=== PATIENT | male | born 1940 | race Caucasian/White ===

== ENCOUNTER 2016-09-16 13:56 | Outpatient (CLI) | payer MEDICARE | END 2016-09-16 13:57 | disposition home or self-care (01) | DX: E87.5 Hyperkalemia (principal) ==

== ENCOUNTER 2017-10-25 08:00 | Outpatient (CLI) | payer MEDICARE ==
[2017-10-25 13:33] LABS: ALBUMIN 3.9 g/dL (3.2-5.5); ALBUMIN/GLOBULIN RATIO 1.3 (1.0-2.2); ALKALINE PHOSPHATASE 73 IU/L (42-121); ALT ALANINE AMINOTRANSFERASE 41 IU/L (10-60); AST ASPARTATE AMINOTRANSFERASE 40 IU/L (10-42); BILIRUBIN,TOTAL 0.6 mg/dL (0.2-1.0); BUN - BLOOD UREA NITROGEN 12 mg/dL (6-20); CALCIUM 9.2 mg/dL (8.5-10.3); CARBON DIOXIDE - CO2 27 mmol/L (21-32); CHLORIDE 98 mmol/L (101-111); CHOLESTEROL 139 mg/dL; CREATININE 1.1 mg/dL (0.6-1.2); GFR - MDRD 65 (>89); GLUCOSE 132 mg/dL (70-100); HDL CHOLESTEROL 35 mg/dL; HEMOGLOBIN A1C 0.81 g/dL; HEMOGLOBIN A1C % 6.5 % (4.6-6.2); LDL CHOLESTEROL,CALCULATED 31 mg/dL; LDL/HDL RATIO 0.9 (<3.6); SODIUM 136 mmol/L (135-145); TOTAL PROTEIN 6.9 g/dL (6.7-8.2); VLDL CHOLESTEROL 73 mg/dL
== END 2017-10-25 08:01 | disposition home or self-care (01) ==
LOC: LAB.WCP 08:00
PROVIDERS: ATTEND Family Medicine
DX: E11.9 Type 2 diabetes mellitus without complications (principal); E78.9 Disorder of lipoprotein metabolism, unspecified; Z12.5 Encounter for screening for malignant neoplasm of prostate
CPT/HCPCS: 36415; 80053; 80061; 83036; G0103; 83721; 84153

== ENCOUNTER 2018-05-07 08:00 | Outpatient (CLI) | payer MEDICARE ==
[2018-05-08 14:12] LABS: HEPATITIS A IGM NON-REACTIVE (NON-REACTIVE); HEPATITIS B CORE ANTIBODY IGM NON-REACTIVE (NON-REACTIVE); HEPATITIS B SURFACE ANTIGEN NON-REACTIVE (NON-REACTIVE); HEPATITIS C ANTIBODY NON-REACTIVE (NON-REACTIVE)
== END 2018-05-07 08:01 | disposition home or self-care (01) ==
LOC: LAB.WCP 08:00
PROVIDERS: ATTEND Family Medicine
DX: R94.5 Abnormal results of liver function studies (principal)
CPT/HCPCS: 36415; 80074

== ENCOUNTER 2018-12-24 08:00 | Outpatient (CLI) | payer MEDICARE ==
[2018-12-24 19:33] LABS: CALCIUM 9.6 mg/dL (8.5-10.3); CREATININE 0.9 mg/dL (0.6-1.2); MAGNESIUM 2.5 mg/dL (1.7-2.8)
== END 2018-12-24 23:59 | disposition home or self-care (01) ==
LOC: LAB.WCP 08:00
PROVIDERS: ATTEND Physician Assistant Medical
DX: R25.2 Cramp and spasm (principal)
CPT/HCPCS: 36415; 80048; 83735

== ENCOUNTER 2018-12-27 07:10 | Outpatient (CLI) | payer MEDICARE ==
[2018-12-27 12:49] LABS: BASOPHILS # (AUTO) 0.1 10^3/uL (0.0-0.1); BASOPHILS % (AUTO) 1.1 %; EOSINOPHILS % (AUTO) 0.2 %; HGB - HEMOGLOBIN 15.3 g/dL (14.0-18.0); LYMPHOCYTES # (AUTO) 1.3 10^3/uL (1.5-3.5); LYMPHOCYTES % (AUTO) 24.9 %; MEAN CORPUSCULAR HEMOGLOBIN 30.9 pg (27.0-31.0); MEAN CORPUSCULAR HGB CONC 33.7 g/dL (32.0-36.0); MEAN CORPUSCULAR VOLUME 91.6 fL (80.0-94.0); MEAN PLATELET VOLUME 9.3 fL (7.4-11.4); MONOCYTES # (AUTO) 0.5 10^3/uL (0.0-1.0); MONOCYTES % (AUTO) 8.7 %; NEUTROPHILS # (AUTO) 3.5 10^3/uL (1.5-6.6); NEUTROPHILS % (AUTO) 65.1 %; PLT - PLATELET COUNT 145 10^3/uL (130-450); RED BLOOD COUNT 4.93 10^6/uL (4.70-6.10); RED CELL DISTRIBUTION WIDTH 13.4 % (12.0-15.0); WHITE BLOOD COUNT 5.3 x10^3/uL (4.8-10.8)
[2018-12-27 13:33] LABS: ALBUMIN/GLOBULIN RATIO 1.4 (1.0-2.2); ALKALINE PHOSPHATASE 85 IU/L (42-121); ALT ALANINE AMINOTRANSFERASE 108 IU/L (10-60); AST ASPARTATE AMINOTRANSFERASE 123 IU/L (10-42); BILIRUBIN,TOTAL 0.8 mg/dL (0.2-1.0); BUN - BLOOD UREA NITROGEN 15 mg/dL (6-20); CALCIUM 9.4 mg/dL (8.5-10.3); CARBON DIOXIDE - CO2 27 mmol/L (21-32); CHLORIDE 100 mmol/L (101-111); CHOL/HDL RATIO 4.2 (<5.0); CHOLESTEROL 166 mg/dL; CREATININE 1.1 mg/dL (0.6-1.2); GFR - MDRD 65 (>89); GLUCOSE 199 mg/dL (70-100); HDL CHOLESTEROL 40 mg/dL; SODIUM 136 mmol/L (135-145); TOTAL PROTEIN 6.8 g/dL (6.7-8.2)
[2018-12-27 13:55] LABS: LDL CHOLESTEROL,DIRECT 75 mg/dL; LDLD/HDL RATIO 1.9 (<3.6)
[2018-12-27 14:04] LABS: FREE T4 (FREE THYROXINE) 0.72 ng/dL (0.58-1.64)
[2018-12-27 14:29] LABS: HB2 TOTAL 16.6 g/dL; HEMOGLOBIN A1C 1.09 g/dL; HEMOGLOBIN A1C % 8.2 % (4.6-6.2)
== END 2018-12-27 23:59 ==
LOC: LAB.WCP 07:10
PROVIDERS: ATTEND Family Medicine
DX: E11.9 Type 2 diabetes mellitus without complications (principal); R00.1 Bradycardia, unspecified; I25.10 Atherosclerotic heart disease of native coronary artery without angina pectoris
CPT/HCPCS: 36415; 80053; 80061; 83036; 83721; 84439; 84443; 85025

== ENCOUNTER 2020-03-19 16:20 | Outpatient (CLI) | payer MEDICARE | END 2020-03-19 16:21 | disposition short-term general hospital (02) | LOC: EMS 16:20 | PROVIDERS: ATTEND Surgery | DX: R07.9 Chest pain, unspecified (principal) | CPT/HCPCS: A0425; A0433 ==

== ENCOUNTER 2020-10-05 07:13 | Outpatient (CLI) | payer MEDICARE ==
[2020-10-05 12:43] LABS: BASOPHILS # (AUTO) 0.1 10^3/uL (0.0-0.1); BASOPHILS % (AUTO) 1.3 %; EOSINOPHILS # (AUTO) 0.2 10^3/uL (0.0-0.7); EOSINOPHILS % (AUTO) 5.1 %; HGB - HEMOGLOBIN 15.5 g/dL (14.0-18.0); LYMPHOCYTES # (AUTO) 1.1 10^3/uL (1.5-3.5); MEAN CORPUSCULAR HEMOGLOBIN 31.8 pg (27.0-31.0); MEAN CORPUSCULAR HGB CONC 34.5 g/dL (32.0-36.0); MEAN PLATELET VOLUME 11.3 fL (7.4-11.4); MONOCYTES # (AUTO) 0.3 10^3/uL (0.0-1.0); MONOCYTES % (AUTO) 7.6 %; NEUTROPHILS # (AUTO) 2.7 10^3/uL (1.5-6.6); NEUTROPHILS % (AUTO) 60.8 %; PLT - PLATELET COUNT 150 10^3/uL (130-450); RED BLOOD COUNT 4.88 10^6/uL (4.70-6.10); RED CELL DISTRIBUTION WIDTH 12.4 % (12.0-15.0); WHITE BLOOD COUNT 4.5 x10^3/uL (4.8-10.8)
[2020-10-05 13:20] LABS: ALBUMIN 3.6 g/dL (3.2-5.5); ALBUMIN/GLOBULIN RATIO 1.2 (1.0-2.2); ALKALINE PHOSPHATASE 81 IU/L (42-121); ALT ALANINE AMINOTRANSFERASE 36 IU/L (10-60); AST ASPARTATE AMINOTRANSFERASE 27 IU/L (10-42); BILIRUBIN,TOTAL 0.7 mg/dL (0.2-1.0); BUN - BLOOD UREA NITROGEN 19 mg/dL (6-20); CALCIUM 9.3 mg/dL (8.5-10.3); CARBON DIOXIDE - CO2 28 mmol/L (21-32); CHLORIDE 95 mmol/L (101-111); CHOL/HDL RATIO 6.3 (<5.0); CHOLESTEROL 232 mg/dL; GLUCOSE 365 mg/dL (70-100); HDL CHOLESTEROL 37 mg/dL; TOTAL PROTEIN 6.5 g/dL (6.7-8.2); URIC ACID 3.5 mg/dL (2.6-7.2)
[2020-10-05 13:37] LABS: CREATININE,URINE 52.4 mg/dL; MICROALBUM/CREATININE RATIO,UR 240.5 ug/mg (<30.0); MICROALBUMIN,URINE 12.6 mg/dL (0-300.0)
[2020-10-05 13:53] LABS: HEMOGLOBIN A1c% 12.4 % (4.27-6.07)
[2020-10-05 14:05] LABS: LDL CHOLESTEROL,DIRECT 101 mg/dL; LDLD/HDL RATIO 2.7 (<3.6)
[2020-10-05 14:10] LABS: FREE T4 (FREE THYROXINE) 0.72 ng/dL (0.58-1.64)
== END 2020-10-05 23:59 | disposition home or self-care (01) ==
LOC: LAB.WCP 07:13
PROVIDERS: ATTEND Family Medicine
DX: E11.9 Type 2 diabetes mellitus without complications (principal); M10.9 Gout, unspecified
CPT/HCPCS: 36415; 80053; 80061; 82043; 82570; 83036; 83721; 84439; 84443; 84550; 85025

== ENCOUNTER 2021-02-04 08:00 | Outpatient (CLI) | payer MEDICARE ==
[2021-02-04 12:22] LABS: BASOPHILS % (AUTO) 0.8 %; EOSINOPHILS % (AUTO) 0.2 %; HCT - HEMATOCRIT 44.8 % (42.0-52.0); HGB - HEMOGLOBIN 15.9 g/dL (14.0-18.0); LYMPHOCYTES # (AUTO) 1.4 10^3/uL (1.5-3.5); LYMPHOCYTES % (AUTO) 25.4 %; MEAN CORPUSCULAR HEMOGLOBIN 32.4 pg (27.0-31.0); MEAN CORPUSCULAR HGB CONC 35.5 g/dL (32.0-36.0); MEAN CORPUSCULAR VOLUME 91.2 fL (80.0-94.0); MEAN PLATELET VOLUME 11.3 fL (7.4-11.4); MONOCYTES # (AUTO) 0.4 10^3/uL (0.0-1.0); MONOCYTES % (AUTO) 8.3 %; NEUTROPHILS # (AUTO) 3.5 10^3/uL (1.5-6.6); NEUTROPHILS % (AUTO) 65.1 %; PLT - PLATELET COUNT 156 10^3/uL (130-450); RED BLOOD COUNT 4.91 10^6/uL (4.70-6.10); RED CELL DISTRIBUTION WIDTH 12.5 % (12.0-15.0); WHITE BLOOD COUNT 5.3 x10^3/uL (4.8-10.8)
[2021-02-04 12:33] LABS: ESTIMATED AVERAGE GLUCOSE 344 mg/dL (70-100); HEMOGLOBIN A1c% 13.6 % (4.27-6.07)
[2021-02-04 12:39] LABS: ALBUMIN 3.9 g/dL (3.2-5.5); ALBUMIN/GLOBULIN RATIO 1.2 (1.0-2.2); ALKALINE PHOSPHATASE 104 IU/L (42-121); ALT ALANINE AMINOTRANSFERASE 61 IU/L (10-60); AST ASPARTATE AMINOTRANSFERASE 45 IU/L (10-42); BILIRUBIN,TOTAL 1.1 mg/dL (0.2-1.0); BUN - BLOOD UREA NITROGEN 25 mg/dL (6-20); CALCIUM 9.5 mg/dL (8.5-10.3); CARBON DIOXIDE - CO2 25 mmol/L (21-32); CHLORIDE 97 mmol/L (101-111); CHOL/HDL RATIO 6.5 (<5.0); CHOLESTEROL 279 mg/dL; CREATININE 0.9 mg/dL (0.6-1.2); GFR - MDRD 81 (>89); GLUCOSE 368 mg/dL (70-100); HDL CHOLESTEROL 43 mg/dL; POTASSIUM 4.5 mmol/L (3.5-5.0); SODIUM 131 mmol/L (135-145); THYROID STIMULATING HORMONE 4.05 uIU/mL (0.34-5.60); TOTAL PROTEIN 7.2 g/dL (6.7-8.2); TRIGLYCERIDES 613 mg/dL
[2021-02-04 13:09] LABS: LDL CHOLESTEROL,DIRECT 124 mg/dL; LDLD/HDL RATIO 2.9 (<3.6)
== END 2021-02-04 23:59 | disposition home or self-care (01) ==
LOC: LAB.WCP 08:00
PROVIDERS: ATTEND Family Medicine
DX: E11.8 Type 2 diabetes mellitus with unspecified complications (principal); F03.90 Unspecified dementia, unspecified severity, without behavioral disturbance, psychotic disturbance, mood disturbance, and anxiety
CPT/HCPCS: 36415; 80053; 80061; 82607; 83036; 83721; 84443; 85025; 86592

== ENCOUNTER 2021-05-18 08:00 | Outpatient (CLI) | payer MEDICARE ==
--- NOTE | 2021-05-18 11:02 | XRAY Report ---
PROCEDURE: Knee 4 View LT INDICATIONS: L KNEE PX TECHNIQUE: 4 views of the left knee(s) were acquired. COMPARISON: None. FINDINGS: Bones: No fractures or dislocations. No suspicious bony lesions. There is tricompartmental knee albertina int degeneration, most pronounced in the medial femorotibial compartment and patellofemoral compartme nt. Soft tissues: Small joint effusion. No suspicious soft tissue calcifications. Vascular calcificatio ns consistent with atherosclerosis. IMPRESSION: 1. Moderate tricompartmental osteoarthritis. 2. Small knee joint effusion. Reviewed by: Natalie Courtney MD on 05/18/2021 11:00 AM PDT Approved by: Natalie Courtney MD on 05/18/2021 11:00 AM PDT Station ID: [id number]
== END 2021-05-18 23:59 | disposition home or self-care (01) ==
LOC: DI.N 08:00
PROVIDERS: ATTEND Nurse Practitioner
DX: M17.12 Unilateral primary osteoarthritis, left knee (principal); M25.462 Effusion, left knee

== ENCOUNTER 2021-05-28 17:36 | Outpatient (CLI) | payer MEDICARE | END 2021-05-28 17:37 | disposition critical access hospital (66) | LOC: EMS 17:36 | DX: Z04.3 Encounter for examination and observation following other accident (principal); E11.65 Type 2 diabetes mellitus with hyperglycemia; Z79.84 Long term (current) use of oral hypoglycemic drugs | CPT/HCPCS: A0425; A0429 ==

== ENCOUNTER 2021-05-28 17:57 | Emergency (ER) | payer MEDICARE ==
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
[2021-05-28] MEDS ORDERED: SODIUM CHLORIDE 0.9% 1,000 ML IV STA (18:48)
[2021-05-28] MEDS ORDERED: INSULIN REGULAR HUMAN 100 UNIT/1 ML 10 ML MDV IVP STA (18:49)
[2021-05-28 20:22] LABS: CALCIUM 8.9 mg/dL (8.5-10.3); CREATININE 0.8 mg/dL (0.6-1.2); MAGNESIUM 1.8 mg/dL (1.7-2.8); PHOSPHORUS 2.8 mg/dL (2.5-4.6); POTASSIUM 4.3 mmol/L (3.5-5.0)
[2021-05-28 20:26] LABS: BILIRUBIN,URINE NEGATIVE (NEGATIVE); GLUCOSE, URINE (UA) >=1000 mg/dL (NEGATIVE); KETONES,URINE (UA) NEGATIVE (NEGATIVE); LEUKOCYTE ESTERASE, URINE NEGATIVE (NEGATIVE); NITRITE,URINE NEGATIVE (NEGATIVE); OCCULT BLOOD,URINE TRACE-LYSE (NEGATIVE); PROTEIN,URINE TRACE mg/dL (NEGATIVE); UROBILINOGEN,URINE 0.2 (NORMAL) E.U./dL (NORMAL)
[2021-05-28 20:28] LABS: CLARITY,URINE CLEAR (CLEAR)
[2021-05-28 20:28] LABS: BASOPHILS # (AUTO) 0.1 10^3/uL (0.0-0.1); BASOPHILS % (AUTO) 1.1 %; EOSINOPHILS % (AUTO) 0.2 %; HCT - HEMATOCRIT 39.8 % (42.0-52.0); HGB - HEMOGLOBIN 14.6 g/dL (14.0-18.0); LYMPHOCYTES # (AUTO) 1.1 10^3/uL (1.5-3.5); LYMPHOCYTES % (AUTO) 21.2 %; MEAN CORPUSCULAR HGB CONC 36.7 g/dL (32.0-36.0); MEAN PLATELET VOLUME 10.6 fL (7.4-11.4); MONOCYTES # (AUTO) 0.5 10^3/uL (0.0-1.0); MONOCYTES % (AUTO) 9.6 %; NEUTROPHILS # (AUTO) 3.6 10^3/uL (1.5-6.6); NEUTROPHILS % (AUTO) 67.5 %; PLT - PLATELET COUNT 198 10^3/uL (130-450); RED BLOOD COUNT 4.42 10^6/uL (4.70-6.10); RED CELL DISTRIBUTION WIDTH 12.5 % (12.0-15.0); WHITE BLOOD COUNT 5.3 x10^3/uL (4.8-10.8)
[2021-05-28 20:55] VITALS: BP 177/82
--- NOTE | 2021-05-29 13:40 | CT Report ---
PROCEDURE: CERVICAL SPINE WO INDICATIONS: head injury TECHNIQUE: Noncontrast 3 mm thick sections acquired from the skull base to the T4 level. Sagittal and coronal r eformats were then constructed. For radiation dose reduction, the following was used: automated exp osure control, adjustment of mA and/or kV according to patient size. COMPARISON: Cervical spine MRI 05/03/2011. FINDINGS: Image quality: Excellent. Bones: No acute fractures or dislocations. Visualized superior ribs are intact. Straightening of t he normal cervical lordosis is most likely secondary to positioning. Mild degenerative changes are se en in the cervical spine that are worst at the C5-6 and C6-7 levels. No high-grade spinal canal narro wing. Soft tissues: Prevertebral soft tissues are normal in thickness. No paravertebral hematomas. No ap ical pneumothoraces. Atherosclerotic calcifications are seen in the carotid bifurcations and the aort ic arch. IMPRESSION: No acute cervical spine fracture or subluxation. Preliminary findings were discussed with the emergency department physician, Dr. Garcia, on the night the study was performed, and this report is being submitted later secondary to system downtime. Reviewed by: Mahendra Pantoja MD on 05/29/2021 1:39 PM PDT Approved by: Mahendra Pantoja MD on 05/29/2021 1:39 PM PDT Station ID: [id number]
--- NOTE | 2021-05-29 13:42 | CT Report ---
PROCEDURE: HEAD WO INDICATIONS: head injury TECHNIQUE: Noncontrast 4.5 mm thick angled axial sections acquired from the foramen magnum to the vertex. For r adiation dose reduction, the following was used: automated exposure control, adjustment of mA and/or kV according to patient size. COMPARISON: None. FINDINGS: Image quality: Excellent. CSF spaces: Basal cisterns are patent. No extra-axial fluid collections. Ventricles are symmetric in size and shape. Brain: No midline shift. No acute intraparenchymal hemorrhage or mass effect. There is mild diffuse cerebral and cerebellar volume loss for age. Mild scattered hypodensities in the subcortical and rene ventricular white matter nonspecific, but most commonly encountered in the setting of chronic microva scular ischemic changes. Skull and face: Calvarium and visualized facial bones are intact, without suspicious lesions. Sinuses: Visualized sinuses and mastoids are clear. IMPRESSION: No acute intracranial abnormality. Preliminary findings were discussed with the emergency department physician, Dr. Garcia, on the night the study was performed, and this report is being submitted later secondary to system downtime. Reviewed by: Mahendra Pantoja MD on 05/29/2021 1:41 PM PDT Approved by: Mahendra Pantoja MD on 05/29/2021 1:41 PM PDT Station ID: [id number]
--- NOTE | 2021-05-29 13:44 | XRAY Report ---
PROCEDURE: Chest 1 View X-Ray INDICATIONS: altered TECHNIQUE: One view of the chest was acquired. COMPARISON: Chest radiographs dated 02/28/2017 FINDINGS: Surgical changes and devices: None. Lungs and pleura: No pleural effusions or pneumothorax. Lungs are clear. Mediastinum: Mediastinal contours appear normal. Heart size is normal. Mild aortic atherosclerotic calcifications. Bones and chest wall: No suspicious bony lesions. Overlying soft tissues appear unremarkable. IMPRESSION: No acute cardiopulmonary abnormality. Preliminary findings were discussed with the emergency department physician, Dr. Garcia, on the night the study was performed, and this report is being submitted later secondary to system downtime. Reviewed by: Mahendra Pantoja MD on 05/29/2021 1:42 PM PDT Approved by: Mahendra Pantoja MD on 05/29/2021 1:42 PM PDT Station ID: [id number]
--- NOTE | 2021-05-29 13:46 | XRAY Report ---
PROCEDURE: Hip w/Pelvis 2-3V RT INDICATIONS: hip inj TECHNIQUE: AP pelvis with lateral view of the right hip. COMPARISON: CT abdomen/pelvis 05/14/2013. FINDINGS: Bones: No acute fractures or dislocations. Pelvic ring appears intact. No suspicious bony lesions. Degenerative changes are seen in the included lumbar spine in the sacroiliac joints. There are mild symmetric degenerative changes in the hips. Soft tissues: The visualized bowel gas pattern is normal. No suspicious soft tissue calcifications. IMPRESSION: No acute osseous abnormality. If there is clinical concern or persistent symptoms, addit ional imaging such as repeat radiographs or advanced imaging (e.g. CT, MRI) may be helpful for furthe r evaluation. Preliminary findings were discussed with the emergency department physician, Dr. Garcia, on the night the study was performed, and this report is being submitted later secondary to system downtime. Reviewed by: Mahendra Pantoja MD on 05/29/2021 1:45 PM PDT Approved by: Mahendra Pantoja MD on 05/29/2021 1:45 PM PDT Station ID: [id number]
== END 2021-05-28 20:52 | disposition home or self-care (01) ==
LOC: EDUNIT# → ED 17:57 → SUPCPDRO 17:57 → ED 20:52
DX: E11.65 Type 2 diabetes mellitus with hyperglycemia (principal); S09.90XA Unspecified injury of head, initial encounter; S70.01XA Contusion of right hip, initial encounter; Z79.84 Long term (current) use of oral hypoglycemic drugs; W18.39XA Other fall on same level, initial encounter; Y93.01 Activity, walking, marching and hiking
CPT/HCPCS: 36415; 70450; 71045; 72125; 73502; 80048; 81003; 83605; 83735; 84100; 85025; 99281; 99284; J1815; 81001; 87086

== ENCOUNTER 2021-06-23 21:26 | Outpatient (CLI) | payer MEDICARE | END 2021-06-23 21:27 | disposition critical access hospital (66) | LOC: EMS 21:26 | DX: R41.0 Disorientation, unspecified (principal) | CPT/HCPCS: A0425; A0429 ==

== ENCOUNTER 2021-06-23 21:44 | Emergency (ER) | payer MEDICARE ==
[2021-06-23 22:17] LABS: MUDS CUTOFF CONCENTRATIONS CUTOFF CONC BELOW:
[2021-06-23 22:20] LABS: BILIRUBIN,URINE NEGATIVE (NEGATIVE); GLUCOSE, URINE (UA) >=1000 mg/dL (NEGATIVE); KETONES,URINE (UA) NEGATIVE (NEGATIVE); LEUKOCYTE ESTERASE, URINE NEGATIVE (NEGATIVE); NITRITE,URINE NEGATIVE (NEGATIVE); OCCULT BLOOD,URINE NEGATIVE (NEGATIVE); PROTEIN,URINE NEGATIVE (NEGATIVE); UROBILINOGEN,URINE 0.2 (NORMAL) E.U./dL (NORMAL)
[2021-06-23 22:29] LABS: BASOPHILS # (AUTO) 0.1 10^3/uL (0.0-0.1); BASOPHILS % (AUTO) 0.9 %; EOSINOPHILS % (AUTO) 0.5 %; HCT - HEMATOCRIT 38.7 % (42.0-52.0); HGB - HEMOGLOBIN 14.1 g/dL (14.0-18.0); LYMPHOCYTES # (AUTO) 1.5 10^3/uL (1.5-3.5); LYMPHOCYTES % (AUTO) 25.5 %; MEAN CORPUSCULAR HEMOGLOBIN 32.9 pg (27.0-31.0); MEAN CORPUSCULAR HGB CONC 36.4 g/dL (32.0-36.0); MEAN CORPUSCULAR VOLUME 90.2 fL (80.0-94.0); MEAN PLATELET VOLUME 10.5 fL (7.4-11.4); MONOCYTES # (AUTO) 0.6 10^3/uL (0.0-1.0); MONOCYTES % (AUTO) 10.4 %; NEUTROPHILS # (AUTO) 3.7 10^3/uL (1.5-6.6); NEUTROPHILS % (AUTO) 62.4 %; PLT - PLATELET COUNT 203 10^3/uL (130-450); RED BLOOD COUNT 4.29 10^6/uL (4.70-6.10); RED CELL DISTRIBUTION WIDTH 12.5 % (12.0-15.0); WHITE BLOOD COUNT 5.9 x10^3/uL (4.8-10.8)
[2021-06-23 22:32] LABS: AMPHETAMINE SCREEN,URINE NEGATIVE (NEGATIVE); BARBITURATE SCREEN,UR NEGATIVE (NEGATIVE); BENZODIAZEPINES SCREEN, URINE NEGATIVE (NEGATIVE); CLARITY,URINE CLEAR (CLEAR); COCAINE SCREEN URINE NEGATIVE (NEGATIVE); METHADONE SCREEN, URINE NEGATIVE (NEGATIVE); METHAMPHETAMINES SCREEN, URINE NEGATIVE (NEGATIVE); OPIATE SCREEN, URINE NEGATIVE (NEGATIVE); OXYCODONE SCREEN, URINE NEGATIVE (NEGATIVE); PROPOXYPHENE SCREEN, URINE NEGATIVE (NEGATIVE); THC CANNABINOID SCREEN, URINE NEGATIVE (NEGATIVE); TRICYCLIC ANTIDEPRESSANT,URINE NEGATIVE (NEGATIVE)
[2021-06-23 22:46] LABS: CALCIUM 9.6 mg/dL (8.5-10.3); CARBON DIOXIDE - CO2 22 mmol/L (21-32); CHLORIDE 94 mmol/L (101-111); GLUCOSE 486 mg/dL (70-100); POTASSIUM 4.4 mmol/L (3.5-5.0); SODIUM 127 mmol/L (135-145)
--- NOTE | 2021-06-23 22:56 | CT Report ---
PROCEDURE: HEAD WO INDICATIONS: dementia, worsening confusion today TECHNIQUE: Noncontrast 4.5 mm thick angled axial sections acquired from the foramen magnum to the vertex. For r adiation dose reduction, the following was used: automated exposure control, adjustment of mA and/or kV according to patient size. COMPARISON: CT head 05/28/2021. FINDINGS: Image quality: Excellent. CSF spaces: Basal cisterns are patent. No extra-axial fluid collections. Ventricles are symmetric in size and shape. Brain: No midline shift. No acute intracranial hemorrhage or mass effect. Mild diffuse cerebral and cerebellar volume loss is seen for age with resulting prominence of the ventricles and sulci. Mild sc attered hypodensities in the subcortical and periventricular white matter are nonspecific, but most c ommonly encountered in the setting of chronic microvascular ischemic changes. Skull and face: Calvarium and visualized facial bones are intact, without suspicious lesions. Sinuses: Visualized sinuses and mastoids are clear. IMPRESSION: No acute intracranial abnormality. Reviewed by: Mahendra Pantoja MD on 06/23/2021 10:55 PM PDT Approved by: Mahendra Pantoja MD on 06/23/2021 10:55 PM PDT Station ID: [id number]
[2021-06-23 23:23] LABS: ACETAMINOPHEN < 10 ug/mL (10-30); ALBUMIN 3.5 g/dL (3.2-5.5); ALBUMIN/GLOBULIN RATIO 1.2 (1.0-2.2); ALKALINE PHOSPHATASE 93 IU/L (42-121); ALT ALANINE AMINOTRANSFERASE 70 IU/L (10-60); AST ASPARTATE AMINOTRANSFERASE 39 IU/L (10-42); BILIRUBIN,TOTAL 0.5 mg/dL (0.2-1.0); BUN - BLOOD UREA NITROGEN 54 mg/dL (6-20); CREATININE 0.9 mg/dL (0.6-1.2); ETOH - ETHANOL < 5.0 mg/dL; GFR - MDRD 81 (>89); LIPASE 37 U/L (22-51); SALICYLATE < 6.0 mg/dL; TOTAL PROTEIN 6.5 g/dL (6.7-8.2)
[2021-06-23] MEDS ORDERED: INSULIN REGULAR HUMAN 100 UNIT/1 ML 10 ML MDV IVP STA (23:47)
[2021-06-23] MEDS ORDERED: ACETAMINOPHEN 325 MG TABLET PO STA (23:48)
--- NOTE | 2021-06-24 00:10 | ED Physician Documentation ---
History of Present Illness - Stated complaint Stated Complaint: INCREASED CONFUSION - Chief complaint Chief Complaint: Neuro - History obtained from History obtained from: Patient - Additonal information Additional information: 81yM with pmh dementia presents with confusion this evening. Patient is AOX2 (person and place, not time). further history limited by patient dementia. Review of Systems Unable to obtain: Dementia PD PAST MEDICAL HISTORY - Past Medical History Cardiovascular: Hypertension, High cholesterol, Coronary artery disease Respiratory: Pneumonia Neuro: Dementia Endocrine/Autoimmune: Type 2 diabetes GI: Diverticulitis HEENT: Macular degeneration Musculoskeletal: Gout - Past Surgical History Past Surgical History: Yes General: Cholecystectomy, Bowel surgery (colon resection) Cardiovascular: Angioplasty - Present Medications Home Medications: Ambulatory Orders Medication Instructions Recorded Confirmed Aspirin Chewable [[place] 81 DAILY 01/11/13 01/11/13 Aspirin] Epinephrine [Epipen] 0.3 mg IM ONCE PRN #1 01/11/13 Imipramine HCl 100 mg PO HS 01/11/13 01/11/13 Lisinopril 10 01/11/13 01/11/13 Lubiprostone [Amitiza] 24 mcg PO DAILY 01/11/13 01/11/13 Metformin HCl 1,000 mg PO BID 01/11/13 01/11/13 Nitroglycerin [Nitrostat] 0.4 mg SL Q5MIN PRN 01/11/13 01/11/13 [place]-3 Fatty Acids/Fish Oil [Fish 1 each PO BID 01/11/13 01/11/13 Oil 1,000 mg Capsule] Senna [Senokot] 17.2 mg PO DAILY 01/11/13 01/11/13 carisoprodoL [Soma] 350 mg PO Q6H PRN 01/11/13 01/11/13 glipiZIDE [Glucotrol Xl] 5 01/11/13 01/11/13 Pravastatin Sodium 10 mg PO DAILY 05/14/13 05/14/13 Cetirizine HCl [Zyrtec] 10 mg PO DAILY #5 capsule 01/27/14 predniSONE [Deltasone] 40 mg PO DAILY 5 Days tablet 01/27/14 - Allergies Allergies/Adverse Reactions: Allergies Allergy/AdvReac Type Severity Reaction Status Date / Time peanut Allergy Severe Respiratory Verified 05/28/21 18:44 - Social History Does the pt smoke?: No Smoking Status: Never smoker Does the pt drink ETOH?: No Does the pt have substance abuse?: No - Immunizations Immunizations are current?: Yes - POLST Patient has POLST: No PD ED PE NORMAL - Vitals Vital signs reviewed: Yes - General General: No acute distress, Well developed/nourished - HEENT HEENT: Atraumatic, PERRL, EOMI, Moist mucous membranes - Neck Neck: Supple, no meningeal sign - Cardiac Cardiac: RRR - Respiratory Respiratory: No respiratory distress, Clear bilaterally - Abdomen Abdomen: Non tender, Non distended - Back Back: No spinal TTP - Derm Derm: Normal color, Warm and dry - Extremities Extremities: No deformity - Neuro Neuro: No motor deficit, No sensory deficit, Normal speech - Psych Psych: Normal mood, Normal affect Results - Vitals Vitals: Vital Signs - 24 hr 06/23/21 06/23/21 06/24/21 21:50 23:55 01:27 Temperature 36.6 C 36.5 C 36.9 C Heart Rate 89 90 70 Respiratory 18 20 18 Rate Blood Pressure 143/85 H 153/85 H 131/56 H O2 Saturation 95 96 96 Oxygen O2 Source Room air - Labs Labs: Laboratory Tests 06/23/21 06/23/21 06/23/21 21:53 22:19 22:19 WBC 5.9 RBC 4.29 L Hgb 14.1 Hct 38.7 L MCV 90.2 MCH 32.9 H MCHC 36.4 H RDW 12.5 Plt Count 203 MPV 10.5 Neut # (Auto) 3.7 Lymph # (Auto) 1.5 [place] # (Auto) 0.6 Eos # (Auto) 0.0 Baso # (Auto) 0.1 Absolute Nucleated RBC 0.00 Nucleated RBC % 0.0 Sodium 127 L Potassium 4.4 Chloride 94 L Carbon Dioxide 22 Anion Gap 11.0 BUN 54 H Creatinine 0.9 Estimated GFR (MDRD) 81 L Glucose 486 H Calcium 9.6 Total Bilirubin 0.5 AST 39 ALT 70 H Alkaline Phosphatase 93 Total Protein 6.5 L Albumin 3.5 Globulin 3.0 Albumin/Globulin Ratio 1.2 Lipase 37 TSH Urine Color YELLOW Urine Clarity CLEAR Urine pH 6.0 Ur Specific [place] 1.010 Urine Protein NEGATIVE Urine Glucose (UA) >=1000 H Urine Ketones NEGATIVE Urine Occult Blood NEGATIVE Urine Nitrite NEGATIVE Urine Bilirubin NEGATIVE Urine Urobilinogen 0.2 (NORMAL) Ur Leukocyte Esterase NEGATIVE Ur Microscopic Review NOT INDICATED Urine Culture Comments NOT INDICATED Salicylates < 6.0 Urine Opiates Screen NEGATIVE Ur Oxycodone Screen NEGATIVE Urine Methadone Screen NEGATIVE Ur Propoxyphene Screen NEGATIVE Acetaminophen < 10 L Ur Barbiturates Screen NEGATIVE Ur Tricyclics Screen NEGATIVE Ur Phencyclidine Scrn NEGATIVE Ur Amphetamine Screen NEGATIVE U Methamphetamines Scrn NEGATIVE U Benzodiazepines Scrn NEGATIVE Urine Cocaine Screen NEGATIVE U Cannabinoids Screen NEGATIVE Ethyl Alcohol < 5.0 06/23/21 22:19 WBC RBC Hgb Hct MCV MCH MCHC RDW Plt Count MPV Neut # (Auto) Lymph # (Auto) [place] # (Auto) Eos # (Auto) Baso # (Auto) Absolute Nucleated RBC Nucleated RBC % Sodium Potassium Chloride Carbon Dioxide Anion Gap BUN Creatinine Estimated GFR (MDRD) Glucose Calcium Total Bilirubin AST ALT Alkaline Phosphatase Total Protein Albumin Globulin Albumin/Globulin Ratio Lipase TSH 6.89 H Urine Color Urine Clarity Urine pH Ur Specific [place] Urine Protein Urine Glucose (UA) Urine Ketones Urine Occult Blood Urine Nitrite Urine Bilirubin Urine Urobilinogen Ur Leukocyte Esterase Ur Microscopic Review Urine Culture Comments Salicylates Urine Opiates Screen Ur Oxycodone Screen Urine Methadone Screen Ur Propoxyphene Screen Acetaminophen Ur Barbiturates Screen Ur Tricyclics Screen Ur Phencyclidine Scrn Ur Amphetamine Screen U Methamphetamines Scrn U Benzodiazepines Scrn Urine Cocaine Screen U Cannabinoids Screen Ethyl Alcohol PD MEDICAL DECISION MAKING - ED course ED course: collateral info obtained from daughter Kim - Kim got message from mom to call her. she sounded stressed and put dad on phone. He started talking about how he needed to go home (even though he already was home). She told him to stay there then went over to the house and tried to convince him he was home, but he became tearful and threw his hat. He has been dealing with dementia, but it's never gotten this bad. His PCP is Dr. Orr. He has an appointment tomorrow about his legs. A month or two ago at 9pm at night he got confused in a similar way. d/w daughter that medical workup is unremarkable. patient will need to f/u with Dr. Orr for possible assisted living placement. return precautions given. Departure - Departure Disposition: 01 Home, Self Care Clinical Impression: Dementia, Hyperglycemia Condition: Stable Instructions: ED Dementia Caregiver Support Comments: Your parent was seen in the emergency department for dementia. His medical work-up including head CT, lab work, urine testing was unremarkable. He did have high blood sugar that was treated with insulin. Please follow-up with Dr. Orr for your 12 PM appointment. Return to the emergency department if you have any new or worsening symptoms or other concerns. Discharge Date/Time: 06/24/21 01:23
[2021-06-24] MEDS ORDERED: INSULIN REGULAR HUMAN 100 UNIT/1 ML 10 ML MDV IVP STA (00:26)
[2021-06-24 01:31] VITALS: BP 131/56
== END 2021-06-24 01:23 | disposition home or self-care (01) ==
LOC: EDUNIT# → SUPCPDRO 21:44 → ED 21:44
DX: F03.90 Unspecified dementia, unspecified severity, without behavioral disturbance, psychotic disturbance, mood disturbance, and anxiety (principal); E11.65 Type 2 diabetes mellitus with hyperglycemia; Z79.84 Long term (current) use of oral hypoglycemic drugs; I10 Essential (primary) hypertension; Z79.82 Long term (current) use of aspirin
CPT/HCPCS: 36415; 70450; 80053; 80306; 80307; 81003; 83690; 84443; 85025; 99281; 99284; A9270; G0480; J1815; 80320; 80329; 81001; 87086

== ENCOUNTER 2022-09-06 19:40 | Outpatient (CLI) | payer MEDICARE | END 2022-09-06 19:41 | disposition critical access hospital (66) | LOC: EMS 19:40 | DX: M79.89 Other specified soft tissue disorders (principal); R50.9 Fever, unspecified; R41.82 Altered mental status, unspecified | CPT/HCPCS: A0425; A0429 ==

== ENCOUNTER 2022-09-06 19:57 | Emergency (ER) | payer MEDICARE ==
[2022-09-06 20:10] VITALS: BP 109/53
--- NOTE | 2022-09-06 20:29 | ED Physician Documentation ---
History of Present Illness - Stated complaint Stated Complaint: SWOLLEN LEGS - Chief complaint Chief Complaint: General - History obtained from History obtained from: EMS - Additonal information Additional information: 82yM with pmh dementia and DM2 at baseline [facility] from [facility] with staff reporting to ems that his legs look more erythematous and swollen than usual. also with cough/uri symptoms. history limited by patient dementia at baseline Review of Systems Unable to obtain: Dementia PD PAST MEDICAL HISTORY - Past Medical History Cardiovascular: Hypertension, High cholesterol, Coronary artery disease Respiratory: Pneumonia Neuro: Dementia Endocrine/Autoimmune: Type 2 diabetes GI: Diverticulitis HEENT: Macular degeneration Musculoskeletal: Gout - Past Surgical History Past Surgical History: Yes General: Cholecystectomy, Bowel surgery (colon resection) Cardiovascular: Angioplasty - Present Medications Home Medications: Ambulatory Orders Medication Instructions Recorded Confirmed Epinephrine [Epipen] 0.3 mg IM ONCE PRN #1 01/11/13 09/06/22 Imipramine HCl 100 mg PO HS 01/11/13 09/06/22 Metformin HCl 1,000 mg PO BID 01/11/13 09/06/22 Atorvastatin Calcium 40 mg PO HS 09/06/22 09/06/22 Clopidogrel [Plavix] 75 mg PO DAILY 09/06/22 09/06/[address] [Voltaren] 75 mg PO BIDWM 09/06/22 09/06/22 Insulin Glargine [Lantus Solostar] 3 unit SQ DAILY 09/06/22 09/06/22 Losartan Potassium 25 mg PO DAILY 09/06/22 09/06/22 - Allergies Allergies/Adverse Reactions: Allergies Allergy/AdvReac Type Severity Reaction Status Date / Time peanut Allergy Severe Respiratory Verified 09/06/22 20:10 - Social History Does the pt smoke?: No Smoking Status: Never smoker Does the pt drink ETOH?: No Does the pt have substance abuse?: No - Immunizations Immunizations are current?: Yes - POLST Patient has POLST: No PD ED PE NORMAL - Vitals Vital signs reviewed: Yes - General General: No acute distress, Well developed/nourished, Other (mentating at baseline per ems) - HEENT HEENT: Atraumatic, PERRL, EOMI, Moist mucous membranes - Derm Derm: Normal color, Warm and dry, Other (no cellulitis. mild skin irritation at sockline without significant erythema) - Extremities Extremities: No calf tenderness / cord, Other (2+ BL LE DP pulses. normal sensation and movement. 1+ BL LE edema) - Neuro Neuro: No motor deficit, No sensory deficit - Psych Psych: Other (dementia at baseline) Results - Vitals Vitals: Vital Signs - 24 hr 09/06/22 20:05 Temperature 37.3 C Heart Rate 88 Respiratory 16 Rate Blood Pressure 109/53 L O2 Saturation 96 Oxygen O2 Source Room air PD Medical Decision Making - ED course ED course: 82yM presents for medical evaluation after presenting with URI symptoms and BL LE swelling and erythema per [facility] staff. patient well appearing on exam with minimal edema and erythema. low clinical concern for cellulitis at this time. no cracks between toes. plan to continue to monitor as outpatient and f/u with pcp. RVP sent. return precautions given. Departure - Departure Disposition: Home, Self Care Clinical Impression: Viral URI with cough, Encounter for medical screening examination Condition: Good Instructions: ED Viral Syndrome Comments: You were seen in the emergency department for evaluation of leg redness and swelling as well as cold symptoms. There does not appear to be a cellulitis/skin infection at this time but it should be monitored and he should see his primary care provider for follow up. A respiratory viral panel swab was sent to the laboratory to test for viruses. The results can be viewed on the patient health portal or by calling [facility]. Return to the emergency department for any new or worsening symptoms including fever or other concerns.
[2022-09-06 21:23] LABS: B. PARAPERTUSSIS- RESP PCR PAN NOT DETECTED; B. PERTUSSIS- RESP PCR PANEL NOT DETECTED; C. PNEUMONIAE- RESP PCR PANEL NOT DETECTED; CORONAVIRUS 229E-RESP PCR NOT DETECTED; CORONAVIRUS HKU1-RESP PCR NOT DETECTED; CORONAVIRUS NL63-RESP PCR NOT DETECTED; CORONAVIRUS OC43-RESP PCR NOT DETECTED; HUMAN METAPNEUMOVIRUS NOT DETECTED; INFLUENZA A- RESP PCR PANEL NOT DETECTED; INFLUENZA B - RESP PCR PANEL NOT DETECTED; M. PNEUMONIAE- RESP PCR PANEL NOT DETECTED; PARAINFLUENZA VIRUS 1 NOT DETECTED; PARAINFLUENZA VIRUS 2 NOT DETECTED; PARAINFLUENZA VIRUS 3 NOT DETECTED; PARAINFLUENZA VIRUS 4 NOT DETECTED; RHINOVIRUS/ENTEROVIRUS NOT DETECTED; RSV- RESP PCR PANEL DETECTED; SARS-CoV-2 -RESP PCR PANEL NOT DETECTED
== END 2022-09-06 22:19 | disposition home or self-care (01) ==
LOC: EDUNIT# → ED 19:57
DX: J06.9 Acute upper respiratory infection, unspecified (principal); R22.43 Localized swelling, mass and lump, lower limb, bilateral; I10 Essential (primary) hypertension; I25.10 Atherosclerotic heart disease of native coronary artery without angina pectoris; E11.9 Type 2 diabetes mellitus without complications; Z20.822 Contact with and (suspected) exposure to COVID-19
CPT/HCPCS: 87633; 99282; 99283

== ENCOUNTER 2022-09-06 22:29 | Outpatient (CLI) | payer MEDICARE | END 2022-09-06 22:30 | disposition home or self-care (01) | LOC: EMS 22:29 | PROVIDERS: ATTEND Emergency Medicine | DX: F03.90 Unspecified dementia, unspecified severity, without behavioral disturbance, psychotic disturbance, mood disturbance, and anxiety (principal); R41.0 Disorientation, unspecified; J06.9 Acute upper respiratory infection, unspecified | CPT/HCPCS: A0425; A0428 ==

== ENCOUNTER 2022-10-01 11:40 | Outpatient (CLI) | payer MEDICARE | END 2022-10-01 11:41 | disposition short-term general hospital (02) | LOC: EMS 11:40 | DX: M25.551 Pain in right hip (principal) | CPT/HCPCS: A0425; A0429 ==

== ENCOUNTER 2022-11-16 14:24 | Outpatient (CLI) | payer MEDICARE ==
--- NOTE | 2022-11-16 16:31 | Ultrasound Report ---
PROCEDURE: Pelvic Limited or F/U INDICATIONS: RIGHT GROIN PAIN TECHNIQUE: Real-time transabdominal scanning was performed of the right groin, with image documentation. COMPARISON: CT abdomen and pelvis 05/14/2013. FINDINGS: Right inguinal hernia containing bowel. The hernia is reducible. The hernia neck measures between 3.2 cm and 2.7 cm. The hernia is tender with palpation. IMPRESSION: Right inguinal hernia containing bowel. Reviewed by: David Leroy MD on 11/16/2022 4:30 PM [facility] Approved by: David Leroy MD on 11/16/2022 4:30 PM [facility] Station ID: [id number]
== END 2022-11-16 14:25 | disposition home or self-care (01) ==
LOC: DI 14:24
PROVIDERS: ATTEND Nurse Practitioner Family
DX: K40.90 Unilateral inguinal hernia, without obstruction or gangrene, not specified as recurrent (principal)

== ENCOUNTER 2022-11-26 14:56 | Outpatient (CLI) | payer MEDICARE | END 2022-11-26 14:57 | disposition critical access hospital (66) | LOC: EMS 14:56 | DX: R10.31 Right lower quadrant pain (principal); R19.03 Right lower quadrant abdominal swelling, mass and lump; R26.2 Difficulty in walking, not elsewhere classified | CPT/HCPCS: A0425; A0429 ==

== ENCOUNTER 2022-11-26 15:15 | Emergency (ER) | payer MEDICARE ==
--- OUTSIDE RECORDS SUMMARY | 2022-11-26 15:30 | EXTERNAL MEDICAL SUMMARY RPT | Continuity of Care Document ---
:1940 Author Organization [facility] Address [address] [place] [address] Phone Care Team Providers Name Role Phone Ana Lilia Christensen Unavailable Unavailable Maria, Provider Unavailable Unavailable Allergies No information. Encounters No information. Functional Status No information. Immunizations No information. Medications No information. Problems date description facility 2022-09-06 00:00 Impingement syndrome of shoulder region All 2022-09-06 00:00 Other affections of shoulder region, no t All elsewhere classified 2022-09-06 00:00 Actinic keratosis All 2022-09-06 00:00 Impingement syndrome of left shoulder All 2022-09-07 00:00 Impingement syndrome of shoulder region All 2022-09-07 00:00 Other affections of shoulder region, no t All elsewhere classified 2022-09-07 00:00 Actinic keratosis All 2022-09-07 00:00 Impingement syndrome of left shoulder All 2022-10-01 00:00 Anemia [facility] 2022-10-27 15:45 Pain in right hip [facility] Procedures date description facility 2022-10-01 00:00 Unilateral x-ray of hip, two views, wit h x-ray [facility] of pelvis Results/Labs test date author facility value unit interpret ation Result panel 1 (unknown) (no date[facility] ([facility]) Result panel 2 (unknown) (no date) (unknown[facility] Result panel 3 (unknown) (no date) (unknown[facility] Result panel 4 (unknown) (no date) (unknown[facility]) Result panel 5 (unknown) (no date) (unknown[facility]) Result panel 6 (unknown) (no date) (unknown[facility]) Result panel 7 (unknown) (no date) (unknown[facility]) Result panel 8 (unknown) (no date) (unknown[facility]) Result panel 9 (unknown) (no date) (unknown[facility]) Result panel 10 (unknown) (no date) (unknown[facility]) Result panel 11 (unknown) (no date) (unknown[facility]) Result panel 12 (unknown) (no date) (unknown[facility]) Result panel 13 (unknown) (no date) (unknown[facility]) Result panel 14 (unknown) (no date) (unknown[facility]) Result panel 15 (unknown) (no date) (unknown[facility]) Result panel 16 (unknown) (no date) (unknown[facility]) Result panel 17 (unknown) (no date) (unknown[facility]) Result panel 18 (unknown) (no date) (unknown[facility]) Result panel 19 (unknown) (no date) (unknown[facility]) Result panel 20 (unknown) (no date) (unknown[facility] Result panel 21 (unknown) (no date) (unknown[facility]) Result panel 22 (unknown) (no date) (unknown[facility]) Result panel 23 (unknown) (no date) (unknown[facility]) Result panel 24 (unknown) (no date) (unknown[facility]) Result panel 25 (unknown) (no date) (unknown[facility]) Result panel 26 (unknown) (no date) (unknown[facility]) Result panel 27 (unknown) (no date) (unknown[facility]) Result panel 28 (unknown) (no date) (unknown[facility]) Result panel 29 (unknown) (no date) (unknown[facility]) Result panel 30 (unknown) (no date) (unknown[facility]) Result panel 31 (unknown) (no date) (unknown[facility]) Result panel 32 (unknown) (no date) (unknown[facility]) Result panel 33 (unknown) (no date) (unknown[facility]) Result panel 34 (unknown) (no date) (unknown[facility]) Result panel 35 (unknown) (no date) (unknown[facility]) Result panel 36 (unknown) (no date) (unknown[facility]) Result panel 37 (unknown) (no date) (unknown[facility]) Result panel 38 (unknown) (no date) (unknown[facility]) Result panel 39 (unknown) (no date) (unknown[facility]) Result panel 40 (unknown) (no date) (unknown[facility]) Result panel 41 (unknown) (no date) (unknown[facility]) Result panel 42 (unknown) (no date) (unknown[facility]) Result panel 43 (unknown) (no date) (unknown[facility]) Result panel 44 (unknown) (no date) (unknown[facility]) Result panel 45 (unknown) (no date) (unknown[facility]) Result panel 46 (unknown) (no date) (unknown[facility]) Result panel 47 (unknown) (no date) (unknown[facility]) Result panel 48 (unknown) (no date) (unknown[facility]) Result panel 49 (unknown) (no date) (unknown[facility]) Result panel 50 (unknown) (no date) (unknown[facility]) Result panel 51 (unknown) (no date) (unknown[facility]) Result panel 52 (unknown) (no date) (unknown[facility]) Result panel 53 (unknown) (no date) (unknown[facility]) Result panel 54 (unknown) (no date) (unknown[facility]) Result panel 55 (unknown) (no date) (unknown[facility]) Result panel 56 (unknown) (no date) (unknown[facility]) Result panel 57 (unknown) (no date) (unknown[facility]) Result panel 58 (unknown) (no date) (unknown[facility]) Result panel 59 (unknown) (no date) (unknown[facility]) Result panel 60 (unknown) (no date) (unknown[facility]) Result panel 61 (unknown) (no date) (unknown[facility]) Result panel 62 (unknown) (no date) (unknown) [facility]) Result panel 63 (unknown) (no date) (unknown[facility]) Result panel 64 (unknown) (no date) (unknown[facility]) Result panel 65 (unknown) (no date) (unknown[facility]) Result panel 66 (unknown) (no date) (unknown) [facility]) Result panel 67 (unknown) (no date) (unknown[facility]) Result panel 68 (unknown) (no date) (unknown[facility]) Result panel 69 (unknown) (no date) (unknown[facility]) Result panel 70 (unknown) (no date) (unknown[facility]) Result panel 71 (unknown) (no date) (unknown[facility]) Result panel 72 (unknown) (no date) (unknown[facility]) Result panel 73 (unknown) (no date) (unknown[facility]) Result panel 74 (unknown) (no date) (unknown[facility]) Result panel 75 (unknown) (no date) (unknown[facility]) Result panel 76 (unknown) (no date) (unknown[facility]) Result panel 77 (unknown) (no date) (unknown[facility]) Result panel 78 (unknown) (no date) (unknown[facility]) Result panel 79 (unknown) (no (unknown) (unknown) (no value) (units (unk nown) date) unknown) (unknown) (no (unknown) (unknown) [id number] (units (unkno wn) date) unknown) (unknown) (no (unknown) (unknown) 10/01/22 (units (unkno wn) date) unknown) (unknown) (no (unknown) (unknown) 1. Mild symmetric (units (unknown) date) hip joint unknown) degeneration. (unknown) (no (unknown) (unknown) [address] [place] [address] (units (unknown) date) unknown) (unknown) (no (unknown) (unknown) 2. No acute (units (un known) date) fractures. unknown) (unknown) (no (unknown) (unknown) Accession Number: (units (unknown) date) [id number] unknown) (unknown) (no (unknown) (unknown) Age/Sex: 82 / M (units (unknown) date) Date of Service: unknown) (unknown) (no (unknown) (unknown) SUKHJINDER [facility] (units ( unknown) date) [id number] unknown) (unknown) (no (unknown) (unknown) Approved by: (units (u nknown) date) kalli Martinez M.D. on 10/01/2022 at 12:16 (unknown) (no (unknown) (unknown) Bones: No (units (unkn own) date) fractures or unknown) dislocations. Pelvic ring appears intact. No (unknown) (no (unknown) (unknown) COMPARISON: None. (units (unknown) date) unknown) (unknown) (no (unknown) (unknown) : 1940 (units (unknown) date) Acct:[id number] unknown) (unknown) (no (unknown) (unknown) Dictated by: (units (u nknown) date) kalli Martinez M.D. on 10/01/2022 at 12:14 (unknown) (no (unknown) (unknown) FINDINGS: (units (unkn own) date) unknown) (unknown) (no (unknown) (unknown) IMPRESSION: (units (un known) date) unknown) (unknown) (no (unknown) (unknown) INDICATIONS: (units (u nknown) date) reported right hip unknown) pain (unknown) (no (unknown) (unknown) [facility] (units (unknown) date) unknown) (unknown) (no (unknown) (unknown) Loc: ED (units (unkno wn) date) unknown) (unknown) (no (unknown) (unknown) Ordering (units (unkno wn) date) Provider: unknown) Ana Lilia Christensen D.O. (unknown) (no (unknown) (unknown) PROCEDURE: XR HIP (units (unknown) date) W PEL IF DONE RT unknown) 2V (unknown) (no (unknown) (unknown) Patient: (units (unkno wn) date) Jazmin Calderon unknown) MR#: [id number] (unknown) (no (unknown) (unknown) Procedure: XR hip (units (unknown) date) w pel if done RT unknown) 2V (unknown) (no (unknown) (unknown) Signed (units (unkno wn) date) unknown) (unknown) (no (unknown) (unknown) Soft tissues: The (units (unknown) date) visualized bowel unknown) gas pattern is normal. Scattered surgical (unknown) (no (unknown) (unknown) TECHNIQUE: AP (units ( unknown) date) pelvis with unknown) lateral view(s) of the right hip(s). (unknown) (no (unknown) (unknown) XRay Report (units (un known) date) unknown) (unknown) (no (unknown) (unknown) bilaterally. (units (u nknown) date) unknown) (unknown) (no (unknown) (unknown) calcification. (units (unknown) date) unknown) (unknown) (no (unknown) (unknown) changes (units (unkno wn) date) unknown) (unknown) (no (unknown) (unknown) clips. No (units (unkn own) date) unknown) (unknown) (no (unknown) (unknown) lesions. Mild (units ( unknown) date) degenerative unknown) acetabular spurring and subcortical cystic cystic (unknown) (no (unknown) (unknown) suspicious bony (units (unknown) date) unknown) (unknown) (no (unknown) (unknown) suspicious soft (units (unknown) date) tissue unknown) calcifications. Mild atherosclerotic arterial Result panel 80 (unknown) (no (unknown) (unknown) (no value) (units (unk nown) date) unknown) (unknown) (no (unknown) (unknown) 10/01/22 12:39 (units (unknown) date) unknown) (unknown) (no (unknown) (unknown) [id number] (units (unkno wn) date) unknown) (unknown) (no (unknown) (unknown) ABD:bowel sounds (units (unknown) date) normal, soft, unknown) non-tender, no guarding, rebound, rigidity, no (unknown) (no (unknown) (unknown) Age/Sex: 82 / M (units (unknown) date) unknown) (unknown) (no (unknown) (unknown) Allergies (units (unkn own) date) unknown) (unknown) (no (unknown) (unknown) Allergy/AdvReac (units (unknown) date) Type Severity unknown) Reaction Status Date / Time (unknown) (no (unknown) (unknown) Attestation: I (units (unknown) date) personally reviewed unknown) and interpreted this ECG as follows: (unknown) (no (unknown) (unknown) BACK: No cervical, (units (unknown) date) thoracic or lumbar unknown) vertebral point tenderness. Patient has (unknown) (no (unknown) (unknown) CBC Auto Diff (units ( unknown) date) [Complete Blood unknown) Count AUTO DIFF] Stat (unknown) (no (unknown) (unknown) CMP [Comprehensive (units (unknown) date) Metabolic Panel] unknown) Stat (unknown) (no (unknown) (unknown) Course (units (unkno wn) date) unknown) (unknown) (no (unknown) (unknown) Covid-19 + FLU A/B (units (unknown) date) + RSV - PCR Stat unknown) (unknown) (no (unknown) (unknown) : 1940 (units (unknown) date) Acct:[id number] unknown) (unknown) (no (unknown) (unknown) Date of Service: (units (unknown) date) 10/01/22 unknown) (unknown) (no (unknown) (unknown) ECG Data (units (unkno wn) date) unknown) (unknown) (no (unknown) (unknown) ED Orders (units (unkn own) date) unknown) (unknown) (no (unknown) (unknown) ER Physician: (units ( unknown) date) Ana Lilia Christensen D.O. unknown) (unknown) (no (unknown) (unknown) Emergency Report (units (unknown) date) unknown) (unknown) (no (unknown) (unknown) Exam Narrative: (units (unknown) date) unknown) (unknown) (no (unknown) (unknown) Exam (units (unkno wn) date) unknown) (unknown) (no (unknown) (unknown) GEN: Elderly (units (u nknown) date) appearing male, unknown) alert and oriented to self, patient appears to be (unknown) (no (unknown) (unknown) :No CVA (units (unkn own) date) tenderness unknown) (unknown) (no (unknown) (unknown) General (units (unkno wn) date) unknown) (unknown) (no (unknown) (unknown) HEART: Regular rate (unit s (unknown) date) and rhythm without unknown) murmur, clicks, rubs. No carotid bruits, (unknown) (no (unknown) (unknown) HEENT: Atraumatic, (units (unknown) date) pupils are equal unknown) round reactive to light, extraocular (unknown) (no (unknown) (unknown) HPI - General Adult (unit s (unknown) date) unknown) (unknown) (no (unknown) (unknown) HPI narrative: (units (unknown) date) unknown) (unknown) (no (unknown) (unknown) History of Present (units (unknown) date) Illness unknown) (unknown) (no (unknown) (unknown) INGREDIENT: NO (units (unknown) date) KNOWN - NO Allergy unknown) Unknown Uncoded 12/20/17 13:10 (unknown) (no (unknown) (unknown) [facility] (units (unknown) date) [address] [place] [address] unknown) [place] [address] (unknown) (no (unknown) (unknown) KNOWN DRUG ALLERGY (units (unknown) date) unknown) (unknown) (no (unknown) (unknown) LUNGS:Lungs clear (units (unknown) date) to auscultation, no unknown) wheezes, rales, crackles, chest moves (unknown) (no (unknown) (unknown) Limitations: other (units (unknown) date) (dementia) unknown) (unknown) (no (unknown) (unknown) Lipase Stat (units (un known) date) unknown) (unknown) (no (unknown) (unknown) MSCL: Non-tender (units (unknown) date) all 4 extremities, unknown) full range of motion, normal gait (unknown) (no (unknown) (unknown) Medical Decision (units (unknown) date) Making unknown) (unknown) (no (unknown) (unknown) Mode of arrival: (units (unknown) date) EMS unknown) (unknown) (no (unknown) (unknown) NEURO:CN 2-12 (units ( unknown) date) intact, sensation unknown) normal, clear speech. (unknown) (no (unknown) (unknown) Narrative (units (unkn own) date) unknown) (unknown) (no (unknown) (unknown) No edema bilateral (units (unknown) date) lower extremities. unknown) Patient weight bears without issue. (unknown) (no (unknown) (unknown) Ordered: (units (unkno wn) date) unknown) (unknown) (no (unknown) (unknown) Orders (units (unkno wn) date) unknown) (unknown) (no (unknown) (unknown) Patient: (units (unkno wn) date) Jazmin Calderon MR#: unknown) [id number] (unknown) (no (unknown) (unknown) ROS Unobtainable: (units (unknown) date) All systems reviewed unknown) + are unremarkable except as noted in HPI (unknown) (no (unknown) (unknown) Related Data (units (u nknown) date) unknown) (unknown) (no (unknown) (unknown) Review of Systems (units (unknown) date) unknown) (unknown) (no (unknown) (unknown) SKIN: No rash, (units (unknown) date) erythema, ecchymosis unknown) or other skin changes appreciated. (unknown) (no (unknown) (unknown) Sensation intact in (unit s (unknown) date) all 4 extremities. unknown) Patient has 2+ pulses upper and lower. (unknown) (no (unknown) (unknown) Signed By: (units (unk nown) date) unknown) (unknown) (no (unknown) (unknown) Source: patient, (units (unknown) date) EMS and old records unknown) reviewed (unknown) (no (unknown) (unknown) Stated complaint: (units (unknown) date) rt hip pain unknown) (unknown) (no (unknown) (unknown) This is an (units (unkn own) date) 82-year-old male unknown) with known dementia on Plavix daily who presents for (unknown) (no (unknown) (unknown) Time Seen by (units (u nknown) date) Provider: 10/01/22 unknown) 12:34 (unknown) (no (unknown) (unknown) XR hip w pel if (units (unknown) date) done RT 2V Stat unknown) (unknown) (no (unknown) (unknown) although he was (units (unknown) date) standing in the room unknown) and weight-bearing without issue when I (unknown) (no (unknown) (unknown) and below (units (unkn own) date) unknown) (unknown) (no (unknown) (unknown) arrived. Patient (units (unknown) date) denies any chest unknown) pain, shortness of breath, no nausea or (unknown) (no (unknown) (unknown) conjunctival (units (u nknown) date) pallor. Throat is unknown) clear without any exudates, erythema, tonsillar (unknown) (no (unknown) (unknown) enlargement or (units (unknown) date) uvular deviation unknown) (unknown) (no (unknown) (unknown) falls or trauma per (unit s (unknown) date) EMS. unknown) (unknown) (no (unknown) (unknown) has clear speech (units (unknown) date) she does try to unknown) answer questions. Unable to give me a medical (unknown) (no (unknown) (unknown) history or prior (units (unknown) date) surgical history. unknown) Patient reportedly had right hip pain by EMS (unknown) (no (unknown) (unknown) in mild distress. (units (unknown) date) Patient generally unknown) cooperative and redirectable. (unknown) (no (unknown) (unknown) masses noted, no (units (unknown) date) hepatosplenomegaly unknown) (unknown) (no (unknown) (unknown) movements are (units ( unknown) date) intact, nares are unknown) clear, TMs are clear with no fluid, there is no (unknown) (no (unknown) (unknown) normal range of (units (unknown) date) motion. Muscle unknown) strength is 5/5 in upper and lower extremities. (unknown) (no (unknown) (unknown) pulses are equal in (unit s (unknown) date) upper and lower unknown) extremities (unknown) (no (unknown) (unknown) reported right hip (units (unknown) date) pain. Patient states unknown) no issues to myself currently he can (unknown) (no (unknown) (unknown) symmetrically (units ( unknown) date) unknown) (unknown) (no (unknown) (unknown) tell me his name, (units (unknown) date) he does not know unknown) exactly where he is or why he is here. He (unknown) (no (unknown) (unknown) vomiting no (units (un known) date) diarrhea unknown) constipation or other GI or urinary symptoms. No reported Result panel 81 (unknown) (no (unknown) (unknown) (no value) (units (unk nown) date) unknown) (unknown) (no (unknown) (unknown) 10/01/22 12:39 (units (unknown) date) unknown) (unknown) (no (unknown) (unknown) 10/01/22 12:45 (units (unknown) date) unknown) (unknown) (no (unknown) (unknown) 10/01/22 (units (unkno wn) date) unknown) (unknown) (no (unknown) (unknown) [id number] (units (unkno wn) date) unknown) (unknown) (no (unknown) (unknown) 1. Mild symmetric (units (unknown) date) hip joint unknown) degeneration. (unknown) (no (unknown) (unknown) [address] (units (unknown) date) unknown) (unknown) (no (unknown) (unknown) 12:47 10/01/22 (units (unknown) date) unknown) (unknown) (no (unknown) (unknown) 13:02 (units (unkno wn) date) unknown) (unknown) (no (unknown) (unknown) 2. No acute (units (un known) date) fractures.? unknown) (unknown) (no (unknown) (unknown) ? (units (unkno wn) date) unknown) (unknown) (no (unknown) (unknown) ABD:bowel sounds (units (unknown) date) normal, soft, unknown) non-tender, no guarding, rebound, rigidity, no (unknown) (no (unknown) (unknown) Accession Number: (units (unknown) date) [id number] ?? unknown) (unknown) (no (unknown) (unknown) Acct:[id number] (units (unknown) date) unknown) (unknown) (no (unknown) (unknown) Age/Sex: 82 / M (units (unknown) date) unknown) (unknown) (no (unknown) (unknown) Allergies (units (unkn own) date) unknown) (unknown) (no (unknown) (unknown) Allergy/AdvReac (units (unknown) date) Type Severity unknown) Reaction Status Date / Time (unknown) (no (unknown) (unknown) [place] [address] (unit s (unknown) date) unknown) (unknown) (no (unknown) (unknown) Approved by: (units (u nknown) date) Sophie Rodriguez M.D. unknown) on 10/01/2022 at 12:16?? (unknown) (no (unknown) (unknown) Attestation: I (units (unknown) date) personally reviewed unknown) and interpreted this ECG as follows: (unknown) (no (unknown) (unknown) BACK: No cervical, (units (unknown) date) thoracic or lumbar unknown) vertebral point tenderness. Patient has (unknown) (no (unknown) (unknown) Bedside Urine (units ( unknown) date) Bilirubin - Negative unknown) (unknown) (no (unknown) (unknown) Bedside Urine (units ( unknown) date) Glucose Negative unknown) (unknown) (no (unknown) (unknown) Bedside Urine (units ( unknown) date) Ketone - Negative unknown) (unknown) (no (unknown) (unknown) Bedside Urine (units ( unknown) date) Leukocytes - unknown) Negative (unknown) (no (unknown) (unknown) Bedside Urine (units ( unknown) date) Nitrite - Negative unknown) (unknown) (no (unknown) (unknown) Bedside Urine (units ( unknown) date) Occult Blood - unknown) Negative (unknown) (no (unknown) (unknown) Bedside Urine (units ( unknown) date) Protein - Negative unknown) (unknown) (no (unknown) (unknown) Bedside Urine (units ( unknown) date) Urobilinogen - unknown) Negative (unknown) (no (unknown) (unknown) Bedside Urine pH (units (unknown) date) 6.0 unknown) (unknown) (no (unknown) (unknown) Blood Pressure (units (unknown) date) 146/68 H 10/01/22 unknown) 12:47 (unknown) (no (unknown) (unknown) Blood Pressure (units (unknown) date) 146/68 H unknown) (unknown) (no (unknown) (unknown) Bones:? No (units (unk nown) date) fractures or unknown) dislocations.? Pelvic ring appears intact.? No (unknown) (no (unknown) (unknown) CBC Auto Diff (units ( unknown) date) [Complete Blood unknown) Count AUTO DIFF] Stat (unknown) (no (unknown) (unknown) CMP [Comprehensive (units (unknown) date) Metabolic Panel] unknown) Stat (unknown) (no (unknown) (unknown) COMPARISON:? None. (units (unknown) date) unknown) (unknown) (no (unknown) (unknown) Chief complaint: (units (unknown) date) Extremity unknown) Problem,Nontraumatic (unknown) (no (unknown) (unknown) Course (units (unkno wn) date) unknown) (unknown) (no (unknown) (unknown) Covid-19 + FLU A/B (units (unknown) date) + RSV - PCR Stat unknown) (unknown) (no (unknown) (unknown) : 1940 (units (unknown) date) Acct:[id number] unknown) (unknown) (no (unknown) (unknown) : 1940 (units (unknown) date) unknown) (unknown) (no (unknown) (unknown) Date of Service: (units (unknown) date) 10/01/22 unknown) (unknown) (no (unknown) (unknown) Departure (units (unkn own) date) unknown) (unknown) (no (unknown) (unknown) Dictated by: (units (u nknown) date) Sophie Rodriguez M.D. unknown) on 10/01/2022 at 12:14 ? ? (unknown) (no (unknown) (unknown) Discharge Plan (units (unknown) date) unknown) (unknown) (no (unknown) (unknown) ECG Data (units (unkno wn) date) unknown) (unknown) (no (unknown) (unknown) ED Orders (units (unkn own) date) unknown) (unknown) (no (unknown) (unknown) ER Physician: (units ( unknown) date) Ana Lilia Christensen D.O. unknown) (unknown) (no (unknown) (unknown) Emergency Report (units (unknown) date) unknown) (unknown) (no (unknown) (unknown) Esterase (units (unkno wn) date) unknown) (unknown) (no (unknown) (unknown) Exam Narrative: (units (unknown) date) unknown) (unknown) (no (unknown) (unknown) Exam (units (unkno wn) date) unknown) (unknown) (no (unknown) (unknown) Extremity x-ray #1: (unit s (unknown) date) unknown) (unknown) (no (unknown) (unknown) FINDINGS:? (units (unk nown) date) unknown) (unknown) (no (unknown) (unknown) GEN: Elderly (units (u nknown) date) appearing male, unknown) alert and oriented to self, patient appears to be (unknown) (no (unknown) (unknown) :No CVA (units (unkn own) date) tenderness unknown) (unknown) (no (unknown) (unknown) General (units (unkno wn) date) unknown) (unknown) (no (unknown) (unknown) HEART: Regular rate (unit s (unknown) date) and rhythm without unknown) murmur, clicks, rubs. No carotid bruits, (unknown) (no (unknown) (unknown) HEENT: Atraumatic, (units (unknown) date) pupils are equal unknown) round reactive to light, extraocular (unknown) (no (unknown) (unknown) HPI - General Adult (unit s (unknown) date) unknown) (unknown) (no (unknown) (unknown) HPI narrative: (units (unknown) date) unknown) (unknown) (no (unknown) (unknown) History of Present (units (unknown) date) Illness unknown) (unknown) (no (unknown) (unknown) IMPRESSION:? (units (u nknown) date) unknown) (unknown) (no (unknown) (unknown) INDICATIONS:? (units ( unknown) date) reported right hip unknown) pain (unknown) (no (unknown) (unknown) INGREDIENT: NO (units (unknown) date) KNOWN - NO Allergy unknown) Unknown Uncoded 12/20/17 13:10 (unknown) (no (unknown) (unknown) Imaging Data (units (u nknown) date) unknown) (unknown) (no (unknown) (unknown) Initial Vital Signs (unit s (unknown) date) unknown) (unknown) (no (unknown) (unknown) Initial Vital (units ( unknown) date) Signs: unknown) (unknown) (no (unknown) (unknown) [facility] (units (unknown) date) [address] [place] [address] unknown) [place] [address] (unknown) (no (unknown) (unknown) [facility] (units (unknown) date) unknown) (unknown) (no (unknown) (unknown) KNOWN DRUG ALLERGY (units (unknown) date) unknown) (unknown) (no (unknown) (unknown) LUNGS:Lungs clear (units (unknown) date) to auscultation, no unknown) wheezes, rales, crackles, chest moves (unknown) (no (unknown) (unknown) Lab Data (units (unkno wn) date) unknown) (unknown) (no (unknown) (unknown) Labs: (units (unkno wn) date) unknown) (unknown) (no (unknown) (unknown) Limitations: other (units (unknown) date) (dementia) unknown) (unknown) (no (unknown) (unknown) Lipase Stat (units (un known) date) unknown) (unknown) (no (unknown) (unknown) Loc: ED (units (unkno wn) date) unknown) (unknown) (no (unknown) (unknown) MR#: [id number] (units (unknown) date) unknown) (unknown) (no (unknown) (unknown) MSCL: Non-tender (units (unknown) date) all 4 extremities, unknown) full range of motion, normal gait (unknown) (no (unknown) (unknown) Medical Decision (units (unknown) date) Making unknown) (unknown) (no (unknown) (unknown) Miscellaneous,[place] (unit s (unknown) date) MD brooklynn [Primary Care unknown) Provider] (unknown) (no (unknown) (unknown) Mode of arrival: (units (unknown) date) EMS unknown) (unknown) (no (unknown) (unknown) NEURO:CN 2-12 (units ( unknown) date) intact, sensation unknown) normal, clear speech. (unknown) (no (unknown) (unknown) Narrative (units (unkn own) date) unknown) (unknown) (no (unknown) (unknown) No edema bilateral (units (unknown) date) lower extremities. unknown) Patient weight bears without issue. (unknown) (no (unknown) (unknown) Ordered: (units (unkno wn) date) unknown) (unknown) (no (unknown) (unknown) Ordering Provider: (units (unknown) date) Ana Lilia Christensen D.O. unknown) (unknown) (no (unknown) (unknown) Orders (units (unkno wn) date) unknown) (unknown) (no (unknown) (unknown) Oxygen Delivery (units (unknown) date) Method 10/01/22 unknown) 12:47 (unknown) (no (unknown) (unknown) Oxygen Delivery (units (unknown) date) Method Room Air unknown) (unknown) (no (unknown) (unknown) PROCEDURE:? XR HIP (units (unknown) date) W PEL IF DONE RT 2V unknown) (unknown) (no (unknown) (unknown) Patient: (units (unkno wn) date) Jazmin Calderon MR#: unknown) M00 (unknown) (no (unknown) (unknown) Patient: (units (unkno wn) date) Jazmin Calderon unknown) (unknown) (no (unknown) (unknown) Point of care (units ( unknown) date) testing: unknown) (unknown) (no (unknown) (unknown) Procedure: XR hip w (unit s (unknown) date) pel if done RT 2V unknown) (unknown) (no (unknown) (unknown) Pulse Oximetry 96 (units (unknown) date) 10/01/22 12:47 unknown) (unknown) (no (unknown) (unknown) Pulse Oximetry 96 (units (unknown) date) 100 unknown) (unknown) (no (unknown) (unknown) Pulse Rate 92 H (units (unknown) date) 10/01/22 12:47 unknown) (unknown) (no (unknown) (unknown) Pulse Rate 92 H 80 (units (unknown) date) unknown) (unknown) (no (unknown) (unknown) ROS Unobtainable: (units (unknown) date) All systems reviewed unknown) + are unremarkable except as noted in HPI (unknown) (no (unknown) (unknown) Radiologist's (units ( unknown) date) Impression: unknown) (unknown) (no (unknown) (unknown) Referrals: (units (unk nown) date) unknown) (unknown) (no (unknown) (unknown) Related Data (units (u nknown) date) unknown) (unknown) (no (unknown) (unknown) Respiratory Rate 18 (unit s (unknown) date) 10/01/22 12:47 unknown) (unknown) (no (unknown) (unknown) Respiratory Rate 18 (unit s (unknown) date) unknown) (unknown) (no (unknown) (unknown) Review of Systems (units (unknown) date) unknown) (unknown) (no (unknown) (unknown) SKIN: No rash, (units (unknown) date) erythema, ecchymosis unknown) or other skin changes appreciated. (unknown) (no (unknown) (unknown) Sensation intact in (unit s (unknown) date) all 4 extremities. unknown) Patient has 2+ pulses upper and lower. (unknown) (no (unknown) (unknown) Signed By: (units (unk nown) date) unknown) (unknown) (no (unknown) (unknown) Signed (units (unkno wn) date) unknown) (unknown) (no (unknown) (unknown) Soft tissues:? The (units (unknown) date) visualized bowel gas unknown) pattern is normal.? Scattered surgical (unknown) (no (unknown) (unknown) Source: patient, (units (unknown) date) EMS and old records unknown) reviewed (unknown) (no (unknown) (unknown) Stated complaint: (units (unknown) date) rt hip pain unknown) (unknown) (no (unknown) (unknown) TECHNIQUE:? AP (units (unknown) date) pelvis with lateral unknown) view(s) of the right hip(s).? (unknown) (no (unknown) (unknown) Temperature 97.8 F (units (unknown) date) 10/01/22 12:47 unknown) (unknown) (no (unknown) (unknown) Temperature 97.8 F (units (unknown) date) unknown) (unknown) (no (unknown) (unknown) This is an (units (unkn own) date) 82-year-old male unknown) with known dementia on Plavix daily who presents for (unknown) (no (unknown) (unknown) Time Seen by (units (u nknown) date) Provider: 10/01/22 unknown) 12:34 (unknown) (no (unknown) (unknown) Urine Dip (units (unkn own) date) unknown) (unknown) (no (unknown) (unknown) Urine Specific (units (unknown) date) [place] 1.015 unknown) (unknown) (no (unknown) (unknown) Vital Signs - 8 hr (units (unknown) date) unknown) (unknown) (no (unknown) (unknown) Vital Signs (units (un known) date) unknown) (unknown) (no (unknown) (unknown) Vital signs: (units (u nknown) date) unknown) (unknown) (no (unknown) (unknown) XR hip w pel if (units (unknown) date) done RT 2V Stat unknown) (unknown) (no (unknown) (unknown) XRay Report (units (un known) date) unknown) (unknown) (no (unknown) (unknown) although he was (units (unknown) date) standing in the room unknown) and weight-bearing without issue when I (unknown) (no (unknown) (unknown) and below (units (unkn own) date) unknown) (unknown) (no (unknown) (unknown) arrived. Patient (units (unknown) date) denies any chest unknown) pain, shortness of breath, no nausea or (unknown) (no (unknown) (unknown) bilaterally. (units (u nknown) date) unknown) (unknown) (no (unknown) (unknown) calcification. (units (unknown) date) unknown) (unknown) (no (unknown) (unknown) changes (units (unkno wn) date) unknown) (unknown) (no (unknown) (unknown) clips.? No (units (unk nown) date) unknown) (unknown) (no (unknown) (unknown) conjunctival (units (u nknown) date) pallor. Throat is unknown) clear without any exudates, erythema, tonsillar (unknown) (no (unknown) (unknown) enlargement or (units (unknown) date) uvular deviation unknown) (unknown) (no (unknown) (unknown) falls or trauma per (unit s (unknown) date) EMS. unknown) (unknown) (no (unknown) (unknown) has clear speech (units (unknown) date) she does try to unknown) answer questions. Unable to give me a medical (unknown) (no (unknown) (unknown) history or prior (units (unknown) date) surgical history. unknown) Patient reportedly had right hip pain by EMS (unknown) (no (unknown) (unknown) in mild distress. (units (unknown) date) Patient generally unknown) cooperative and redirectable. (unknown) (no (unknown) (unknown) lesions.? Mild (units (unknown) date) degenerative unknown) acetabular spurring and subcortical cystic cystic (unknown) (no (unknown) (unknown) masses noted, no (units (unknown) date) hepatosplenomegaly unknown) (unknown) (no (unknown) (unknown) movements are (units ( unknown) date) intact, nares are unknown) clear, TMs are clear with no fluid, there is no (unknown) (no (unknown) (unknown) normal range of (units (unknown) date) motion. Muscle unknown) strength is 5/5 in upper and lower extremities. (unknown) (no (unknown) (unknown) pulses are equal in (unit s (unknown) date) upper and lower unknown) extremities (unknown) (no (unknown) (unknown) reported right hip (units (unknown) date) pain. Patient states unknown) no issues to myself currently he can (unknown) (no (unknown) (unknown) suspicious bony (units (unknown) date) unknown) (unknown) (no (unknown) (unknown) suspicious soft (units (unknown) date) tissue unknown) calcifications.? Mild atherosclerotic arterial (unknown) (no (unknown) (unknown) symmetrically (units ( unknown) date) unknown) (unknown) (no (unknown) (unknown) tell me his name, (units (unknown) date) he does not know unknown) exactly where he is or why he is here. He (unknown) (no (unknown) (unknown) vomiting no (units (un known) date) diarrhea unknown) constipation or other GI or urinary symptoms. No reported Result panel 82 (unknown) (no date) (unknown) (unknown) 0.8 % (unkn own) (unknown) (no date) (unknown) (unknown) 1.1 % (unkn own) (unknown) (no date) (unknown) (unknown) 100 /ul (unkn own) (unknown) (no date) (unknown) (unknown) 100 /ul (unkn own) (unknown) (no date) (unknown) (unknown) 13.2 g/dl (unkn own) (unknown) (no date) (unknown) (unknown) 13.5 % (unkn own) (unknown) (no date) (unknown) (unknown) 14.0 % (unkn own) (unknown) (no date) (unknown) (unknown) 174 x10 3/ul (unkn own) (unknown) (no date) (unknown) (unknown) 31.4 pg (unkn own) (unknown) (no date) (unknown) (unknown) 34.3 % (unkn own) (unknown) (no date) (unknown) (unknown) 38.5 % (unkn own) (unknown) (no date) (unknown) (unknown) 4.21 x10 6/ul (unkn own) (unknown) (no date) (unknown) (unknown) 500 /ul (unkn own) (unknown) (no date) (unknown) (unknown) 5100 /ul (unkn own) (unknown) (no date) (unknown) (unknown) 6.7 x10 3/ul (unkn own) (unknown) (no date) (unknown) (unknown) 7.9 % (unkn own) (unknown) (no date) (unknown) (unknown) 76.7 % (unkn own) (unknown) (no date) (unknown) (unknown) 900 /ul (unkn own) (unknown) (no date) (unknown) (unknown) 91.4 fl (unkn own) Result panel 83 (unknown) (no date) (unknown) (unknown) Flu A (units (unkn own) NEGATIVE unknown) (unknown) (no date) (unknown) (unknown) Flu B (units (unkn own) NEGATIVE unknown) (unknown) (no date) (unknown) (unknown) Negative (units (unkn own) unknown) (unknown) (no date) (unknown) (unknown) Negative (units (unkn own) unknown) Result panel 84 (unknown) (no (unknown) (unknown) (no value) (units (unk nown) date) unknown) (unknown) (no (unknown) (unknown) > 60 ml/min (unkno wn) date) (unknown) (no (unknown) (unknown) > 60 ml/min (unkno wn) date) (unknown) (no (unknown) (unknown) 0.3 mg/dl (unkno wn) date) (unknown) (no (unknown) (unknown) 0.75 mg/dl (unkno wn) date) (unknown) (no (unknown) (unknown) 10/01/22 10/01/22 (units (unknown) date) Range/Units unknown) (unknown) (no (unknown) (unknown) 10/01/22 12:39 (units (unknown) date) unknown) (unknown) (no (unknown) (unknown) 10/01/22 12:43 (units (unknown) date) unknown) (unknown) (no (unknown) (unknown) 10/01/22 12:45 (units (unknown) date) unknown) (unknown) (no (unknown) (unknown) 10/01/22 13:20 (units (unknown) date) unknown) (unknown) (no (unknown) (unknown) 10/01/22 (units (unkno wn) date) unknown) (unknown) (no (unknown) (unknown) [id number] (units (unkno wn) date) unknown) (unknown) (no (unknown) (unknown) 1. Mild symmetric (units (unknown) date) hip joint unknown) degeneration. (unknown) (no (unknown) (unknown) 1.2 (units (unkno wn) date) unknown) (unknown) (no (unknown) (unknown) 100 mg/dl (unkno wn) date) (unknown) (no (unknown) (unknown) 100 mg/dl (unkno wn) date) (unknown) (no (unknown) (unknown) 106 u/l (unkno wn) date) (unknown) (no (unknown) (unknown) [address] [place] (units (unknown) date) unknown) (unknown) (no (unknown) (unknown) 12:45 13:20 (units (un known) date) unknown) (unknown) (no (unknown) (unknown) 12:47 10/01/22 (units (unknown) date) unknown) (unknown) (no (unknown) (unknown) 137 mmol/l (unkno wn) date) (unknown) (no (unknown) (unknown) 13:02 (units (unkno wn) date) unknown) (unknown) (no (unknown) (unknown) 13:26 10/01/22 (units (unknown) date) unknown) (unknown) (no (unknown) (unknown) 17 mg/dl (unkno wn) date) (unknown) (no (unknown) (unknown) 19 iu/l (unkno wn) date) (unknown) (no (unknown) (unknown) 2. No acute (units (un known) date) fractures.? unknown) (unknown) (no (unknown) (unknown) 20 iu/l (unkno wn) date) (unknown) (no (unknown) (unknown) 22.7 (units (unkno wn) date) unknown) (unknown) (no (unknown) (unknown) 24 mmol/l (unkno wn) date) (unknown) (no (unknown) (unknown) 3.4 g/dl (unkno wn) date) (unknown) (no (unknown) (unknown) 3.8 mmol/l (unkno wn) date) (unknown) (no (unknown) (unknown) 4.0 g/dl (unkno wn) date) (unknown) (no (unknown) (unknown) 7.4 g/dl (unkno wn) date) (unknown) (no (unknown) (unknown) 8.8 mg/dl (unkno wn) date) (unknown) (no (unknown) (unknown) 86 u/l (unkno wn) date) (unknown) (no (unknown) (unknown) 99 mmol/l (unkno wn) date) (unknown) (no (unknown) (unknown) ? (units (unkno wn) date) unknown) (unknown) (no (unknown) (unknown) ABD:bowel sounds (units (unknown) date) normal, soft, unknown) non-tender, no guarding, rebound, rigidity, no (unknown) (no (unknown) (unknown) Accession Number: (units (unknown) date) [id number] ?? unknown) (unknown) (no (unknown) (unknown) Acct:[id number] (units (unknown) date) unknown) (unknown) (no (unknown) (unknown) Activity (units (unkno wn) date) Restrictions/Additio unknown) nal Instructions: (unknown) (no (unknown) (unknown) Age/Sex: 82 / M (units (unknown) date) unknown) (unknown) (no (unknown) (unknown) Allergies (units (unkn own) date) unknown) (unknown) (no (unknown) (unknown) Allergy/AdvReac (units (unknown) date) Type Severity unknown) Reaction Status Date / Time (unknown) (no (unknown) (unknown) [place] [address] (unit s (unknown) date) unknown) (unknown) (no (unknown) (unknown) Anemia (units (unkno wn) date) unknown) (unknown) (no (unknown) (unknown) Approved by: (units (u nknown) date) Sophie Rodriguez M.D. unknown) on 10/01/2022 at 12:16?? (unknown) (no (unknown) (unknown) Attestation: I (units (unknown) date) personally reviewed unknown) and interpreted this ECG as follows: (unknown) (no (unknown) (unknown) BACK: No cervical, (units (unknown) date) thoracic or lumbar unknown) vertebral point tenderness. Patient has (unknown) (no (unknown) (unknown) Baso # (Auto) 100 (units (unknown) date) (0-100) /uL unknown) (unknown) (no (unknown) (unknown) Baso % (Auto) 0.8 (units (unknown) date) (0-2) % unknown) (unknown) (no (unknown) (unknown) Bedside Urine (units ( unknown) date) Bilirubin - Negative unknown) (unknown) (no (unknown) (unknown) Bedside Urine (units ( unknown) date) Glucose Negative unknown) (unknown) (no (unknown) (unknown) Bedside Urine (units ( unknown) date) Ketone - Negative unknown) (unknown) (no (unknown) (unknown) Bedside Urine (units ( unknown) date) Leukocytes - unknown) Negative (unknown) (no (unknown) (unknown) Bedside Urine (units ( unknown) date) Nitrite - Negative unknown) (unknown) (no (unknown) (unknown) Bedside Urine (units ( unknown) date) Occult Blood - unknown) Negative (unknown) (no (unknown) (unknown) Bedside Urine (units ( unknown) date) Protein - Negative unknown) (unknown) (no (unknown) (unknown) Bedside Urine (units ( unknown) date) Urobilinogen - unknown) Negative (unknown) (no (unknown) (unknown) Bedside Urine pH (units (unknown) date) 6.0 unknown) (unknown) (no (unknown) (unknown) Blood Pressure (units (unknown) date) 146/68 H 10/01/22 unknown) 12:47 (unknown) (no (unknown) (unknown) Blood Pressure (units (unknown) date) 146/68 H unknown) (unknown) (no (unknown) (unknown) Bones:? No (units (unk nown) date) fractures or unknown) dislocations.? Pelvic ring appears intact.? No (unknown) (no (unknown) (unknown) CBC Auto Diff (units ( unknown) date) [Complete Blood unknown) Count AUTO DIFF] Stat (unknown) (no (unknown) (unknown) CMP [Comprehensive (units (unknown) date) Metabolic Panel] unknown) Stat (unknown) (no (unknown) (unknown) COMPARISON:? None. (units (unknown) date) unknown) (unknown) (no (unknown) (unknown) COVID/influenza RSV (unit s (unknown) date) negative. He has unknown) some mild anemia, LFTs, renal function, (unknown) (no (unknown) (unknown) Chief complaint: (units (unknown) date) Extremity unknown) Problem,Nontraumatic (unknown) (no (unknown) (unknown) Clinical (units (unkno wn) date) Impression: unknown) (unknown) (no (unknown) (unknown) Course (units (unkno wn) date) unknown) (unknown) (no (unknown) (unknown) Covid-19 + FLU A/B (units (unknown) date) + RSV - PCR Stat unknown) (unknown) (no (unknown) (unknown) : 1940 (units (unknown) date) Acct:[id number] unknown) (unknown) (no (unknown) (unknown) : 1940 (units (unknown) date) unknown) (unknown) (no (unknown) (unknown) Date of Service: (units (unknown) date) 10/01/22 unknown) (unknown) (no (unknown) (unknown) Departure (units (unkn own) date) unknown) (unknown) (no (unknown) (unknown) Dictated by: (units (u nknown) date) Sophie Rodriguez M.D. unknown) on 10/01/2022 at 12:14 ? ? 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 unknown) (unknown) (no (unknown) (unknown) Emergency Report (units (unknown) date) unknown) (unknown) (no (unknown) (unknown) Eos # (Auto) 100 (units (unknown) date) (0-450) /uL unknown) (unknown) (no (unknown) (unknown) Eos % (Auto) 1.1 L (units (unknown) date) (2-4) % unknown) (unknown) (no (unknown) (unknown) Esterase (units (unkno wn) date) unknown) (unknown) (no (unknown) (unknown) Exam Narrative: (units (unknown) date) unknown) (unknown) (no (unknown) (unknown) Exam (units (unkno wn) date) unknown) (unknown) (no (unknown) (unknown) Extremity x-ray #1: (unit s (unknown) date) unknown) (unknown) (no (unknown) (unknown) FINDINGS:? (units (unk nown) date) unknown) (unknown) (no (unknown) (unknown) GEN: Elderly (units (u nknown) date) appearing male, unknown) alert and oriented to self, patient appears to be (unknown) (no (unknown) (unknown) :No CVA (units (unkn own) date) tenderness unknown) (unknown) (no (unknown) (unknown) General (units (unkno wn) date) unknown) (unknown) (no (unknown) (unknown) HEART: Regular rate (unit s (unknown) date) and rhythm without unknown) murmur, clicks, rubs. No carotid bruits, (unknown) (no (unknown) (unknown) HEENT: Atraumatic, (units (unknown) date) pupils are equal unknown) round reactive to light, extraocular (unknown) (no (unknown) (unknown) HPI - General Adult (unit s (unknown) date) unknown) (unknown) (no (unknown) (unknown) HPI narrative: (units (unknown) date) unknown) (unknown) (no (unknown) (unknown) Hct 38.5 L (41-53) (units (unknown) date) % unknown) (unknown) (no (unknown) (unknown) Hgb 13.2 L (units (unk nown) date) (13.5-17.5) g/dL unknown) (unknown) (no (unknown) (unknown) History of Present (units (unknown) date) Illness unknown) (unknown) (no (unknown) (unknown) IMPRESSION:? (units (u nknown) date) unknown) (unknown) (no (unknown) (unknown) INDICATIONS:? (units ( unknown) date) reported right hip unknown) pain (unknown) (no (unknown) (unknown) INGREDIENT: NO (units (unknown) date) KNOWN - NO Allergy unknown) Unknown Uncoded 12/20/17 13:10 (unknown) (no (unknown) (unknown) Imaging Data (units (u nknown) date) unknown) (unknown) (no (unknown) (unknown) Imaging of your (units (unknown) date) right hip is unknown) negative and normal has been ambulating and weight (unknown) (no (unknown) (unknown) Influenza A (units (un known) date) (RT-PCR) Flu a unknown) negative (NEGATIVE) (unknown) (no (unknown) (unknown) Influenza B (units (un known) date) (RT-PCR) Flu b unknown) negative (NEGATIVE) (unknown) (no (unknown) (unknown) Initial Vital Signs (unit s (unknown) date) unknown) (unknown) (no (unknown) (unknown) Initial Vital (units ( unknown) date) Signs: unknown) (unknown) (no (unknown) (unknown) Interpretation: (units (unknown) date) unknown) (unknown) (no (unknown) (unknown) [facility] (units (unknown) date) [address] [place] [address] unknown) [place] [address] (unknown) (no (unknown) (unknown) [facility] (units (unknown) date) unknown) (unknown) (no (unknown) (unknown) KNOWN DRUG ALLERGY (units (unknown) date) unknown) (unknown) (no (unknown) (unknown) LUNGS:Lungs clear (units (unknown) date) to auscultation, no unknown) wheezes, rales, crackles, chest moves (unknown) (no (unknown) (unknown) Lab Data (units (unkno wn) date) unknown) (unknown) (no (unknown) (unknown) Lab Results (units (un known) date) unknown) (unknown) (no (unknown) (unknown) Labs: (units (unkno wn) date) unknown) (unknown) (no (unknown) (unknown) Limitations: other (units (unknown) date) (dementia) unknown) (unknown) (no (unknown) (unknown) Lipase Stat (units (un known) date) unknown) (unknown) (no (unknown) (unknown) Loc: ED (units (unkno wn) date) unknown) (unknown) (no (unknown) (unknown) Lymph # (Auto) 900 (units (unknown) date) L (8430-4903) /uL unknown) (unknown) (no (unknown) (unknown) Lymph % (Auto) 13.5 (unit s (unknown) date) L (25-40) % unknown) (unknown) (no (unknown) (unknown) [facility] 31.4 (26-34) PG (unit s (unknown) date) unknown) (unknown) (no (unknown) (unknown) MCHC 34.3 (30-36) % (unit s (unknown) date) unknown) (unknown) (no (unknown) (unknown) MCV 91.4 (80-100) (units (unknown) date) fL unknown) (unknown) (no (unknown) (unknown) MDM Narrative (units ( unknown) date) unknown) (unknown) (no (unknown) (unknown) MR#: [id number] (units (unknown) date) unknown) (unknown) (no (unknown) (unknown) MSCL: Non-tender (units (unknown) date) all 4 extremities, unknown) full range of motion, normal gait (unknown) (no (unknown) (unknown) Medical Decision (units (unknown) date) Making unknown) (unknown) (no (unknown) (unknown) Medical decision (units (unknown) date) making narrative: unknown) (unknown) (no (unknown) (unknown) Miscellaneous,[place] (unit s (unknown) date) rMD [Primary Care unknown) Provider] (unknown) (no (unknown) (unknown) Mode of arrival: (units (unknown) date) EMS unknown) (unknown) (no (unknown) (unknown) [place] # (Auto) 500 (units (unknown) date) (0-900) /uL unknown) (unknown) (no (unknown) (unknown) [place] % (Auto) 7.9 (units (unknown) date) (3-14) % unknown) (unknown) (no (unknown) (unknown) NEURO:CN 2-12 (units ( unknown) date) intact, sensation unknown) normal, clear speech. (unknown) (no (unknown) (unknown) Narrative (units (unkn own) date) unknown) (unknown) (no (unknown) (unknown) Neut # (Auto) 5100 (units (unknown) date) (1242-1270) /uL unknown) (unknown) (no (unknown) (unknown) Neut % (Auto) 76.7 (units (unknown) date) H (50-75) % unknown) (unknown) (no (unknown) (unknown) No edema bilateral (units (unknown) date) lower extremities. unknown) Patient weight bears without issue. (unknown) (no (unknown) (unknown) Ordered: (units (unkno wn) date) unknown) (unknown) (no (unknown) (unknown) Ordering Provider: (units (unknown) date) Ana Lilia Christensen D.O. unknown) (unknown) (no (unknown) (unknown) Orders (units (unkno wn) date) unknown) (unknown) (no (unknown) (unknown) Oxygen Delivery (units (unknown) date) Method 10/01/22 unknown) 12:47 (unknown) (no (unknown) (unknown) Oxygen Delivery (units (unknown) date) Method Room Air unknown) (unknown) (no (unknown) (unknown) PROCEDURE:? XR HIP (units (unknown) date) W PEL IF DONE RT 2V unknown) (unknown) (no (unknown) (unknown) Patient: (units (unkno wn) date) Jazmin Calderon MR#: unknown) M00 (unknown) (no (unknown) (unknown) Patient: (units (unkno wn) date) Jazmin Calderon unknown) (unknown) (no (unknown) (unknown) Please return for (units (unknown) date) new or concerning unknown) changes. (unknown) (no (unknown) (unknown) Plt Count 174 (units ( unknown) date) (150-400) X103/uL unknown) (unknown) (no (unknown) (unknown) Point of care (units ( unknown) date) testing: unknown) (unknown) (no (unknown) (unknown) Prior ECG tracings: (unit s (unknown) date) not available for unknown) review (unknown) (no (unknown) (unknown) Procedure: XR hip w (unit s (unknown) date) pel if done RT 2V unknown) (unknown) (no (unknown) (unknown) Pulse Oximetry 96 (units (unknown) date) 10/01/22 12:47 unknown) (unknown) (no (unknown) (unknown) Pulse Oximetry 96 (units (unknown) date) 100 unknown) (unknown) (no (unknown) (unknown) Pulse Rate 92 H (units (unknown) date) 10/01/22 12:47 unknown) (unknown) (no (unknown) (unknown) Pulse Rate 92 H 80 (units (unknown) date) unknown) (unknown) (no (unknown) (unknown) Pulse Rate [Right (units (unknown) date) Dorsalis Pedis] 60 unknown) (unknown) (no (unknown) (unknown) RBC 4.21 L (units (unk nown) date) (4.5-5.9) X106/uL unknown) (unknown) (no (unknown) (unknown) RDW 14.0 (units (unkno wn) date) (11.6-14.8) % unknown) (unknown) (no (unknown) (unknown) ROS Unobtainable: (units (unknown) date) All systems reviewed unknown) + are unremarkable except as noted in HPI (unknown) (no (unknown) (unknown) RSV (PCR) Negative (units (unknown) date) (Negative) unknown) (unknown) (no (unknown) (unknown) Radiologist's (units ( unknown) date) Impression: unknown) (unknown) (no (unknown) (unknown) Referrals: (units (unk nown) date) unknown) (unknown) (no (unknown) (unknown) Related Data (units (u nknown) date) unknown) (unknown) (no (unknown) (unknown) Respiratory Rate 18 (unit s (unknown) date) 10/01/22 12:47 unknown) (unknown) (no (unknown) (unknown) Respiratory Rate 18 (unit s (unknown) date) unknown) (unknown) (no (unknown) (unknown) Result diagrams: (units (unknown) date) unknown) (unknown) (no (unknown) (unknown) Review of Systems (units (unknown) date) unknown) (unknown) (no (unknown) (unknown) SARS-CoV-2 (PCR) (units (unknown) date) Negative (Negative) unknown) (unknown) (no (unknown) (unknown) SKIN: No rash, (units (unknown) date) erythema, ecchymosis unknown) or other skin changes appreciated. (unknown) (no (unknown) (unknown) Sensation intact in (unit s (unknown) date) all 4 extremities. unknown) Patient has 2+ pulses upper and lower. (unknown) (no (unknown) (unknown) Signed By: (units (unk nown) date) unknown) (unknown) (no (unknown) (unknown) Signed (units (unkno wn) date) unknown) (unknown) (no (unknown) (unknown) Sinus rhythm (units (u nknown) date) occasional PVC, unknown) right bundle branch and left anterior fascicular (unknown) (no (unknown) (unknown) Soft tissues:? The (units (unknown) date) visualized bowel gas unknown) pattern is normal.? Scattered surgical (unknown) (no (unknown) (unknown) Source: patient, (units (unknown) date) EMS and old records unknown) reviewed (unknown) (no (unknown) (unknown) Stated complaint: (units (unknown) date) rt hip pain unknown) (unknown) (no (unknown) (unknown) TECHNIQUE:? AP (units (unknown) date) pelvis with lateral unknown) view(s) of the right hip(s).? (unknown) (no (unknown) (unknown) Temperature 97.8 F (units (unknown) date) 10/01/22 12:47 unknown) (unknown) (no (unknown) (unknown) Temperature 97.8 F (units (unknown) date) unknown) (unknown) (no (unknown) (unknown) This is a (units (unkn own) date) 82-year-old male unknown) sent for possible right hip pain although patient (unknown) (no (unknown) (unknown) This is an (units (unkn own) date) 82-year-old male unknown) with known dementia on Plavix daily who presents for (unknown) (no (unknown) (unknown) Time Seen by (units (u nknown) date) Provider: 10/01/22 unknown) 12:34 (unknown) (no (unknown) (unknown) Urine Dip (units (unkn own) date) unknown) (unknown) (no (unknown) (unknown) Urine Specific (units (unknown) date) [place] 1.015 unknown) (unknown) (no (unknown) (unknown) Urine is negative (units (unknown) date) for any acute unknown) changes. (unknown) (no (unknown) (unknown) Vital Signs - 8 hr (units (unknown) date) unknown) (unknown) (no (unknown) (unknown) Vital Signs (units (un known) date) unknown) (unknown) (no (unknown) (unknown) Vital signs: (units (u nknown) date) unknown) (unknown) (no (unknown) (unknown) WBC 6.7 (4.5-11.0) (units (unknown) date) X103/uL unknown) (unknown) (no (unknown) (unknown) XR hip w pel if (units (unknown) date) done RT 2V Stat unknown) (unknown) (no (unknown) (unknown) XRay Report (units (un known) date) unknown) (unknown) (no (unknown) (unknown) You have a mild (units (unknown) date) anemia today on her unknown) labs this may be your baseline do not have (unknown) (no (unknown) (unknown) [Embedded Image Not (unit s (unknown) date) Available] unknown) (unknown) (no (unknown) (unknown) although he was (units (unknown) date) standing in the room unknown) and weight-bearing without issue when I (unknown) (no (unknown) (unknown) and below (units (unkn own) date) unknown) (unknown) (no (unknown) (unknown) any priors for (units (unknown) date) comparison. unknown) (unknown) (no (unknown) (unknown) arrived. Patient (units (unknown) date) denies any chest unknown) pain, shortness of breath, no nausea or (unknown) (no (unknown) (unknown) bearing without any (unit s (unknown) date) issue and is unknown) nontender on examination. (unknown) (no (unknown) (unknown) bilaterally. (units (u nknown) date) unknown) (unknown) (no (unknown) (unknown) block. Rate 80 MD (units (unknown) date) 182 QRS of 138 QTC unknown) of 468. No priors for comparison. (unknown) (no (unknown) (unknown) calcification. (units (unknown) date) unknown) (unknown) (no (unknown) (unknown) changes (units (unkno wn) date) unknown) (unknown) (no (unknown) (unknown) clips.? No (units (unk nown) date) unknown) (unknown) (no (unknown) (unknown) complaints (units (unk nown) date) currently although unknown) he does have dementia vitals appear appropriate, (unknown) (no (unknown) (unknown) conjunctival (units (u nknown) date) pallor. Throat is unknown) clear without any exudates, erythema, tonsillar (unknown) (no (unknown) (unknown) electrolytes (units (u nknown) date) unknown) (unknown) (no (unknown) (unknown) enlargement or (units (unknown) date) uvular deviation unknown) (unknown) (no (unknown) (unknown) falls or trauma per (unit s (unknown) date) EMS. unknown) (unknown) (no (unknown) (unknown) has clear speech (units (unknown) date) she does try to unknown) answer questions. Unable to give me a medical (unknown) (no (unknown) (unknown) history or prior (units (unknown) date) surgical history. unknown) Patient reportedly had right hip pain by EMS (unknown) (no (unknown) (unknown) in mild distress. (units (unknown) date) Patient generally unknown) cooperative and redirectable. (unknown) (no (unknown) (unknown) lesions.? Mild (units (unknown) date) degenerative unknown) acetabular spurring and subcortical cystic cystic (unknown) (no (unknown) (unknown) masses noted, no (units (unknown) date) hepatosplenomegaly unknown) (unknown) (no (unknown) (unknown) mild arthritis but (units (unknown) date) no other changes. unknown) Patient himself does not have any other (unknown) (no (unknown) (unknown) movements are (units ( unknown) date) intact, nares are unknown) clear, TMs are clear with no fluid, there is no (unknown) (no (unknown) (unknown) normal range of (units (unknown) date) motion. Muscle unknown) strength is 5/5 in upper and lower extremities. (unknown) (no (unknown) (unknown) pulses are equal in (unit s (unknown) date) upper and lower unknown) extremities (unknown) (no (unknown) (unknown) reported right hip (units (unknown) date) pain. Patient states unknown) no issues to myself currently he can (unknown) (no (unknown) (unknown) standing moving (units (unknown) date) without any pain on unknown) palpation. X-ray was obtained shows some (unknown) (no (unknown) (unknown) suspicious bony (units (unknown) date) unknown) (unknown) (no (unknown) (unknown) suspicious soft (units (unknown) date) tissue unknown) calcifications.? Mild atherosclerotic arterial (unknown) (no (unknown) (unknown) symmetrically (units ( unknown) date) unknown) (unknown) (no (unknown) (unknown) tell me his name, (units (unknown) date) he does not know unknown) exactly where he is or why he is here. He (unknown) (no (unknown) (unknown) vomiting no (units (un known) date) diarrhea unknown) constipation or other GI or urinary symptoms. No reported Result panel 85 (unknown) (no (unknown) (unknown) (no value) (units (unk nown) date) unknown) (unknown) (no (unknown) (unknown) <Electronically (units (unknown) date) signed by Ana Lilia Stephens unknown) Cesar Christensen> (unknown) (no (unknown) (unknown) 10/01/22 10/01/22 (units (unknown) date) 10/01/22 Range/Units unknown) (unknown) (no (unknown) (unknown) 10/01/22 12:39 (units (unknown) date) unknown) (unknown) (no (unknown) (unknown) 10/01/22 12:43 (units (unknown) date) unknown) (unknown) (no (unknown) (unknown) 10/01/22 12:45 (units (unknown) date) unknown) (unknown) (no (unknown) (unknown) 10/01/22 13:20 (units (unknown) date) unknown) (unknown) (no (unknown) (unknown) 10/01/22 (units (unkno wn) date) unknown) (unknown) (no (unknown) (unknown) 10/02/22 0828 (units ( unknown) date) unknown) (unknown) (no (unknown) (unknown) [id number] (units (unkno wn) date) unknown) (unknown) (no (unknown) (unknown) 1. Mild symmetric (units (unknown) date) hip joint unknown) degeneration. (unknown) (no (unknown) (unknown) [address] [place] [address] (units (unknown) date) unknown) (unknown) (no (unknown) (unknown) 12:45 13:20 13:20 (units (unknown) date) unknown) (unknown) (no (unknown) (unknown) 12:47 10/01/22 (units (unknown) date) unknown) (unknown) (no (unknown) (unknown) 13:02 (units (unkno wn) date) unknown) (unknown) (no (unknown) (unknown) 13:26 10/01/22 (units (unknown) date) unknown) (unknown) (no (unknown) (unknown) 2. No acute (units (un known) date) fractures.? unknown) (unknown) (no (unknown) (unknown) ? (units (unkno wn) date) unknown) (unknown) (no (unknown) (unknown) ABD:bowel sounds (units (unknown) date) normal, soft, unknown) non-tender, no guarding, rebound, rigidity, no (unknown) (no (unknown) (unknown) ALT 19 (<50) IU/L (units (unknown) date) unknown) (unknown) (no (unknown) (unknown) AST 20 (17-59) IU/L (unit s (unknown) date) unknown) (unknown) (no (unknown) (unknown) Accession Number: (units (unknown) date) [id number] ?? unknown) (unknown) (no (unknown) (unknown) Acct:[id number] (units (unknown) date) unknown) (unknown) (no (unknown) (unknown) Activity (units (unkno wn) date) Restrictions/Additio unknown) nal Instructions: (unknown) (no (unknown) (unknown) Age/Sex: 82 / M (units (unknown) date) unknown) (unknown) (no (unknown) (unknown) Albumin 4.0 (units (un known) date) (3.5-5.0) g/dL unknown) (unknown) (no (unknown) (unknown) Albumin/Globulin (units (unknown) date) Ratio 1.2 (1.0-2.8) unknown) (unknown) (no (unknown) (unknown) Alkaline (units (unkno wn) date) Phosphatase 106 unknown) (38-126) U/L (unknown) (no (unknown) (unknown) Allergies (units (unkn own) date) unknown) (unknown) (no (unknown) (unknown) Allergy/AdvReac (units (unknown) date) Type Severity unknown) Reaction Status Date / Time (unknown) (no (unknown) (unknown) [place] [id number] (unit s (unknown) date) unknown) (unknown) (no (unknown) (unknown) Anemia (units (unkno wn) date) unknown) (unknown) (no (unknown) (unknown) Approved by: (units (u nknown) date) Sophie Rodriguez M.D. unknown) on 10/01/2022 at 12:16?? (unknown) (no (unknown) (unknown) Attestation: I (units (unknown) date) personally reviewed unknown) and interpreted this ECG as follows: (unknown) (no (unknown) (unknown) BACK: No cervical, (units (unknown) date) thoracic or lumbar unknown) vertebral point tenderness. Patient has (unknown) (no (unknown) (unknown) BUN 17 (9-20) mg/dL (unit s (unknown) date) unknown) (unknown) (no (unknown) (unknown) BUN/Creatinine (units (unknown) date) Ratio 22.7 H (6-22) unknown) (unknown) (no (unknown) (unknown) Baso # (Auto) 100 (units (unknown) date) (0-100) /uL unknown) (unknown) (no (unknown) (unknown) Baso % (Auto) 0.8 (units (unknown) date) (0-2) % unknown) (unknown) (no (unknown) (unknown) Bedside Urine (units ( unknown) date) Bilirubin - Negative unknown) (unknown) (no (unknown) (unknown) Bedside Urine (units ( unknown) date) Glucose Negative unknown) (unknown) (no (unknown) (unknown) Bedside Urine (units ( unknown) date) Ketone - Negative unknown) (unknown) (no (unknown) (unknown) Bedside Urine (units ( unknown) date) Leukocytes - unknown) Negative (unknown) (no (unknown) (unknown) Bedside Urine (units ( unknown) date) Nitrite - Negative unknown) (unknown) (no (unknown) (unknown) Bedside Urine (units ( unknown) date) Occult Blood - unknown) Negative (unknown) (no (unknown) (unknown) Bedside Urine (units ( unknown) date) Protein - Negative unknown) (unknown) (no (unknown) (unknown) Bedside Urine (units ( unknown) date) Urobilinogen - unknown) Negative (unknown) (no (unknown) (unknown) Bedside Urine pH (units (unknown) date) 6.0 unknown) (unknown) (no (unknown) (unknown) Blood Pressure (units (unknown) date) 146/68 H 10/01/22 unknown) 12:47 (unknown) (no (unknown) (unknown) Blood Pressure (units (unknown) date) 146/68 H unknown) (unknown) (no (unknown) (unknown) Bones:? No (units (unk nown) date) fractures or unknown) dislocations.? Pelvic ring appears intact.? No (unknown) (no (unknown) (unknown) CBC Auto Diff (units ( unknown) date) [Complete Blood unknown) Count AUTO DIFF] Stat (unknown) (no (unknown) (unknown) CMP [Comprehensive (units (unknown) date) Metabolic Panel] unknown) Stat (unknown) (no (unknown) (unknown) COMPARISON:? None. (units (unknown) date) unknown) (unknown) (no (unknown) (unknown) COVID/influenza RSV (unit s (unknown) date) negative. He has unknown) some mild anemia, LFTs, renal function, (unknown) (no (unknown) (unknown) Calcium 8.8 (units (un known) date) (8.4-10.2) mg/dL unknown) (unknown) (no (unknown) (unknown) Carbon Dioxide 24 (units (unknown) date) (22-32) mmol/L unknown) (unknown) (no (unknown) (unknown) Chief complaint: (units (unknown) date) Extremity unknown) Problem,Nontraumatic (unknown) (no (unknown) (unknown) Chloride 99 (units (un known) date) (98-107) mmol/L unknown) (unknown) (no (unknown) (unknown) Clinical (units (unkno wn) date) Impression: unknown) (unknown) (no (unknown) (unknown) Course (units (unkno wn) date) unknown) (unknown) (no (unknown) (unknown) Covid-19 + FLU A/B (units (unknown) date) + RSV - PCR Stat unknown) (unknown) (no (unknown) (unknown) Creatinine 0.75 (units (unknown) date) (0.66-1.25) mg/dL unknown) (unknown) (no (unknown) (unknown) : 1940 (units (unknown) date) Acct:[id number] unknown) (unknown) (no (unknown) (unknown) : 1940 (units (unknown) date) unknown) (unknown) (no (unknown) (unknown) Date of Service: (units (unknown) date) 10/01/22 unknown) (unknown) (no (unknown) (unknown) Departure (units (unkn own) date) unknown) (unknown) (no (unknown) (unknown) Dictated by: (units (u nknown) date) Sophie Rodriguez M.D. unknown) on 10/01/2022 at 12:14 ? ? 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 unknown) (unknown) (no (unknown) (unknown) Emergency Report (units (unknown) date) unknown) (unknown) (no (unknown) (unknown) Eos # (Auto) 100 (units (unknown) date) (0-450) /uL unknown) (unknown) (no (unknown) (unknown) Eos % (Auto) 1.1 L (units (unknown) date) (2-4) % unknown) (unknown) (no (unknown) (unknown) Esterase (units (unkno wn) date) unknown) (unknown) (no (unknown) (unknown) Estimated GFR > 60 (units (unknown) date) (>60) mL/min unknown) (unknown) (no (unknown) (unknown) Exam Narrative: (units (unknown) date) unknown) (unknown) (no (unknown) (unknown) Exam (units (unkno wn) date) unknown) (unknown) (no (unknown) (unknown) Extremity x-ray #1: (unit s (unknown) date) unknown) (unknown) (no (unknown) (unknown) FINDINGS:? (units (unk nown) date) unknown) (unknown) (no (unknown) (unknown) GEN: Elderly (units (u nknown) date) appearing male, unknown) alert and oriented to self, patient appears to be (unknown) (no (unknown) (unknown) :No CVA (units (unkn own) date) tenderness unknown) (unknown) (no (unknown) (unknown) General (units (unkno wn) date) unknown) (unknown) (no (unknown) (unknown) Globulin 3.4 (units (u nknown) date) (1.7-4.1) g/dL unknown) (unknown) (no (unknown) (unknown) Glucose 100 (units (un known) date) (80-110) mg/dL unknown) (unknown) (no (unknown) (unknown) HEART: Regular rate (unit s (unknown) date) and rhythm without unknown) murmur, clicks, rubs. No carotid bruits, (unknown) (no (unknown) (unknown) HEENT: Atraumatic, (units (unknown) date) pupils are equal unknown) round reactive to light, extraocular (unknown) (no (unknown) (unknown) HPI - General Adult (unit s (unknown) date) unknown) (unknown) (no (unknown) (unknown) HPI narrative: (units (unknown) date) unknown) (unknown) (no (unknown) (unknown) Hct 38.5 L (41-53) (units (unknown) date) % unknown) (unknown) (no (unknown) (unknown) Hgb 13.2 L (units (unk nown) date) (13.5-17.5) g/dL unknown) (unknown) (no (unknown) (unknown) History of Present (units (unknown) date) Illness unknown) (unknown) (no (unknown) (unknown) IMPRESSION:? (units (u nknown) date) unknown) (unknown) (no (unknown) (unknown) INDICATIONS:? (units ( unknown) date) reported right hip unknown) pain (unknown) (no (unknown) (unknown) INGREDIENT: NO (units (unknown) date) KNOWN - NO Allergy unknown) Unknown Uncoded 12/20/17 13:10 (unknown) (no (unknown) (unknown) Imaging Data (units (u nknown) date) unknown) (unknown) (no (unknown) (unknown) Imaging of your (units (unknown) date) right hip is unknown) negative and normal has been ambulating and weight (unknown) (no (unknown) (unknown) Influenza A (units (un known) date) (RT-PCR) Flu a unknown) negative (NEGATIVE) (unknown) (no (unknown) (unknown) Influenza B (units (un known) date) (RT-PCR) Flu b unknown) negative (NEGATIVE) (unknown) (no (unknown) (unknown) Initial Vital Signs (unit s (unknown) date) unknown) (unknown) (no (unknown) (unknown) Initial Vital (units ( unknown) date) Signs: unknown) (unknown) (no (unknown) (unknown) Interpretation: (units (unknown) date) unknown) (unknown) (no (unknown) (unknown) [facility] (units (unknown) date) [address] unknown) [place] [address] (unknown) (no (unknown) (unknown) [facility] (units (unknown) date) unknown) (unknown) (no (unknown) (unknown) KNOWN DRUG ALLERGY (units (unknown) date) unknown) (unknown) (no (unknown) (unknown) LUNGS:Lungs clear (units (unknown) date) to auscultation, no unknown) wheezes, rales, crackles, chest moves (unknown) (no (unknown) (unknown) Lab Data (units (unkno wn) date) unknown) (unknown) (no (unknown) (unknown) Lab Results (units (un known) date) unknown) (unknown) (no (unknown) (unknown) Labs: (units (unkno wn) date) unknown) (unknown) (no (unknown) (unknown) Limitations: other (units (unknown) date) (dementia) unknown) (unknown) (no (unknown) (unknown) Lipase 86 (23-300) (units (unknown) date) U/L unknown) (unknown) (no (unknown) (unknown) Lipase Stat (units (un known) date) unknown) (unknown) (no (unknown) (unknown) Loc: ED (units (unkno wn) date) unknown) (unknown) (no (unknown) (unknown) Lymph # (Auto) 900 (units (unknown) date) L (3577-7936) /uL unknown) (unknown) (no (unknown) (unknown) Lymph % (Auto) 13.5 (unit s (unknown) date) L (25-40) % unknown) (unknown) (no (unknown) (unknown) MCH 31.4 (26-34) PG (unit s (unknown) date) unknown) (unknown) (no (unknown) (unknown) MCHC 34.3 (30-36) % (unit s (unknown) date) unknown) (unknown) (no (unknown) (unknown) MCV 91.4 (80-100) (units (unknown) date) fL unknown) (unknown) (no (unknown) (unknown) MDM Narrative (units ( unknown) date) unknown) (unknown) (no (unknown) (unknown) MR#: [id number] (units (unknown) date) unknown) (unknown) (no (unknown) (unknown) MSCL: Non-tender (units (unknown) date) all 4 extremities, unknown) full range of motion, normal gait (unknown) (no (unknown) (unknown) Medical Decision (units (unknown) date) Making unknown) (unknown) (no (unknown) (unknown) Medical decision (units (unknown) date) making narrative: unknown) (unknown) (no (unknown) (unknown) Miscellaneous,[place] (unit s (unknown) date) rMD [Primary Care unknown) Provider] (unknown) (no (unknown) (unknown) Mode of arrival: (units (unknown) date) EMS unknown) (unknown) (no (unknown) (unknown) [place] # (Auto) 500 (units (unknown) date) (0-900) /uL unknown) (unknown) (no (unknown) (unknown) [place] % (Auto) 7.9 (units (unknown) date) (3-14) % unknown) (unknown) (no (unknown) (unknown) NEURO:CN 2-12 (units ( unknown) date) intact, sensation unknown) normal, clear speech. (unknown) (no (unknown) (unknown) Narrative (units (unkn own) date) unknown) (unknown) (no (unknown) (unknown) Neut # (Auto) 5100 (units (unknown) date) (1039-4736) /uL unknown) (unknown) (no (unknown) (unknown) Neut % (Auto) 76.7 (units (unknown) date) H (50-75) % unknown) (unknown) (no (unknown) (unknown) No edema bilateral (units (unknown) date) lower extremities. unknown) Patient weight bears without issue. (unknown) (no (unknown) (unknown) Ordered: (units (unkno wn) date) unknown) (unknown) (no (unknown) (unknown) Ordering Provider: (units (unknown) date) Ana Lilia Christensen D.O. unknown) (unknown) (no (unknown) (unknown) Orders (units (unkno wn) date) unknown) (unknown) (no (unknown) (unknown) Oxygen Delivery (units (unknown) date) Method 10/01/22 unknown) 12:47 (unknown) (no (unknown) (unknown) Oxygen Delivery (units (unknown) date) Method Room Air unknown) (unknown) (no (unknown) (unknown) PROCEDURE:? XR HIP (units (unknown) date) W PEL IF DONE RT 2V unknown) (unknown) (no (unknown) (unknown) Patient (units (unkno wn) date) Disposition: Home unknown) (unknown) (no (unknown) (unknown) Patient: (units (unkno wn) date) Jazmin Calderon MR#: unknown) M00 (unknown) (no (unknown) (unknown) Patient: (units (unkno wn) date) Jazmin Calderon unknown) (unknown) (no (unknown) (unknown) Please return for (units (unknown) date) new or concerning unknown) changes. (unknown) (no (unknown) (unknown) Plt Count 174 (units ( unknown) date) (150-400) X103/uL unknown) (unknown) (no (unknown) (unknown) Point of care (units ( unknown) date) testing: unknown) (unknown) (no (unknown) (unknown) Potassium 3.8 (units ( unknown) date) (3.4-5.1) mmol/L unknown) (unknown) (no (unknown) (unknown) Prior ECG tracings: (unit s (unknown) date) not available for unknown) review (unknown) (no (unknown) (unknown) Procedure: XR hip w (unit s (unknown) date) pel if done RT 2V unknown) (unknown) (no (unknown) (unknown) Pulse Oximetry 96 (units (unknown) date) 10/01/22 12:47 unknown) (unknown) (no (unknown) (unknown) Pulse Oximetry 96 (units (unknown) date) 100 unknown) (unknown) (no (unknown) (unknown) Pulse Rate 92 H (units (unknown) date) 10/01/22 12:47 unknown) (unknown) (no (unknown) (unknown) Pulse Rate 92 H 80 (units (unknown) date) unknown) (unknown) (no (unknown) (unknown) Pulse Rate [Right (units (unknown) date) Dorsalis Pedis] 60 unknown) (unknown) (no (unknown) (unknown) RBC 4.21 L (units (unk nown) date) (4.5-5.9) X106/uL unknown) (unknown) (no (unknown) (unknown) RDW 14.0 (units (unkno wn) date) (11.6-14.8) % unknown) (unknown) (no (unknown) (unknown) ROS Unobtainable: (units (unknown) date) All systems reviewed unknown) + are unremarkable except as noted in HPI (unknown) (no (unknown) (unknown) RSV (PCR) Negative (units (unknown) date) (Negative) unknown) (unknown) (no (unknown) (unknown) Radiologist's (units ( unknown) date) Impression: unknown) (unknown) (no (unknown) (unknown) Referrals: (units (unk nown) date) unknown) (unknown) (no (unknown) (unknown) Related Data (units (u nknown) date) unknown) (unknown) (no (unknown) (unknown) Respiratory Rate 18 (unit s (unknown) date) 10/01/22 12:47 unknown) (unknown) (no (unknown) (unknown) Respiratory Rate 18 (unit s (unknown) date) unknown) (unknown) (no (unknown) (unknown) Result diagrams: (units (unknown) date) unknown) (unknown) (no (unknown) (unknown) Review of Systems (units (unknown) date) unknown) (unknown) (no (unknown) (unknown) SARS-CoV-2 (PCR) (units (unknown) date) Negative (Negative) unknown) (unknown) (no (unknown) (unknown) SKIN: No rash, (units (unknown) date) erythema, ecchymosis unknown) or other skin changes appreciated. (unknown) (no (unknown) (unknown) Sensation intact in (unit s (unknown) date) all 4 extremities. unknown) Patient has 2+ pulses upper and lower. (unknown) (no (unknown) (unknown) Signed By: (units (unk nown) date) unknown) (unknown) (no (unknown) (unknown) Signed (units (unkno wn) date) unknown) (unknown) (no (unknown) (unknown) Sinus rhythm (units (u nknown) date) occasional PVC, unknown) right bundle branch and left anterior fascicular (unknown) (no (unknown) (unknown) Sodium 137 (units (unk nown) date) (137-145) mmol/L unknown) (unknown) (no (unknown) (unknown) Soft tissues:? The (units (unknown) date) visualized bowel gas unknown) pattern is normal.? Scattered surgical (unknown) (no (unknown) (unknown) Source: patient, (units (unknown) date) EMS and old records unknown) reviewed (unknown) (no (unknown) (unknown) Stand Alone Forms: (units (unknown) date) Patient Portal/API unknown) (unknown) (no (unknown) (unknown) Stated complaint: (units (unknown) date) rt hip pain unknown) (unknown) (no (unknown) (unknown) TECHNIQUE:? AP (units (unknown) date) pelvis with lateral unknown) view(s) of the right hip(s).? (unknown) (no (unknown) (unknown) Temperature 97.8 F (units (unknown) date) 10/01/22 12:47 unknown) (unknown) (no (unknown) (unknown) Temperature 97.8 F (units (unknown) date) unknown) (unknown) (no (unknown) (unknown) This is a (units (unkn own) date) 82-year-old male unknown) sent for possible right hip pain although patient (unknown) (no (unknown) (unknown) This is an (units (unkn own) date) 82-year-old male unknown) with known dementia on Plavix daily who presents for (unknown) (no (unknown) (unknown) Time Seen by (units (u nknown) date) Provider: 10/01/22 unknown) 12:34 (unknown) (no (unknown) (unknown) Total Bilirubin 0.3 (unit s (unknown) date) (0.2-1.3) mg/dL unknown) (unknown) (no (unknown) (unknown) Total Protein 7.4 (units (unknown) date) (6.3-8.2) g/dL unknown) (unknown) (no (unknown) (unknown) Urine Dip (units (unkn own) date) unknown) (unknown) (no (unknown) (unknown) Urine Specific (units (unknown) date) [place] 1.015 unknown) (unknown) (no (unknown) (unknown) Vital Signs - 8 hr (units (unknown) date) unknown) (unknown) (no (unknown) (unknown) Vital Signs (units (un known) date) unknown) (unknown) (no (unknown) (unknown) Vital signs: (units (u nknown) date) unknown) (unknown) (no (unknown) (unknown) WBC 6.7 (4.5-11.0) (units (unknown) date) X103/uL unknown) (unknown) (no (unknown) (unknown) XR hip w pel if (units (unknown) date) done RT 2V Stat unknown) (unknown) (no (unknown) (unknown) XRay Report (units (un known) date) unknown) (unknown) (no (unknown) (unknown) You have a mild (units (unknown) date) anemia today on your unknown) labs this may be your baseline do not have (unknown) (no (unknown) (unknown) [Embedded Image Not (unit s (unknown) date) Available] unknown) (unknown) (no (unknown) (unknown) although he was (units (unknown) date) standing in the room unknown) and weight-bearing without issue when I (unknown) (no (unknown) (unknown) and below (units (unkn own) date) unknown) (unknown) (no (unknown) (unknown) any priors for (units (unknown) date) comparison. unknown) (unknown) (no (unknown) (unknown) arrived. Patient (units (unknown) date) denies any chest unknown) pain, shortness of breath, no nausea or (unknown) (no (unknown) (unknown) bearing without any (unit s (unknown) date) issue and is unknown) nontender on examination. (unknown) (no (unknown) (unknown) bilaterally. (units (u nknown) date) unknown) (unknown) (no (unknown) (unknown) block. Rate 80 MD (units (unknown) date) 182 QRS of 138 QTC unknown) of 468. No priors for comparison. (unknown) (no (unknown) (unknown) calcification. (units (unknown) date) unknown) (unknown) (no (unknown) (unknown) changes (units (unkno wn) date) unknown) (unknown) (no (unknown) (unknown) clips.? No (units (unk nown) date) unknown) (unknown) (no (unknown) (unknown) complaints (units (unk nown) date) currently although unknown) he does have dementia vitals appear appropriate, (unknown) (no (unknown) (unknown) conjunctival (units (u nknown) date) pallor. Throat is unknown) clear without any exudates, erythema, tonsillar (unknown) (no (unknown) (unknown) electrolytes do not (unit s (unknown) date) show major changes. unknown) Urine is negative. Patient does not (unknown) (no (unknown) (unknown) enlargement or (units (unknown) date) uvular deviation unknown) (unknown) (no (unknown) (unknown) falls or trauma per (unit s (unknown) date) EMS. unknown) (unknown) (no (unknown) (unknown) for discharge back (units (unknown) date) to his home. unknown) (unknown) (no (unknown) (unknown) has clear speech (units (unknown) date) she does try to unknown) answer questions. Unable to give me a medical (unknown) (no (unknown) (unknown) have any other (units (unknown) date) complaints. Vital unknown) signs are appropriate and patient appropriate (unknown) (no (unknown) (unknown) history or prior (units (unknown) date) surgical history. unknown) Patient reportedly had right hip pain by EMS (unknown) (no (unknown) (unknown) in mild distress. (units (unknown) date) Patient generally unknown) cooperative and redirectable. (unknown) (no (unknown) (unknown) lesions.? Mild (units (unknown) date) degenerative unknown) acetabular spurring and subcortical cystic cystic (unknown) (no (unknown) (unknown) masses noted, no (units (unknown) date) hepatosplenomegaly unknown) (unknown) (no (unknown) (unknown) mild arthritis but (units (unknown) date) no other changes. unknown) Patient himself does not have any other (unknown) (no (unknown) (unknown) movements are (units ( unknown) date) intact, nares are unknown) clear, TMs are clear with no fluid, there is no (unknown) (no (unknown) (unknown) normal range of (units (unknown) date) motion. Muscle unknown) strength is 5/5 in upper and lower extremities. (unknown) (no (unknown) (unknown) pulses are equal in (unit s (unknown) date) upper and lower unknown) extremities (unknown) (no (unknown) (unknown) reported right hip (units (unknown) date) pain. Patient states unknown) no issues to myself currently he can (unknown) (no (unknown) (unknown) standing moving (units (unknown) date) without any pain on unknown) palpation. X-ray was obtained shows some (unknown) (no (unknown) (unknown) suspicious bony (units (unknown) date) unknown) (unknown) (no (unknown) (unknown) suspicious soft (units (unknown) date) tissue unknown) calcifications.? Mild atherosclerotic arterial (unknown) (no (unknown) (unknown) symmetrically (units ( unknown) date) unknown) (unknown) (no (unknown) (unknown) tell me his name, (units (unknown) date) he does not know unknown) exactly where he is or why he is here. He (unknown) (no (unknown) (unknown) vomiting no (units (un known) date) diarrhea unknown) constipation or other GI or urinary symptoms. No reported Social History date description facility 2022-10-01 00:00 Unknown if ever smoked [facility] Vital Signs date measurement value units 2022-10-01 00:00 BMI 28.7 kg/m2 2022-10-01 00:00 BP_diastolic 90 mmHg 2022-10-01 00:00 BP_systolic 123 mmHg 2022-10-01 00:00 heart_rate 91 /min 2022-10-01 00:00 height_metric 177.8 cm 2022-10-01 00:00 height_standard 70 in 2022-10-01 00:00 o2_saturation 99 % 2022-10-01 00:00 respiration_rate 18 /min 2022-10-01 00:00 temperature_metric 36.56 C 2022-10-01 00:00 temperature_standard 97.8 F 2022-10-01 00:00 weight_metric 90.71 kg 2022-10-01 00:00 weight_standard 199.98 lb
--- NOTE | 2022-11-26 15:38 | ED Physician Documentation ---
History of Present Illness - Stated complaint Stated Complaint: GROIN PX - Chief complaint Chief Complaint: Abd Pain - Additonal information Additional information: 82-year-old male was referred to the emergency department from his long-term for evaluation of worsening right inguinal and hip pain. Has a known right inguinal hernia that was ultrasounded on the eighth of this month. Reportedly primary provider is attempting to make referral to surgery however the patient has been complaining of increasing pain in this region. History is limited due to dementia. Most of the history is obtained from the patient's daughter at the bedside as well as review of the chart Review of Systems Unable to obtain: Dementia PD PAST MEDICAL HISTORY - Past Medical History Cardiovascular: Hypertension, High cholesterol, Coronary artery disease Respiratory: Pneumonia Neuro: Dementia Endocrine/Autoimmune: Type 2 diabetes GI: Diverticulitis HEENT: Macular degeneration Musculoskeletal: Gout - Past Surgical History Past Surgical History: Yes General: Cholecystectomy, Bowel surgery (colon resection) Cardiovascular: Angioplasty - Present Medications Home Medications: Ambulatory Orders Medication Instructions Recorded Confirmed Epinephrine [Epipen] 0.3 mg IM ONCE PRN #1 01/11/13 09/06/22 Imipramine HCl 100 mg PO HS 01/11/13 09/06/22 Metformin HCl 1,000 mg PO BID 01/11/13 09/06/22 Atorvastatin Calcium 40 mg PO HS 09/06/22 09/06/22 Clopidogrel [Plavix] 75 mg PO DAILY 09/06/22 09/06/[address] [Voltaren] 75 mg PO BIDWM 09/06/22 09/06/22 Insulin Glargine [Lantus Solostar] 3 unit SQ DAILY 09/06/22 09/06/22 Losartan Potassium 25 mg PO DAILY 09/06/22 09/06/22 - Allergies Allergies/Adverse Reactions: Allergies Allergy/AdvReac Type Severity Reaction Status Date / Time peanut Allergy Severe Respiratory Verified 09/06/22 20:10 - Social History Does the pt smoke?: No Smoking Status: Never smoker Does the pt drink ETOH?: No Does the pt have substance abuse?: No - Immunizations Immunizations are current?: Yes - POLST Patient has POLST: No PD ED PE NORMAL - General General: Alert and oriented X 3, No acute distress, Well developed/nourished - HEENT HEENT: Atraumatic, Moist mucous membranes - Neck Neck: Supple, no meningeal sign, No adenopathy - Cardiac Cardiac: RRR, No murmur - Respiratory Respiratory: No respiratory distress, Clear bilaterally - Abdomen Abdomen: Normal bowel sounds, Soft, Non distended, Other (Midline reducible ventral hernia. Large 4 x 4 centimeter right inguinal hernia not reducible. Te nder to palpation though no overlying erythema or induration. It is soft.). No: Non tender - Derm Derm: Normal color, Warm and dry, Other (Dry skin) - Extremities Extremities: No deformity, No tenderness to palpate, Normal ROM s pain - Neuro Neuro: Alert and oriented X 3, investigator vice 2-12 intact Eye Opening: Spontaneous Motor: Obeys Commands Verbal: Oriented GCS Score: 15 Results - Vitals Vitals: Vital Signs - 24 hr 11/26/22 11/26/22 15:25 17:33 Temperature 37.0 C Heart Rate 86 83 Respiratory 18 18 Rate Blood Pressure 153/89 H 155/81 H O2 Saturation 97 98 Oxygen O2 Source Room air - Labs Labs: Laboratory Tests 11/26/22 11/26/22 15:37 15:37 WBC 7.1 RBC 4.20 L Hgb 13.0 L Hct 38.6 L MCV 91.9 MCH 31.0 MCHC 33.7 RDW 14.4 Plt Count 154 MPV 10.0 Neut # (Auto) 5.3 Lymph # (Auto) 0.9 L [place] # (Auto) 0.6 Eos # (Auto) 0.2 Baso # (Auto) 0.1 Absolute Nucleated RBC 0.00 Nucleated RBC % 0.0 Sodium 134 L Potassium 4.3 Chloride 101 Carbon Dioxide 25 Anion Gap 8.0 BUN 19 Creatinine 0.8 Estimated GFR (MDRD) 92 Glucose 128 H Calcium 8.8 Total Bilirubin 0.5 AST 18 ALT 16 Alkaline Phosphatase 89 Total Protein 6.9 Albumin 3.9 Globulin 3.0 Albumin/Globulin Ratio 1.3 Lipase 29 - Rads (name of study) CT abd Relevant Findings:: Final report received (Right fat-containing inguinal hernia. Large stool volume.) PD Medical Decision Making - ED course Complexity details: reviewed results, re-evaluated patient, considered differential, d/w patient ED course: 82-year-old male presents emergency department for worsening right groin pain. This is in the setting of a known right inguinal hernia, For which she has a pending referral to surgery. Much of the history is limited from the patient given dementia and chart review and interview with the daughter is helpful. On exam he does have a nonreducible right inguinal hernia but given reported worsening pain we did obtain a CT of the abdomen pelvis that shows that this is a fat-containing hernia. Clinically there is nothing to suggest incarceration or strangulation. We did obtain a CBC and electrolytes today that per my interpretation show no acute worrisome findings. I have discussed the imaging and laboratory findings with the patient's daughter. Patient is stable for discharge home. Recommend Tylenol for discomfort and to continue follow-up with surgery for longer-term evaluation and management of the hernia. The usual emergent return precautions were discussed Departure - Departure Disposition: 01 Home, Self Care Clinical Impression: Right inguinal hernia Condition: Stable Comments: Hardeep was seen today because he has pain in his right groin where he is known to have an inguinal hernia. Today in the emergency department we obtained CBC and electrolytes were essentially normal for age. We also obtained a CT of the abdomen and pelvis. It does show that this is a fat-containing inguinal hernia. It is important that he continue to follow-up with referral to surgery for longer-term evaluation and management of this. He can take his usual acetaminophen or other pain relievers. Reasons to return to the emergency department would be the development of any fevers, black or bloody stools, if the hernia site becomes red, hard inflamed or indurated.
[2022-11-26 15:42] LABS: BASOPHILS # (AUTO) 0.1 10^3/uL (0.0-0.1); BASOPHILS % (AUTO) 0.8 %; EOSINOPHILS # (AUTO) 0.2 10^3/uL (0.0-0.7); EOSINOPHILS % (AUTO) 2.8 %; HCT - HEMATOCRIT 38.6 % (42.0-52.0); LYMPHOCYTES # (AUTO) 0.9 10^3/uL (1.5-3.5); LYMPHOCYTES % (AUTO) 13.1 %; MEAN CORPUSCULAR HGB CONC 33.7 g/dL (32.0-36.0); MEAN CORPUSCULAR VOLUME 91.9 fL (80.0-94.0); MONOCYTES # (AUTO) 0.6 10^3/uL (0.0-1.0); NEUTROPHILS # (AUTO) 5.3 10^3/uL (1.5-6.6); PLT - PLATELET COUNT 154 10^3/uL (130-450); RED CELL DISTRIBUTION WIDTH 14.4 % (12.0-15.0); WHITE BLOOD COUNT 7.1 x10^3/uL (4.8-10.8)
[2022-11-26] MEDS ORDERED: iohexoL-300 100 ML VIAL ONE (15:44)
[2022-11-26 15:56] LABS: ALBUMIN 3.9 g/dL (3.2-5.5); ALBUMIN/GLOBULIN RATIO 1.3 (1.0-2.2); BILIRUBIN,TOTAL 0.5 mg/dL (0.2-1.0); CALCIUM 8.8 mg/dL (8.5-10.3); CREATININE 0.8 mg/dL (0.6-1.2); POTASSIUM 4.3 mmol/L (3.5-5.0); TOTAL PROTEIN 6.9 g/dL (6.7-8.2)
[2022-11-26] MEDS ORDERED: KETOROLAC 30 MG/ML VIAL IVP STA (16:25)
[2022-11-26] MEDS ORDERED: iohexoL-300 100 ML VIAL IVP ONE (16:47)
--- NOTE | 2022-11-26 17:24 | CT Report ---
PROCEDURE: ABDOMEN/PELVIS W INDICATIONS: inguinal hernia CONTRAST: 100ml omni 300 TECHNIQUE: After the administration of IV contrast contrast, 5 mm thick sections acquired from the diaphragms to the symphysis. 5 mm thick coronal and sagittal reformats were acquired. For radiation dose reducti on, the following was used: automated exposure control, adjustment of mA and/or kV according to isaac ent size. COMPARISON: None. FINDINGS: Image quality: Degraded by patient motion. Dome of the diaphragm is excluded from the [id number]. ABDOMEN: Lung bases: Lung bases are clear. Heart size is normal. Solid organs: The dome of the liver is excluded from the [id number]. Liver and spleen are normal in size and enhancement. Gallbladder not identified. Biliary system is non dilated. Pancreas enhan daren normally. No adrenal nodules. Kidneys demonstrate normal size and enhancement, without hydronep hrosis. Peritoneum and bowel: Bowel loops demonstrate normal wall thickness and caliber. No free fluid or a ir. Large stool volume. Nodes and vessels: No retroperitoneal or mesenteric adenopathy by size criteria. Aorta and inferior vena cava are normal in size. Miscellaneous: No ventral hernias. Sequela of prior supraumbilical hernia repairs. PELVIS: Genitourinary: Bladder wall thickness is normal. Miscellaneous: Fat-containing right inguinal hernia.. Bones: No suspicious bony lesions. No vertebral body compression fractures. IMPRESSION: Right fat containing inguinal hernia. Large stool volume. Reviewed by: Harjit Calderon MD on 11/26/2022 4:23 PM LASHAY Approved by: Harjit Calderon MD on 11/26/2022 4:23 PM AKRADHA Station ID: [id number]
[2022-11-26 17:56] VITALS: BP 155/81
== END 2022-11-26 18:49 | disposition home or self-care (01) ==
LOC: EDUNIT# → ED 15:15
DX: K40.90 Unilateral inguinal hernia, without obstruction or gangrene, not specified as recurrent (principal); F03.90 Unspecified dementia, unspecified severity, without behavioral disturbance, psychotic disturbance, mood disturbance, and anxiety
CPT/HCPCS: 36415; 74177; 80053; 83690; 85025; 96374; 99283; 99284; Q9967

== ENCOUNTER 2023-07-22 19:17 | Outpatient (CLI) | payer MEDICARE | END 2023-07-22 19:18 | disposition critical access hospital (66) | LOC: EMS 19:17 | DX: R25.1 Tremor, unspecified (principal); I10 Essential (primary) hypertension; R45.89 Other symptoms and signs involving emotional state; F03.90 Unspecified dementia, unspecified severity, without behavioral disturbance, psychotic disturbance, mood disturbance, and anxiety | CPT/HCPCS: A0425; A0429 ==

== ENCOUNTER 2023-07-22 19:30 | Inpatient (IN) | payer MEDICARE ==
--- NOTE | 2023-07-22 19:56 | ED Physician Documentation ---
PD HPI ALTERED MENTAL STATUS - Stated complaint Stated Complaint: TREMORS, DEMENTIA - History obtained from History obtained from: Patient, Family, EMS (Report of EMS from the nursing facility was the patient was having some increased level of confusion over baseline (history of dementia) and seem to be tremoring. He was still interactive so not appearing seizures. No noted fever or illness earlier in the day.) - History of Present Illness Timing - onset: Today Timing - duration: Hours Timing - details: Gradual onset, Still present Quality / character: Confused, Other (tremoring whole body) Associated symptoms: No: Fever, Headache, Dyspnea, Cough, NVD PD PAST MEDICAL HISTORY - Past Medical History Cardiovascular: Hypertension, High cholesterol, Coronary artery disease, [place], Arrhythmia, Other Respiratory: Pneumonia Neuro: Dementia Endocrine/Autoimmune: Type 2 diabetes GI: Chronic constipation, Diverticulitis HEENT: Macular degeneration, Chronic hearing loss Musculoskeletal: Gout, Other Derm: Other - Past Surgical History Past Surgical History: Yes General: Cholecystectomy, Bowel surgery, Colonoscopy Cardiovascular: Angioplasty - Present Medications Home Medications: Ambulatory Orders Medication Instructions Recorded Confirmed Epinephrine [Epipen] 0.3 mg IM ONCE PRN #1 01/11/13 01/13/23 Imipramine HCl 100 mg PO HS 01/11/13 01/13/23 Metformin HCl 1,000 mg PO BID 01/11/13 01/13/23 Clopidogrel [Plavix] 75 mg PO DAILY 09/06/22 01/13/[address] [Voltaren] 75 mg PO BIDWM PRN 09/06/22 01/13/23 Insulin Glargine [Lantus Solostar] 10 unit SQ DAILY 09/06/22 01/13/23 Losartan Potassium 25 mg PO DAILY 09/06/22 01/13/23 Multivitamin 1 each PO DAILY 01/13/23 01/13/23 - Allergies Allergies/Adverse Reactions: Allergies Allergy/AdvReac Type Severity Reaction Status Date / Time peanut Allergy Severe Respiratory Verified 07/22/23 20:13 - Social History Does the pt smoke?: No Smoking Status: Never smoker Does the pt drink ETOH?: No Does the pt have substance abuse?: No - Immunizations Immunizations are current?: Yes - POLST Patient has POLST: No PD ED PE NORMAL - General General: No acute distress, Well developed/nourished. No: Alert and oriented X 3 (alert to person) - HEENT HEENT: Atraumatic, Ears normal, Pharynx benign - Neck Neck: Supple, no meningeal sign, No adenopathy - Cardiac Cardiac: No murmur. No: RRR (mild tachycardia at 110 on presentation) - Respiratory Respiratory: No respiratory distress, Clear bilaterally - Abdomen Abdomen: Soft, Non tender, Non distended - Back Back: No CVA TTP - Derm Derm: Normal color, Warm and dry - Extremities Extremities: No tenderness to palpate (abrasion right lateral elbow appears recent, with mild bleeding. FROM of elbow joint. ), No edema, No calf tenderness / cord - Neuro Neuro: No motor deficit Eye Opening: Spontaneous Motor: Obeys Commands Verbal: Confused GCS Score: 14 Results - Vitals Vitals: Vital Signs - 24 hr 07/22/23 07/22/23 07/22/23 19:50 20:13 21:30 Temperature 37.0 C 38.8 C H Heart Rate 103 H 110 H Respiratory 20 18 18 Rate Blood Pressure 115/57 L 103/67 O2 Saturation 97 98 07/22/23 07/22/23 07/22/23 22:48 22:58 23:25 Temperature 38.1 C H 38.1 C H Heart Rate 97 Respiratory 18 Rate Blood Pressure 90/73 O2 Saturation 96 07/23/23 07/23/23 07/23/23 00:12 00:42 02:17 Temperature 37.2 C Heart Rate 86 68 Respiratory 18 18 Rate Blood Pressure 87/47 L 87/45 L O2 Saturation 91 L 94 07/23/23 02:24 Temperature 36.8 C Heart Rate Respiratory Rate Blood Pressure O2 Saturation Oxygen O2 Source Room air - Labs Labs: Laboratory Tests 07/22/23 07/22/23 07/22/23 20:04 20:04 20:04 WBC 5.8 RBC 4.28 L Hgb 13.4 L Hct 40.1 L MCV 93.7 MCH 31.3 H MCHC 33.4 RDW 13.6 Plt Count 149 MPV 10.3 Neut # (Auto) 5.5 Lymph # (Auto) 0.2 L [place] # (Auto) 0.0 Eos # (Auto) 0.0 Baso # (Auto) 0.0 Absolute Nucleated RBC 0.00 Nucleated RBC % 0.0 Sodium 136 Potassium 4.0 Chloride 100 L Carbon Dioxide 25 Anion Gap 11.0 BUN 28 H Creatinine 1.0 Estimated GFR (MDRD) 71 L Glucose 137 H POC Whole Bld Glucose Lactic Acid Calcium 9.3 Magnesium 1.2 L 1.2 L Total Bilirubin 1.1 H AST 50 H ALT 26 Alkaline Phosphatase 104 B-Natriuretic Peptide Total Protein 6.9 Albumin 4.1 Globulin 2.8 Albumin/Globulin Ratio 1.5 Lipase 14 Urine Color Urine Clarity Urine pH Ur Specific [place] Urine Protein Urine Glucose (UA) Urine Ketones Urine Occult Blood Urine Nitrite Urine Bilirubin Urine Urobilinogen Ur Leukocyte Esterase Urine RBC Urine WBC Ur Squamous Epith Cells Amorphous Sediment Urine Bacteria Urine Casts Urine Mucus Ur Microscopic Review Urine Culture Comments Nasal Adenovirus (PCR) Nasal B. parapertussis DNA (PCR) Nasal Coronavir 229E PCR Nasal Coronavir HKU1 PCR Nasal Coronavir NL63 PCR Nasal Coronavir OC43 PCR Nasal Enterovir/Rhinovir PCR Nasal Influenza B PCR Nasal Influenza A PCR Nasal Parainfluen 1 PCR Nasal Parainfluen 2 PCR Nasal Parainfluen 3 PCR Nasal Parainfluen 4 PCR Nasal RSV (PCR) Nasal B.pertussis DNA PCR Nasal C.pneumoniae (PCR) Isaac Human Metapneumo PCR Nasal M.pneumoniae (PCR) Nasal SARS-CoV-2 (PCR) 07/22/23 07/22/23 07/22/23 20:04 20:05 21:28 WBC RBC Hgb Hct MCV MCH MCHC RDW Plt Count MPV Neut # (Auto) Lymph # (Auto) [place] # (Auto) Eos # (Auto) Baso # (Auto) Absolute Nucleated RBC Nucleated RBC % Sodium Potassium Chloride Carbon Dioxide Anion Gap BUN Creatinine Estimated GFR (MDRD) Glucose POC Whole Bld Glucose Lactic Acid Calcium Magnesium Total Bilirubin AST ALT Alkaline Phosphatase B-Natriuretic Peptide 86 Total Protein Albumin Globulin Albumin/Globulin Ratio Lipase Urine Color YELLOW Urine Clarity CLEAR Urine pH 6.0 Ur Specific [place] 1.025 Urine Protein >=300 H Urine Glucose (UA) 100 H Urine Ketones TRACE Urine Occult Blood NEGATIVE Urine Nitrite NEGATIVE Urine Bilirubin NEGATIVE Urine Urobilinogen 4 H Ur Leukocyte Esterase NEGATIVE Urine RBC 0-5 Urine WBC 0-3 Ur Squamous Epith Cells FEW Squamous Amorphous Sediment Few Urine Bacteria Rare Urine Casts 3-5 Hyaline Casts Urine Mucus Moderate Strands Ur Microscopic Review INDICATED Urine Culture Comments NOT INDICATED Nasal Adenovirus (PCR) NOT DETECTED Nasal B. parapertussis DNA (PCR) NOT DETECTED Nasal Coronavir 229E PCR NOT DETECTED Nasal Coronavir HKU1 PCR NOT DETECTED Nasal Coronavir NL63 PCR NOT DETECTED Nasal Coronavir OC43 PCR NOT DETECTED Nasal Enterovir/Rhinovir PCR NOT DETECTED Nasal Influenza B PCR NOT DETECTED Nasal Influenza A PCR NOT DETECTED Nasal Parainfluen 1 PCR NOT DETECTED Nasal Parainfluen 2 PCR NOT DETECTED Nasal Parainfluen 3 PCR NOT DETECTED Nasal Parainfluen 4 PCR NOT DETECTED Nasal RSV (PCR) NOT DETECTED Nasal B.pertussis DNA PCR NOT DETECTED Nasal C.pneumoniae (PCR) NOT DETECTED Isaac Human Metapneumo PCR NOT DETECTED Nasal M.pneumoniae (PCR) NOT DETECTED Nasal SARS-CoV-2 (PCR) NOT DETECTED 07/22/23 07/23/23 22:22 00:39 WBC RBC Hgb Hct MCV MCH MCHC RDW Plt Count MPV Neut # (Auto) Lymph # (Auto) [place] # (Auto) Eos # (Auto) Baso # (Auto) Absolute Nucleated RBC Nucleated RBC % Sodium Potassium Chloride Carbon Dioxide Anion Gap BUN Creatinine Estimated GFR (MDRD) Glucose POC Whole Bld Glucose 237 H Lactic Acid < 0.2 L Calcium Magnesium Total Bilirubin AST ALT Alkaline Phosphatase B-Natriuretic Peptide Total Protein Albumin Globulin Albumin/Globulin Ratio Lipase Urine Color Urine Clarity Urine pH Ur Specific [place] Urine Protein Urine Glucose (UA) Urine Ketones Urine Occult Blood Urine Nitrite Urine Bilirubin Urine Urobilinogen Ur Leukocyte Esterase Urine RBC Urine WBC Ur Squamous Epith Cells Amorphous Sediment Urine Bacteria Urine Casts Urine Mucus Ur Microscopic Review Urine Culture Comments Nasal Adenovirus (PCR) Nasal B. parapertussis DNA (PCR) Nasal Coronavir 229E PCR Nasal Coronavir HKU1 PCR Nasal Coronavir NL63 PCR Nasal Coronavir OC43 PCR Nasal Enterovir/Rhinovir PCR Nasal Influenza B PCR Nasal Influenza A PCR Nasal Parainfluen 1 PCR Nasal Parainfluen 2 PCR Nasal Parainfluen 3 PCR Nasal Parainfluen 4 PCR Nasal RSV (PCR) Nasal B.pertussis DNA PCR Nasal C.pneumoniae (PCR) Isaac Human Metapneumo PCR Nasal M.pneumoniae (PCR) Nasal SARS-CoV-2 (PCR) - Rads (name of study) head CT Relevant Findings:: Prelim report reviewed (age related changes. No acute abnormality), EMP independent interpretation of test chest xray Relevant Findings:: Prelim report reviewed, EMP independent interpretation of test (no infiltrates. Chronic changes noted. ) PD Medical Decision Making - ED course Complexity details: considered differential (Tremors and some level of increased confusion from his usual dementia. Here in the ER developed fever of 38.8. No obvious source of infection. However he initially was tachycardic. Somewhat low blood pressure initially and has decreased despite fluids.), d/w patient, d/w family ED course: The patient with tremors initially. This did improve actually with some IV magnesium after lab tests were obtained and showed a low magnesium of 1.2. His white count is normal. He did develop the fever and so we did obtain some blood cultures chest x-ray and a urine test as well as a respiratory viral panel. These are all negative. He was interactive well enough to answer questions about symptoms. He denied headache or chest pain or belly pain. Palpation of the abdomen was not tender. No obvious skin sores or lesions. At this point unclear the cause of the fever. No obvious source initially. My main concern at this point is as a somewhat soft blood pressure without an obv ious reason. His white count and lactic acid are normal but he still has markers suggestive of impending sepsis with low blood pressure, initial tachycardia and developing fever. His temperature did decrease from 38.8-38.1 after some acetaminophen. We can give some Toradol IV as well. He was given IV fluids of 2 L. Blood pressure still relatively low at a 87-100 systolic. He appears well and comfortable however. Lungs are clear. Abdomen is still soft and nontender. CT of his head was normal. I am uncomfortable with the general scenario even though I do not have markers to suggest sepsis by blood tests. I will contact the hospitalist and discussed the case with them. The patient was given a dose of cefepime IV for coverage for potential bacterial causes. Consideration can be a viral illness without being on the viral PCR panel. Or could be early on and not positive yet. I think the patient would be better watched in the hospital for a day or 2 to see how this evolves but again I will consult the hospitalist. Departure - Departure Disposition: ED Place in Observation Clinical Impression: Fever, Hypotension, Dementia, Tremor Condition: Stable Record reviewed to determine appropriate education?: Yes
[2023-07-22 20:12] LABS: BASOPHILS % (AUTO) 0.7 %; EOSINOPHILS % (AUTO) 0.2 %; HCT - HEMATOCRIT 40.1 % (42.0-52.0); HGB - HEMOGLOBIN 13.4 g/dL (14.0-18.0); LYMPHOCYTES # (AUTO) 0.2 10^3/uL (1.5-3.5); LYMPHOCYTES % (AUTO) 3.8 %; MEAN CORPUSCULAR HEMOGLOBIN 31.3 pg (27.0-31.0); MEAN CORPUSCULAR HGB CONC 33.4 g/dL (32.0-36.0); MEAN CORPUSCULAR VOLUME 93.7 fL (80.0-94.0); MEAN PLATELET VOLUME 10.3 fL (7.4-11.4); MONOCYTES % (AUTO) 0.7 %; NEUTROPHILS # (AUTO) 5.5 10^3/uL (1.5-6.6); NEUTROPHILS % (AUTO) 94.4 %; PLT - PLATELET COUNT 149 10^3/uL (130-450); RED BLOOD COUNT 4.28 10^6/uL (4.70-6.10); RED CELL DISTRIBUTION WIDTH 13.6 % (12.0-15.0); WHITE BLOOD COUNT 5.8 x10^3/uL (4.8-10.8)
[2023-07-22 20:32] LABS: ALBUMIN 4.1 g/dL (3.2-5.5); ALBUMIN/GLOBULIN RATIO 1.5 (1.0-2.2); BILIRUBIN,TOTAL 1.1 mg/dL (0.2-1.0); CALCIUM 9.3 mg/dL (8.5-10.3); MAGNESIUM 1.2 mg/dL (1.7-2.3); TOTAL PROTEIN 6.9 g/dL (6.4-8.9)
[2023-07-22] MEDS ORDERED: MAGNESIUM SULFATE 2 GRAM 2 GM/50 ML BAG IV ONE (21:14)
[2023-07-22 21:32] LABS: BILIRUBIN,URINE NEGATIVE (NEGATIVE); GLUCOSE, URINE (UA) 100 mg/dL (NEGATIVE); KETONES,URINE (UA) TRACE mg/dL (NEGATIVE); LEUKOCYTE ESTERASE, URINE NEGATIVE (NEGATIVE); NITRITE,URINE NEGATIVE (NEGATIVE); OCCULT BLOOD,URINE NEGATIVE (NEGATIVE); PROTEIN,URINE >=300 mg/dL (NEGATIVE); UROBILINOGEN,URINE 4 E.U./dL (NORMAL)
[2023-07-22 21:34] LABS: CLARITY,URINE CLEAR (CLEAR)
[2023-07-22 21:39] LABS: AMORPHOUS SEDIMENT,UR Few /LPF; BACTERIA,URINE Rare /HPF (None Seen); CASTS, URINE 3-5 Hyaline Casts /LPF; MUCUS,URINE Moderate Strands; RBC,URINE 0-5 /HPF (0-5); SQUAMOUS EPITHELIAL CELL,UR FEW Squamous (<= Few); WBC,URINE 0-3 /HPF (0-3)
[2023-07-22] MEDS ORDERED: ACETAMINOPHEN 500 MG TABLET PO STA (22:06)
[2023-07-22] MEDS ORDERED: SODIUM CHLORIDE 0.9% 500 ML IV STA ×2 (22:11→23:33)
--- NOTE | 2023-07-22 22:22 | CT Report ---
PROCEDURE: HEAD WO INDICATIONS: shaking/tremors, dementia; possible fall TECHNIQUE: Noncontrast 4.5 mm thick angled axial sections acquired from the foramen magnum to the vertex. For r adiation dose reduction, the following was used: automated exposure control, adjustment of mA and/or kV according to patient size. COMPARISON: None. FINDINGS: Image quality: Excellent. CSF spaces: Basal cisterns are patent. No extra-axial fluid collections. Ventricles are normal in size and shape. Brain: No midline shift. No intracranial masses or hemorrhage. [place]-white matter interface is norm al. Skull and face: Calvarium and visualized facial bones are intact, without suspicious lesions. Sinuses: Visualized sinuses and mastoids are clear except for moderate concentric mucosal thickening involving the right maxillary sinus with likelihood of a prior distant past resection of a portion o f the medial wall of this sinus cavity.. IMPRESSION: No acute intracranial pathology. Chronic right maxillary sinusitis with probable past resection of a portion of the medial wall of richard t sinus cavity. Reviewed by: Cisco Day MD on 07/22/2023 10:21 PM PST Approved by: Cisco Day MD on 07/22/2023 10:21 PM PST Station ID: [id number]
--- NOTE | 2023-07-22 22:50 | XRAY Report ---
PROCEDURE: Chest 1 View X-Ray INDICATIONS: fever, confused TECHNIQUE: One view of the chest was acquired. COMPARISON: 03/01/2017 two-view chest. FINDINGS: Surgical changes and devices: None. Lungs and pleura: No pleural effusions or pneumothorax. Lungs are free of focal pneumonia but there is a mild interstitial prominence that appears chronic. Mediastinum: Mediastinal contours appear normal. Heart size is normal. Bones and chest wall: No suspicious bony lesions. Overlying soft tissues appear unremarkable. IMPRESSION: No acute cardiopulmonary process. Mild chronic interstitial prominence, without cardiomegaly. Reviewed by: Cisco Day MD on 07/22/2023 10:48 PM PST Approved by: Cisco Day MD on 07/22/2023 10:48 PM PST Station ID: [id number]
[2023-07-23 00:04] LABS: B. PARAPERTUSSIS- RESP PCR PAN NOT DETECTED; B. PERTUSSIS- RESP PCR PANEL NOT DETECTED; C. PNEUMONIAE- RESP PCR PANEL NOT DETECTED; CORONAVIRUS 229E-RESP PCR NOT DETECTED; CORONAVIRUS HKU1-RESP PCR NOT DETECTED; CORONAVIRUS NL63-RESP PCR NOT DETECTED; CORONAVIRUS OC43-RESP PCR NOT DETECTED; HUMAN METAPNEUMOVIRUS NOT DETECTED; INFLUENZA A- RESP PCR PANEL NOT DETECTED; INFLUENZA B - RESP PCR PANEL NOT DETECTED; M. PNEUMONIAE- RESP PCR PANEL NOT DETECTED; PARAINFLUENZA VIRUS 1 NOT DETECTED; PARAINFLUENZA VIRUS 2 NOT DETECTED; PARAINFLUENZA VIRUS 3 NOT DETECTED; PARAINFLUENZA VIRUS 4 NOT DETECTED; RHINOVIRUS/ENTEROVIRUS NOT DETECTED; RSV- RESP PCR PANEL NOT DETECTED; SARS-CoV-2 -RESP PCR PANEL NOT DETECTED
[2023-07-23] MEDS ORDERED: SODIUM CHLORIDE 0.9% 1,000 ML IV STA ×2 (00:38→02:24)
[2023-07-23] MEDS ORDERED: CEFEPIME 1 GM in SODIUM CHLORIDE 0.9% MINIBAG 100 ML IV STA (02:03)
[2023-07-23] MEDS ORDERED: ONDANSETRON 4 MG/2 ML VIAL IVP PRN (02:21)
[2023-07-23] MEDS ORDERED: KETOROLAC 15 MG/ML VIAL IVP STA (02:24)
[2023-07-23] MEDS ORDERED: ACETAMINOPHEN 325 MG TABLET PO PRN (02:28)
--- NOTE | 2023-07-23 02:38 | HISTORY & PHYSICAL EXAMINATION ---
Chief Complaint - Chief Complaint Chief Complaint: AMS History of Present Illness - History of Present Illness HPI Comment/Other: 83 y old male with PMH HTN, DM 2, HLP, CAD, H/O [place], dementia [facility] due to altered mental status. Pt is unable to provide any meaningful history , so most of history is from ER physician and ER record. Pt was febrile with Temp of 38.1, tachycardic and hypotensive Labs showed normal WBC and lactic acid Mag 1.2 UA neg, CXR showed no acute findings CT brain showed no acute findings In ER, pt was given IVF and cefepime Pt is admitted due to AMS, Sepsis, hypotension, hypomagnesemia, acute enc ephalopathy History - Past Medical History Cardiovascular: reports: Hypertension, High cholesterol, Coronary artery disease, [place], Arrhythmia, Other Respiratory: reports: Pneumonia Neuro: reports: Dementia Endocrine/Autoimmune: reports: Type 2 diabetes GI: reports: Chronic constipation, Diverticulitis HEENT: reports: Macular degeneration, Chronic hearing loss Musculoskeletal: reports: Gout, Other Derm: reports: Other MRSA Hx?: No - Past Surgical History General: reports: Cholecystectomy, Bowel surgery, Colonoscopy Cardiovascular: reports: Angioplasty - POLST Patient has POLST: No Meds/Allgy - Home Medications Home Medications: Ambulatory Orders Medication Instructions Recorded Confirmed Epinephrine [Epipen] 0.3 mg IM ONCE PRN #1 01/11/13 01/13/23 Imipramine HCl 100 mg PO HS 01/11/13 01/13/23 Metformin HCl 1,000 mg PO BID 01/11/13 01/13/23 Clopidogrel [Plavix] 75 mg PO DAILY 09/06/22 01/13/[address] [Voltaren] 75 mg PO BIDWM PRN 09/06/22 01/13/23 Insulin Glargine [Lantus Solostar] 10 unit SQ DAILY 09/06/22 01/13/23 Losartan Potassium 25 mg PO DAILY 09/06/22 01/13/23 Multivitamin 1 each PO DAILY 01/13/23 01/13/23 - Allergies Allergies/Adverse Reactions: Allergies Allergy/AdvReac Type Severity Reaction Status Date / Time peanut Allergy Severe Respiratory Verified 07/22/23 20:13 Review of Systems - Other Findings Other Findings: Unable to obtain due to AMS Exam - Vital Signs Vital Signs: Vital Signs x48h Temp Pulse Resp BP Pulse Ox 07/23/23 02:24 36.8 C 07/23/23 02:17 68 18 87/45 L 94 07/23/23 00:42 86 18 87/47 L 91 L 07/23/23 00:12 37.2 C 07/22/23 23:25 97 18 90/73 96 07/22/23 22:58 38.1 C H 07/22/23 22:48 38.1 C H 07/22/23 21:30 38.8 C H 110 H 18 103/67 98 07/22/23 20:13 18 07/22/23 19:50 37.0 C 103 H 20 115/57 L 97 - Physical Exam General Appearance: positive: No acute distress Eyes Bilateral: positive: Normal inspection ENT: positive: ENT inspection nml Neck: positive: Nml inspection Respiratory: positive: Breath sounds nml Cardiovascular: positive: Regular rate & rhythm Abdomen: positive: Non-tender, Nml bowel sounds Skin: positive: No rash Extremities: positive: No pedal edema Neurologic/Psychiatric: positive: Motor nml, Disoriented to person, Disoriented to place, Disoriented to time Conclusion/Plan - Lab Results Fish Bones: 07/22/23 20:04 07/22/23 20:04 - Other Other Results/Comments: A; AMS Acute encephalopathy Sepsis Hypotension Febrile illness Hypomagnesemia HTN DM 2 Hyperlipidemia CAD H/O [place] Dementia Plan: Admit to tele NPO Swallow eval Start NS @125 cc/h Monitor mental status Neuro checks q4h Follow cultures Start zosyn and vanco emperically Repeat CBC, CMP in am Tylenol 650 mg po q6h prn Replace magnesium hold losartan Start sliding scale insulin Supportive care DVT prophylaxic: SCD Full code Pt is admitted as inpatient as more than 2 midnight stay is expected
[2023-07-23] MEDS ORDERED: VANCOMYCIN INJ 2 GM in SODIUM CHLORIDE 0.9% 500 ML IV SCH (03:00)
[2023-07-23] MEDS: PIPERACILLIN/TAZOBACTAM 3.375 GM in SODIUM CHLORIDE 0.9% MINIBAG 100 ML IV SCH ×4 (03:14→20:51)
[2023-07-23] MEDS: SODIUM CHLORIDE 0.9% 1,000 ML IV SCH ×3 (03:48→17:36)
[2023-07-23] MEDS: SODIUM CHLORIDE FLUSH 0.9% 10 ML SYRINGE IVP SCH ×2 (03:57→15:02)
[2023-07-23] MEDS ORDERED: SODIUM CHLORIDE 0.9% 500 ML IV ONE ×2 (04:55→05:19)
[2023-07-23 05:10] LABS: BASOPHILS % (AUTO) 0.3 %; HCT - HEMATOCRIT 20.7 % (42.0-52.0); LYMPHOCYTES # (AUTO) 0.3 10^3/uL (1.5-3.5); LYMPHOCYTES % (AUTO) 3.1 %; MEAN CORPUSCULAR HEMOGLOBIN 31.8 pg (27.0-31.0); MEAN CORPUSCULAR HGB CONC 32.4 g/dL (32.0-36.0); MEAN CORPUSCULAR VOLUME 98.1 fL (80.0-94.0); MEAN PLATELET VOLUME 10.5 fL (7.4-11.4); MONOCYTES # (AUTO) 0.5 10^3/uL (0.0-1.0); MONOCYTES % (AUTO) 5.4 %; NEUTROPHILS # (AUTO) 8.3 10^3/uL (1.5-6.6); NEUTROPHILS % (AUTO) 90.4 %; PLT - PLATELET COUNT 74 10^3/uL (130-450); RED BLOOD COUNT 2.11 10^6/uL (4.70-6.10); RED CELL DISTRIBUTION WIDTH 13.5 % (12.0-15.0); WHITE BLOOD COUNT 9.2 x10^3/uL (4.8-10.8)
[2023-07-23 05:27] LABS: HGB - HEMOGLOBIN 6.7 g/dL (14.0-18.0)
[2023-07-23 05:31] LABS: ABG HCO3 19.3 mmol/L (22.0-26.0); ABG PCO2 35 mmHg (34-45); ABG PH 7.36 (7.35-7.45); ABG PO2 83 mmHg (80-100); ABG TCO2 20.3 MMOL/L (21.0-29.0)
[2023-07-23 05:34] LABS: ABG BASE EXCESS -5.5 mmol/L (-2.0-3.0)
[2023-07-23 05:35] LABS: ABG OXYGEN SATURATION 95 % (94-98); ALLEN TEST POSITIVE
[2023-07-23 05:55] LABS: ALBUMIN 1.7 g/dL (3.2-5.5)
[2023-07-23] MEDS ORDERED: NOREPINEPHRINE/0.9 % NS 8 MG/250 ML BAG IV SCH (06:00)
[2023-07-23] MEDS ORDERED: INSULIN REGULAR HUMAN 300 UNIT/3 ML VIAL SUBQ SCH ×2 (06:00→12:00)
[2023-07-23 06:06] LABS: ALKALINE PHOSPHATASE 41 IU/L (42-121); ALT ALANINE AMINOTRANSFERASE 11 IU/L (10-60); AST ASPARTATE AMINOTRANSFERASE 21 IU/L (10-42); BILIRUBIN,TOTAL 0.4 mg/dL (0.2-1.0); BUN - BLOOD UREA NITROGEN 20 mg/dL (6-20); CALCIUM 4.2 mg/dL (8.5-10.3); CARBON DIOXIDE - CO2 13 mmol/L (21-32); CHLORIDE 126 mmol/L (101-111); CREATININE 0.5 mg/dL (0.6-1.3); GFR - MDRD 158 (>89); GLUCOSE 106 mg/dL (74-104); SODIUM 145 mmol/L (135-145); TOTAL PROTEIN < 3.0 g/dL (6.4-8.9)
[2023-07-23 06:36] LABS: INR 1.2 (0.8-1.2); PT - PROTHROMBIN TIME 12.4 secs (9.9-12.6)
[2023-07-23 06:52] LABS: CALCIUM, IONIZED 1.06 mmol/L (1.15-1.33); VBG PH 7.333 (7.31-7.41)
[2023-07-23 07:19] LABS: BASOPHILS # (AUTO) 0.1 10^3/uL (0.0-0.1); BASOPHILS % (AUTO) 0.5 %; EOSINOPHILS % (AUTO) 0.1 %; HCT - HEMATOCRIT 34.1 % (42.0-52.0); HGB - HEMOGLOBIN 11.1 g/dL (14.0-18.0); LYMPHOCYTES # (AUTO) 0.6 10^3/uL (1.5-3.5); LYMPHOCYTES % (AUTO) 4.4 %; MEAN CORPUSCULAR HEMOGLOBIN 31.6 pg (27.0-31.0); MEAN CORPUSCULAR HGB CONC 32.6 g/dL (32.0-36.0); MEAN CORPUSCULAR VOLUME 97.2 fL (80.0-94.0); MONOCYTES # (AUTO) 0.7 10^3/uL (0.0-1.0); NEUTROPHILS # (AUTO) 11.9 10^3/uL (1.5-6.6); NEUTROPHILS % (AUTO) 89.3 %; PLT - PLATELET COUNT 123 10^3/uL (130-450); RED BLOOD COUNT 3.51 10^6/uL (4.70-6.10); RED CELL DISTRIBUTION WIDTH 13.8 % (12.0-15.0); WHITE BLOOD COUNT 13.3 x10^3/uL (4.8-10.8)
[2023-07-23] MEDS ORDERED: NORepinephrine 8 MG in DEXTROSE 5% 250ML IV SCH (07:30)
[2023-07-23] MEDS ORDERED: CALCIUM GLUC 1,000MG/50ML-NACL 1,000 MG/50 ML BAG IV ONE (07:34)
[2023-07-23] MEDS: MAGNESIUM SULFATE 2 GRAM 2 GM/50 ML BAG IV ONE (08:09)
[2023-07-23] MEDS: POTASSIUM CHLOR 10 MEQ/100 ML 10 MEQ/100 ML BAG IV SCH ×8 (08:11→16:10)
--- NOTE | 2023-07-23 08:36 | PHARMACY PROGRESS NOTE ---
- Best Possible Medication History Admit Date and Time: 07/23/23220 Processed by: Pharmacy Medication History completed: Yes Patient Interview: Pt unable to participate Secondary Source(s): Facility MAR as ONLY source As the person ultimately responsible for medication therapy, providers are able to order a medication from an existing home medication list in [facility] via the "Reconcile Routine" prior to Confirmation of that medication by ground crewman aircraft support. Such practice is discouraged except when the physician, in their clinical judgment, deems that a medical need exists for a medication without regard to previous use.
[2023-07-23] MEDS ORDERED: PANTOPRAZOLE 40 MG in SODIUM CHLORIDE 0.9% 100ML 100 ML IV SCH (09:00)
[2023-07-23] MEDS: PANTOPRAZOLE 40 MG VIAL IVP SCH ×2 (09:27→20:51)
--- NOTE | 2023-07-23 09:42 | XRAY Report ---
PROCEDURE: Chest 1 View X-Ray INDICATIONS: Sepsis TECHNIQUE: One view of the chest was acquired. COMPARISON: 07/22/2023 FINDINGS: Surgical changes and devices: None. Lungs and pleura: No pleural effusions or pneumothorax. Lungs are clear. Mediastinum: Mediastinal contours appear normal. Heart size is normal. Atherosclerotic vascular epifanio cification noted in the aortic arch. Bones and chest wall: No suspicious bony lesions. Overlying soft tissues appear unremarkable. IMPRESSION: No acute cardiopulmonary findings Reviewed by: Mingo Devi MD on 07/23/2023 8:41 AM [facility] Approved by: Mingo Devi MD on 07/23/2023 8:41 AM [facility] Station ID: [id number]
[2023-07-23] MEDS: INSULIN LISPRO 300 UNIT/3 ML PEN SUBQ SCH ×3 (12:50→21:10)
--- NOTE | 2023-07-23 12:56 | PROVIDER PROGRESS NOTE ---
Assessment/Plan - Problem List (1) Shock circulatory Assessment/Plan: -- Shock has resolved. He ultimately did not require vasopressor medication. --Exact etiology of his hypotension was unknown. Initially believed to be hemorrhagic shock however his hemoglobin was likely inaccurate as it improved on recheck. --No source of infection has been found on chest x-ray. Patient does have a history of an umbilical hernia but this does not appear incarcerated. -- Trending lactic acid. We will obtain a CT abdomen/pelvis if his lactic acid remains elevated however patient is not endorsing any abdominal symptoms. -- He was placed on IV Protonix 40 mg twice daily due to concern for bleeding. We have also held his Plavix. If his hemoglobin remained stable can likely resume Plavix and discontinue his Protonix tomorrow. -- Continue IV vancomycin and Zosyn. --Blood cultures pending. -- We will order a procalcitonin. -- Viral PCR negative. (2) SIRS (systemic inflammatory response syndrome) Assessment/Plan: -- Continue IV vancomycin and Zosyn. --Blood cultures currently pending. --Chest x-ray unremarkable. --Trending lactic acid. --No source of infection uncovered. We will empirically treat with antibiotics for additional 24 to 48 hours and reassess. (3) Acute metabolic encephalopathy Assessment/Plan: -- Patient does have dementia at baseline however he was significantly more somnolent on admission. --Correcting electrolytes. --CT head negative for any acute findings. -- Mental status is improving. -- I do not suspect meningitis. (4) CAD (coronary artery disease) Assessment/Plan: -- Patient has not had any intervention in the past year. --On telemetry. --No EKG or troponin on admission. --No prior TTE in the chart. Will order an echo to r/o wall motion abnormali ties. --We will resume home Plavix tomorrow if his hemoglobin remained stable and he does not show any signs of bleeding. --Continue statin. (5) HTN (hypertension) Assessment/Plan: --Holding all home antihypertensives due to low blood pressures. (6) DM2 (diabetes mellitus, type 2) Assessment/Plan: --A1c pending. --SSI insulin. (7) Dementia Assessment/Plan: -- Resides in a dementia unit. Will await family arrival to determine if patient's current mental status is at baseline. -- He is pleasantly confused. (8) Abdominal hernia Assessment/Plan: --Patient has an abdominal hernia. Per family he was not cleared for surgery by Cardiology. --Does not appear strangulated or tender. Pending next lactic acid, will order a CT scan to evaluate. - Current Meds Current Meds: Current Medications Generic Name Dose Route Start Last Admin Trade Name Freq PRN Reason Stop Dose Admin Sodium Chloride 1,000 mls @ 125 mls/hr 07/23/23 03:00 07/23/23 09:10 Normal Saline 0.9% IV 125 mls/hr .Q8H DAYANARA Administration Piperacillin Sod/Tazobactam 100 mls @ 200 mls/hr 07/23/23 03:00 07/23/23 09:27 Sod 3.375 gm/ Sodium Chloride IV 200 mls/hr Q6H DAYANARA Administration Vancomycin HCl 2 gm/ Sodium 500 mls @ 250 mls/hr 07/23/23 03:00 07/23/23 0 4:32 Chloride IV 07/24/23 02:59 250 mls/hr ONCE DAYANARA Administration Potassium Chloride 10 meq in 100 mls @ 100 mls/hr 07/23/23 08:00 07/23/23 12:52 Potassium Chloride IV 07/23/23 15:59 100 mls/hr Q1H DAYANARA Administration Protocol Insulin Human Lispro 1 - 5 unit 07/23/23 12:00 07/23/23 12:50 Insulin Lispro 300 Unit/3 Ml Pen SUBQ Not Given 0800,1200,1700,2100 [facility] Protocol Pantoprazole Sodium 40 mg 07/23/23 09:00 07/23/23 09:27 Pantoprazole 40 Mg Vial IVP 40 mg BID DAYANARA Administration Sodium Chloride 10 ml 07/23/23 09:00 07/23/23 03:57 Sodium Chloride Flush 0.9% 10 Ml Syringe IVP 10 ml 0100,0900,1700 DAYANARA Administration - Lab Result Fish Bone Diagrams: 07/23/23 06:36 07/23/23 05:05 - Diagnostic Imaging Results Diagnostic Imaging Results: Final report reviewed - Additional Planning Condition/Complexity: Improved My Orders: My Active Orders 07/23/23 CUL, URINE [RM] Routine FECAL OCCULT BLOOD (FIT) Routine 07/23/23 06:36 HEMOGLOBIN A1c% [CHEM] Routine 07/23/23 07:37 Initiate Hypoglycemia Protocol [RC] .protocol 07/23/23 07:39 SCDs [RC] QSMEFT 07/23/23 08:00 Potassium Chlor 10 Meq/100 ml [Potassium Chloride] 10 meq in 100 ml IV Q1H 07/23/23 08:42 Initiate ICU Electrolyte Prot. [RC] QSHIFT 07/23/23 09:00 Pantoprazole [Protonix] 40 mg IVP BID 07/23/23 Lunch Regular Diet [DIET] 07/23/23 11:20 Blood Glucose Checks - Eating [RC] 0800,1200,1700,2100 Initiate Hypoglycemia Protocol [RC] .protocol 07/23/23 11:55 MRSA PCR,CCU ADMIT Routine 07/23/23 12:00 Insulin Lispro [Humalog Kwikpen U-100] 1 - 5 unit SUBQ 0800,1200,1700,2100 07/23/23 12:08 CALCIUM [CHEM] Timed LACTIC ACID, VENOUS [CHEM] Stat MAGNESIUM [CHEM] Timed 07/23/23 21:00 Atorvastatin [Lipitor] 40 mg PO QPM 07/24/23 05:00 CBC - COMP BLD CT W/AUTO DIFF [HEME] DAILYLAB COMPREHENSIVE METABOLIC PANEL [CHEM] DAILYLAB 07/25/23 05:00 CBC - COMP BLD CT W/AUTO DIFF [HEME] DAILYLAB COMPREHENSIVE METABOLIC PANEL [CHEM] DAILYLAB 07/26/23 05:00 CBC - COMP BLD CT W/AUTO DIFF [HEME] DAILYLAB COMPREHENSIVE METABOLIC PANEL [CHEM] DAILYLAB 07/27/23 05:00 CBC - COMP BLD CT W/AUTO DIFF [HEME] DAILYLAB COMPREHENSIVE METABOLIC PANEL [CHEM] DAILYLAB 07/28/23 05:00 CBC - COMP BLD CT W/AUTO DIFF [HEME] DAILYLAB COMPREHENSIVE METABOLIC PANEL [CHEM] DAILYLAB 07/29/23 05:00 CBC - COMP BLD CT W/AUTO DIFF [HEME] DAILYLAB COMPREHENSIVE METABOLIC PANEL [CHEM] DAILYLAB 07/30/23 05:00 CBC - COMP BLD CT W/AUTO DIFF [HEME] DAILYLAB COMPREHENSIVE METABOLIC PANEL [CHEM] DAILYLAB Plan Discussed with:: Family Additional Planning Notes: Critical care time 50 minutes. Subjective - Subjective Patient Reports: Feeling Better (Blood pressure improved after IV fluids. He is pleasantly confused now. Updated family. Remains full code. He is not having any chest pain or abdominal pain.), Resting Comfortably, No Complaints Nursing Reports: No Complaints, Confused Objective Vital Signs: Vital Signs - 24 hr 07/22/23 07/22/23 07/22/23 19:50 20:13 21:30 Temperature 37.0 C 38.8 C H Heart Rate 103 H 110 H Heart Rate [ Radial] Respiratory 20 18 18 Rate Blood Pressure 115/57 L 103/67 Blood Pressure [Brachial artery] Blood Pressure [Left Brachial artery] O2 Saturation 97 98 If not protocol : Oxygen Flow, liters/minute 07/22/23 07/22/23 07/22/23 22:48 22:58 23:25 Temperature 38.1 C H 38.1 C H Heart Rate 97 Heart Rate [ Radial] Respiratory 18 Rate Blood Pressure 90/73 Blood Pressure [Brachial artery] Blood Pressure [Left Brachial artery] O2 Saturation 96 If not protocol : Oxygen Flow, liters/minute 07/23/23 07/23/23 07/23/23 00:12 00:42 02:17 Temperature 37.2 C Heart Rate 86 68 Heart Rate [ Radial] Respiratory 18 18 Rate Blood Pressure 87/47 L 87/45 L Blood Pressure [Brachial artery] Blood Pressure [Left Brachial artery] O2 Saturation 91 L 94 If not protocol : Oxygen Flow, liters/minute 07/23/23 07/23/23 07/23/23 02:24 03:15 03:27 Temperature 36.8 C Heart Rate 67 79 Heart Rate [ Radial] Respiratory 18 18 Rate Blood Pressure 85/52 L 91/68 Blood Pressure [Brachial artery] Blood Pressure [Left Brachial artery] O2 Saturation 98 95 If not protocol : Oxygen Flow, liters/minute 07/23/23 07/23/23 07/23/23 03:39 03:43 03:46 Temperature 36.6 C Heart Rate Heart Rate [ 69 67 66 Radial] Respiratory 16 Rate Blood Pressure Blood Pressure 84/44 L 95/44 L [Brachial artery] Blood Pressure 95/44 L [Left Brachial artery] O2 Saturation 97 If not protocol 2 : Oxygen Flow, liters/minute 07/23/23 07/23/23 07/23/23 04:04 04:11 04:15 Temperature Heart Rate Heart Rate [ 66 58 L 64 Radial] Respiratory Rate Blood Pressure Blood Pressure 85/44 L 88/39 L 93/41 L [Brachial artery] Blood Pressure [Left Brachial artery] O2 Saturation If not protocol : Oxygen Flow, liters/minute 07/23/23 07/23/23 07/23/23 04:23 04:30 04:42 Temperature 36.6 C Heart Rate Heart Rate [ 60 63 61 Radial] Respiratory 16 Rate Blood Pressure Blood Pressure 90/41 L 88/42 L 79/47 L [Brachial artery] Blood Pressure [Left Brachial artery] O2 Saturation 93 If not protocol 2 : Oxygen Flow, liters/minute 07/23/23 07/23/23 07/23/23 05:11 05:14 05:19 Temperature Heart Rate Heart Rate [ 66 65 64 Radial] Respiratory Rate Blood Pressure Blood Pressure 85/39 L 85/45 L 88/47 L [Brachial artery] Blood Pressure [Left Brachial artery] O2 Saturation If not protocol : Oxygen Flow, liters/minute 07/23/23 07/23/23 07/23/23 05:43 05:47 05:55 Temperature Heart Rate Heart Rate [ 59 L Radial] Respiratory 18 Rate Blood Pressure Blood Pressure 117/67 97/52 L [Brachial artery] Blood Pressure 86/48 L [Left Brachial artery] O2 Saturation 92 If not protocol 4 : Oxygen Flow, liters/minute 07/23/23 07/23/23 07/23/23 06:00 06:02 06:13 Temperature Heart Rate Heart Rate [ 57 L 59 L 58 L Radial] Respiratory 14 15 15 Rate Blood Pressure Blood Pressure [Brachial artery] Blood Pressure 100/53 L 94/54 L 101/48 L [Left Brachial artery] O2 Saturation 94 95 96 If not protocol 4 4 4 : Oxygen Flow, liters/minute 07/23/23 07/23/23 07/23/23 06:15 06:24 07:03 Temperature 36.6 C Heart Rate Heart Rate [ 58 L 57 L 60 Radial] Respiratory 15 16 17 Rate Blood Pressure Blood Pressure [Brachial artery] Blood Pressure 88/49 L 96/50 L 95/49 L [Left Brachial artery] O2 Saturation 98 97 99 If not protocol 4 4 4 : Oxygen Flow, liters/minute 07/23/23 08:00 Temperature Heart Rate Heart Rate [ 62 Radial] Respiratory 13 Rate Blood Pressure Blood Pressure [Brachial artery] Blood Pressure 115/62 [Left Brachial artery] O2 Saturation 100 If not protocol 4 : Oxygen Flow, liters/minute Oxygen O2 Source Oxymask I&O (Last 24 Hrs): Intake and Output Totals x24h 07/21/23 07/22/23 07/23/23 23:59 23:59 23:59 Intake Total 550 3769.166 Output Total 300 Balance 250 3769.166 General: Alert, No acute distress Neuro: Disoriented, CN 2-12 Grossly Intact Cardiovascular: Regular rate, Normal S1, Normal S2, No murmurs Respiratory: Chest non-tender, No respiratory distress, Breath sounds nml Abdomen: Normal bowel sounds, Soft, No tenderness, Other (Notable hernia. Does not appear strangulated.) Extremities: No clubbing, No cyanosis, No edema, Normal pulses, No tenderness/swelling Skin: No rashes, No breakdown, No significant lesion - Results Results: Laboratory Results WBC 13.3 x10^3/uL (4.8-10.8) H 07/23/23 06:36 RBC 3.51 10^6/uL (4.70-6.10) L 07/23/23 06:36 Hgb 11.1 g/dL (14.0-18.0) L 07/23/23 06:36 Hct 34.1 % (42.0-52.0) L 07/23/23 06:36 MCV 97.2 fL (80.0-94.0) H 07/23/23 06:36 MCH 31.6 pg (27.0-31.0) H 07/23/23 06:36 MCHC 32.6 g/dL (32.0-36.0) 07/23/23 06:36 RDW 13.8 % (12.0-15.0) 07/23/23 06:36 Plt Count 123 10^3/uL (130-450) L 07/23/23 06:36 MPV 11.0 fL (7.4-11.4) 07/23/23 06:36 Neut # (Auto) 11.9 10^3/uL (1.5-6.6) H 07/23/23 06:36 Lymph # (Auto) 0.6 10^3/uL (1.5-3.5) L 07/23/23 06:36 [place] # (Auto) 0.7 10^3/uL (0.0-1.0) 07/23/23 06:36 Eos # (Auto) 0.0 10^3/uL (0.0-0.7) 07/23/23 06:36 Baso # (Auto) 0.1 10^3/uL (0.0-0.1) 07/23/23 06:36 Absolute Nucleated RBC 0.00 x10^3/uL 07/23/23 06:36 Nucleated RBC % 0.0 /100WBC 07/23/23 06:36 PT 12.4 secs (9.9-12.6) 07/22/23 17:42 INR (Fingerstick) 1.2 (0.8-1.2) 07/23/23 06:53 INR 1.2 (0.8-1.2) 07/22/23 17:42 Bld Gas Analysis Time 0455 07/23/23 04:55 Sample Site RIGHT RADIAL 07/23/23 04:55 ABG pH 7.36 (7.35-7.45) 07/23/23 04:55 ABG pCO2 35 mmHg (34-45) 07/23/23 04:55 ABG pO2 83 mmHg (80-100) 07/23/23 04:55 ABG HCO3 19.3 mmol/L (22.0-26.0) L 07/23/23 04:55 ABG Total CO2 20.3 MMOL/L (21.0-29.0) L 07/23/23 04:55 ABG O2 Saturation 95 % (94-98) 07/23/23 04:55 ABG Base Excess -5.5 mmol/L (-2.0-3.0) L 07/23/23 04:55 [place] Test POSITIVE 07/23/23 04:55 VBG pH 7.333 (7.31-7.41) 07/23/23 06:36 Ionized Calcium 1.06 mmol/L (1.15-1.33) L 07/23/23 06:36 O2 Delivery Device OXYMASK 07/23/23 04:55 O2 Liters/Min 4.00 LPM 07/23/23 04:55 FiO2 36.00 07/23/23 04:55 Sodium 145 mmol/L (135-145) 07/23/23 05:05 Potassium 2.0 mmol/L (3.5-4.5) L* 07/23/23 05:05 Chloride 126 mmol/L (101-111) H* 07/23/23 05:05 Carbon Dioxide 13 mmol/L (21-32) L 07/23/23 05:05 Anion Gap 6.0 (6-13) 07/23/23 05:05 BUN 20 mg/dL (6-20) 07/23/23 05:05 Creatinine 0.5 mg/dL (0.6-1.3) L 07/23/23 05:05 Estimated GFR (MDRD) 158 (>89) 07/23/23 05:05 Glucose 106 mg/dL (74-104) H 07/23/23 05:05 POC Whole Bld Glucose 110 mg/dL (70 - 100) H 07/23/23 12:16 Lactic Acid 2.5 mmol/L (0.5-2.2) H 07/23/23 05:32 Calcium 4.2 mg/dL (8.5-10.3) L* 07/23/23 05:05 Phosphorus 3.3 mg/dL (2.5-5.0) 07/23/23 06:38 Magnesium 1.6 mg/dL (1.7-2.3) L 07/23/23 06:38 Total Bilirubin 0.4 mg/dL (0.2-1.0) 07/23/23 05:05 AST 21 IU/L (10-42) 07/23/23 05:05 ALT 11 IU/L (10-60) 07/23/23 05:05 Alkaline Phosphatase 41 IU/L (42-121) L 07/23/23 05:05 B-Natriuretic Peptide 86 pg/mL (5-100) 07/22/23 20:04 Total Protein < 3.0 g/dL (6.4-8.9) L 07/23/23 05:05 Albumin 1.7 g/dL (3.2-5.5) L 07/23/23 05:05 Globulin TNP 07/23/23 05:05 Albumin/Globulin Ratio TNP 07/23/23 05:05 Lipase 14 U/L (11-82) 07/22/23 20:04 Urine Color YELLOW 07/22/23 21:28 Urine Clarity CLEAR (CLEAR) 07/22/23 21:28 Urine pH 6.0 PH (5.0-7.5) 07/22/23 21:28 Ur Specific [place] 1.025 (1.002-1.030) 07/22/23 21:28 Urine Protein >=300 mg/dL (NEGATIVE) H 07/22/23 21:28 Urine Glucose (UA) 100 mg/dL (NEGATIVE) H 07/22/23 21:28 Urine Ketones TRACE mg/dL (NEGATIVE) 07/22/23 21:28 Urine Occult Blood NEGATIVE (NEGATIVE) 07/22/23 21:28 Urine Nitrite NEGATIVE (NEGATIVE) 07/22/23 21:28 Urine Bilirubin NEGATIVE (NEGATIVE) 07/22/23 21:28 Urine Urobilinogen 4 E.U./dL (NORMAL) H 07/22/23 21:28 Ur Leukocyte Esterase NEGATIVE (NEGATIVE) 07/22/23 21:28 Urine RBC 0-5 /HPF (0-5) 07/22/23 21:28 Urine WBC 0-3 /HPF (0-3) 07/22/23 21:28 Ur Squamous Epith Cells FEW Squamous (<= Few) 07/22/23 21:28 Amorphous Sediment Few /LPF 07/22/23 21:28 Urine Bacteria Rare /HPF (None Seen) 07/22/23 21:28 Urine Casts 3-5 Hyaline Casts /LPF 07/22/23 21:28 Urine Mucus Moderate Strands 07/22/23 21:28 Ur Microscopic Review INDICATED 07/22/23 21:28 Urine Culture Comments NOT INDICATED 07/22/23 21:28 Nasal Adenovirus (PCR) NOT DETECTED 07/22/23 20:05 Nasal B. parapertussis DNA (PCR) NOT DETECTED 07/22/23 20:05 Nasal Coronavir 229E PCR NOT DETECTED 07/22/23 20:05 Nasal Coronavir HKU1 PCR NOT DETECTED 07/22/23 20:05 Nasal Coronavir NL63 PCR NOT DETECTED 07/22/23 20:05 Nasal Coronavir OC43 PCR NOT DETECTED 07/22/23 20:05 Nasal Enterovir/Rhinovir PCR NOT DETECTED 07/22/23 20:05 Nasal Influenza B PCR NOT DETECTED 07/22/23 20:05 Nasal Influenza A PCR NOT DETECTED 07/22/23 20:05 Nasal Parainfluen 1 PCR NOT DETECTED 07/22/23 20:05 Nasal Parainfluen 2 PCR NOT DETECTED 07/22/23 20:05 Nasal Parainfluen 3 PCR NOT DETECTED 07/22/23 20:05 Nasal Parainfluen 4 PCR NOT DETECTED 07/22/23 20:05 Nasal RSV (PCR) NOT DETECTED 07/22/23 20:05 Nasal B.pertussis DNA PCR NOT DETECTED 07/22/23 20:05 Nasal C.pneumoniae (PCR) NOT DETECTED 07/22/23 20:05 Isaac Human Metapneumo PCR NOT DETECTED 07/22/23 20:05 Nasal M.pneumoniae (PCR) NOT DETECTED 07/22/23 20:05 Nasal SARS-CoV-2 (PCR) NOT DETECTED 07/22/23 20:05 Blood Type A POSITIVE 07/23/23 06:36 Antibody Screen NEGATIVE 07/23/23 06:36 Crossmatch IS Only See Detail 07/23/23 06:36 Current Medications - Current Medications Current Medications: Active Medications Generic Name Dose Route Start Last Admin Trade Name Freq PRN Reason Stop Dose Admin Acetaminophen 650 mg 07/23/23 02:28 Acetaminophen 325 Mg Tablet PO Q6H PRN FEVER > 100.5 F Atorvastatin Calcium 40 mg 07/23/23 21:00 Atorvastatin 40 Mg Tablet PO QPM DAYANARA Sodium Chloride 1,000 mls @ 125 mls/hr 07/23/23 03:00 07/23/23 09:10 Normal Saline 0.9% IV 125 mls/hr .Q8H DAYANARA Administration Piperacillin Sod/Tazobactam 100 mls @ 200 mls/hr 07/23/23 03:00 07/23/23 09:57 Sod 3.375 gm/ Sodium Chloride IV Infused Q6H DAYANARA Infusion Vancomycin HCl 2 gm/ Sodium 500 mls @ 250 mls/hr 07/23/23 03:00 07/23/23 04:32 Chloride IV 07/24/23 02:59 250 mls/hr ONCE DAYANARA Administration Vancomycin HCl 1 gm/ Sodium 250 mls @ 167 mls/hr 07/23/23 15:00 Chloride IV Q12H DAYANARA Potassium Chloride 10 meq in 100 mls @ 100 mls/hr 07/23/23 08:00 07/23/23 12:52 Potassium Chloride IV 07/23/23 15:59 100 mls/hr Q1H DAYANARA Administration Protocol Insulin Human Lispro 1 - 5 unit 07/23/23 12:00 07/23/23 12:50 Insulin Lispro 300 Unit/3 Ml Pen SUBQ Not Given 0800,1200,1700,2100 [facility] Protocol Multivitamins 1 tab 07/24/23 08:00 Multivitamin Tablet PO DAILYWM [facility] Ondansetron HCl 4 mg 07/23/23 02:21 Ondansetron 4 Mg/2 Ml Vial IVP Q6HR PRN Nausea / Vomiting Pantoprazole Sodium 40 mg 07/23/23 09:00 07/23/23 09:27 Pantoprazole 40 Mg Vial IVP 40 mg BID DAYANARA Administration Sodium Chloride 10 ml 07/23/23 02:21 Sodium Chloride Flush 0.9% 10 Ml Syringe IVP PRN PRN NEEDED PER PROVIDER ORDERS Sodium Chloride 10 ml 07/23/23 09:00 07/23/23 03:57 Sodium Chloride Flush 0.9% 10 Ml Syringe IVP 10 ml 0100,0900,1700 [facility] Administration Imipramine HCl 100 mg PO HS 01/11/13 Metformin HCl 1,000 mg PO BID 01/11/13 Clopidogrel [Plavix] 75 mg PO DAILY 09/06/22 Losartan Potassium 25 mg PO DAILY 09/06/22 Multivitamin 1 each PO DAILY 01/13/23 Acetaminophen [Tylenol] 650 mg PO TID 07/23/23 Atorvastatin Calcium 40 mg PO QPM 07/23/23 Diclofenac Sodium 1% Gel [Voltaren Gel] 2 gm TOP BID 07/23/23 carvediloL [Coreg] 6.25 mg PO BID 07/23/23
[2023-07-23] MEDS: HALOPERIDOL 5 MG/ML VIAL IM PRN (13:59)
[2023-07-23] MEDS: VANCOMYCIN INJ 1 GM in SODIUM CHLORIDE 0.9% 250 ML IV SCH (15:37)
[2023-07-23] MEDS ORDERED: HALOPERIDOL 5 MG/ML VIAL IM ONE (18:43)
[2023-07-23] MEDS: ATORVASTATIN 40 MG TABLET PO SCH (20:51)
[2023-07-23] MEDS: SODIUM CHLORIDE FLUSH 0.9% 10 ML SYRINGE IVP PRN (20:51)
[2023-07-24] MEDS: SODIUM CHLORIDE FLUSH 0.9% 10 ML SYRINGE IVP SCH ×4 (00:18→20:13)
[2023-07-24] MEDS: SODIUM CHLORIDE FLUSH 0.9% 10 ML SYRINGE IVP PRN (02:52)
[2023-07-24] MEDS: PIPERACILLIN/TAZOBACTAM 3.375 GM in SODIUM CHLORIDE 0.9% MINIBAG 100 ML IV SCH (02:52)
[2023-07-24] MEDS: VANCOMYCIN INJ 1 GM in SODIUM CHLORIDE 0.9% 250 ML IV SCH (03:43)
[2023-07-24 05:33] LABS: BASOPHILS # (AUTO) 0.1 10^3/uL (0.0-0.1); BASOPHILS % (AUTO) 0.5 %; EOSINOPHILS % (AUTO) 0.4 %; HCT - HEMATOCRIT 36.5 % (42.0-52.0); HGB - HEMOGLOBIN 12.1 g/dL (14.0-18.0); LYMPHOCYTES # (AUTO) 0.6 10^3/uL (1.5-3.5); LYMPHOCYTES % (AUTO) 6.2 %; MEAN CORPUSCULAR HEMOGLOBIN 31.3 pg (27.0-31.0); MEAN CORPUSCULAR HGB CONC 33.2 g/dL (32.0-36.0); MEAN CORPUSCULAR VOLUME 94.6 fL (80.0-94.0); MEAN PLATELET VOLUME 11.4 fL (7.4-11.4); MONOCYTES # (AUTO) 0.8 10^3/uL (0.0-1.0); MONOCYTES % (AUTO) 7.8 %; NEUTROPHILS # (AUTO) 8.1 10^3/uL (1.5-6.6); NEUTROPHILS % (AUTO) 84.6 %; PLT - PLATELET COUNT 131 10^3/uL (130-450); RED BLOOD COUNT 3.86 10^6/uL (4.70-6.10); RED CELL DISTRIBUTION WIDTH 13.5 % (12.0-15.0); WHITE BLOOD COUNT 9.6 x10^3/uL (4.8-10.8)
[2023-07-24 07:06] LABS: ALBUMIN 3.2 g/dL (3.2-5.5); ALBUMIN/GLOBULIN RATIO 1.6 (1.0-2.2); BILIRUBIN,TOTAL 0.8 mg/dL (0.2-1.0); CREATININE 0.8 mg/dL (0.6-1.3); MAGNESIUM 1.7 mg/dL (1.7-2.3); PHOSPHORUS 2.3 mg/dL (2.5-5.0); POTASSIUM 3.8 mmol/L (3.5-4.5); TOTAL PROTEIN 5.2 g/dL (6.4-8.9)
[2023-07-24 07:13] LABS: CALCIUM, IONIZED 1.1 mmol/L (1.15-1.33); VBG PH 7.327 (7.31-7.41)
[2023-07-24] MEDS ORDERED: MAGNESIUM SULFATE 2 GRAM 2 GM/50 ML BAG IV ONE ×2 (07:27→17:10)
[2023-07-24] MEDS ORDERED: CALCIUM GLUC 1,000MG/50ML-NACL 1,000 MG/50 ML BAG IV ONE (07:27)
[2023-07-24] MEDS ORDERED: POTASSIUM CHLORIDE 20 MEQ/15 ML UDC PO ONE (07:27)
[2023-07-24] MEDS: INSULIN LISPRO 300 UNIT/3 ML PEN SUBQ SCH ×4 (07:49→20:12)
[2023-07-24] MEDS: NEUTRA-PHOS 250 MG TABLET PO SCH ×4 (07:50→19:46)
[2023-07-24] MEDS: MULTIVITAMIN TABLET PO SCH (07:51)
[2023-07-24] MEDS: PANTOPRAZOLE 40 MG TABLET PO SCH ×2 (07:51→17:56)
[2023-07-24 07:54] LABS: ESTIMATED AVERAGE GLUCOSE 151 mg/dL (70-100); HEMOGLOBIN A1c% 6.9 % (4.27-6.07)
[2023-07-24] MEDS ORDERED: cefTRIAXone 2 GM VIAL IVP SCH (09:00)
[2023-07-24] MEDS: cefTRIAXone 2 GM in SODIUM CHLORIDE 0.9% MINIBAG 100 ML IV SCH (09:04)
--- NOTE | 2023-07-24 11:47 | PROVIDER PROGRESS NOTE ---
Assessment/Plan - Problem List (1) Bacteremia due to Streptococcus Assessment/Plan: --Blood cultures positive for Streptococcus. Repeat blood cultures ordered. --Transitioned to ceftriaxone monotherapy. --TTE is currently pending to rule out IE. --Exact source is unknown. He does not have any obvious skin sources. No evidence of pneumonia on chest XR. --Does not appear to have toxic shock syndrome. Will hold off on adding Clindamycin. (1) Shock circulatory Assessment/Plan: -- Shock has resolved. He ultimately did not require vasopressor medication. --Exact etiology of his hypotension was initially unknown. Initially believed to be hemorrhagic shock however his hemoglobin was likely inaccurate as it improved on recheck. Likely due to sepsis from bacteremia. --No source of infection has been found on chest x-ray. Patient does have a history of an umbilical hernia but this does not appear incarcerated. -- Viral PCR negative. (2) SIRS (systemic inflammatory response syndrome) Assessment/Plan: -- Continue IV ceftriaxone --Blood cultures currently pending as above. Growing strep. --Chest x-ray unremarkable. (3) Acute metabolic encephalopathy Assessment/Plan: -- Patient does have dementia at baseline however he was significantly more somnolent on admission. --Correcting electrolytes. --CT head negative for any acute findings. -- Mental status is improving. -- I do not suspect meningitis. (4) CAD (coronary artery disease) Assessment/Plan: -- Patient has not had any intervention in the past year. --On telemetry. --No EKG or troponin on admission. --No prior TTE in the chart. Will order an echo to r/o wall motion abnormalities and IE. --Restart Plavix. --Continue statin. (5) HTN (hypertension) Assessment/Plan: --Holding all home antihypertensives due to low blood pressures. (6) DM2 (diabetes mellitus, type 2) Assessment/Plan: --A1c pending. --SSI insulin. (7) Dementia Assessment/Plan: -- Resides in a dementia unit. Will await family arrival to determine if patient's current mental status is at baseline. -- He is pleasantly confused but is prone to sundowning and agitation. --Haldol 5 mg IM is ordered. (8) Abdominal hernia Assessment/Plan: --Patient has an abdominal hernia. Per family he was not cleared for surgery by Cardiology. --Does not appear strangulated or tender. Dispo: Severe sepsis secondary to bacteremia. Continue IV ceftriaxone. Working up etiology. He has dementia and is prone to sundowning. - Current Meds Current Meds: Current Medications Generic Name Dose Route Start Last Admin Trade Name Freq PRN Reason Stop Dose Admin Atorvastatin Calcium 40 mg 07/23/23 21:00 07/23/23 20:51 Atorvastatin 40 Mg Tablet PO 40 mg QPM DAYANARA Administration Haloperidol 5 mg 07/23/23 13:50 07/23/23 13:59 Haloperidol 5 Mg/Ml Vial IM 5 mg Q6H PRN Administration Agitation Ceftriaxone Sodium 2 gm/ 100 mls @ 200 mls/hr 07/24/23 09:00 07/24/23 09:52 Sodium Chloride IV 08/06/23 08:59 Infused DAILY DAYANARA Infusion Insulin Human Lispro 1 - 9 unit 07/24/23 08:00 07/24/23 07:49 Insulin Lispro 300 Unit/3 Ml Pen SUBQ Not Given 0800,1200,1700,2100 [facility] Protocol Multivitamins 1 tab 07/24/23 08:00 07/24/23 07:51 Multivitamin Tablet PO 1 tab DAILYWM DAYANARA Administration Pantoprazole Sodium 40 mg 07/24/23 08:00 07/24/23 07:51 Pantoprazole 40 Mg Tablet PO 40 mg BIDAC DAYANARA Administration Sodium Chloride 10 ml 07/23/23 02:21 07/24/23 02:52 Sodium Chloride Flush 0.9% 10 Ml Syringe IVP 10 ml PRN PRN Administration NEEDED PER PROVIDER ORDERS Sodium Chloride 10 ml 07/23/23 09:00 07/24/23 09:22 Sodium Chloride Flush 0.9% 10 Ml Syringe IVP 10 ml 0100,0900,1700 DAYANARA Administration - Lab Result Fish Bone Diagrams: 07/24/23 04:21 07/24/23 04:21 - Additional Planning My Orders: My Active Orders 07/23/23 Lunch Regular Diet [DIET] 07/23/23 11:20 Blood Glucose Checks - Eating [RC] 0800,1200,1700,2100 Initiate Hypoglycemia Protocol [RC] .protocol 07/23/23 13:16 Echo Transthoracic Complete [ECHO] Routine 07/23/23 13:50 Haloperidol Inj [Haldol Inj] 5 mg IM Q6H PRN 07/23/23 18:43 IO [RC] IOSHIFT 07/23/23 21:00 Atorvastatin [Lipitor] 40 mg PO QPM 07/24/23 Evaluate and Treat OT [OT] Routine Evaluate and Treat PT [PT] Routine 07/24/23 08:00 Multivitamin [Theragran] 1 tab PO DAILYWM Pantoprazole [Protonix] 40 mg PO BIDAC 07/24/23 09:00 cefTRIAXone [Rocephin] 2 gm Sodium Chloride 0.9% Minibag [Normal Saline 0.9% Minibag] 100 ml IV DAILY 07/24/23 09:14 Blood Culture [CULTURE, BLOOD #1] [RM] Routine 07/24/23 09:18 Blood Culture [CULTURE, BLOOD #2] [RM] Routine 07/25/23 05:00 CBC - COMP BLD CT W/AUTO DIFF [HEME] DAILYLAB COMPREHENSIVE METABOLIC PANEL [CHEM] DAILYLAB 07/26/23 05:00 CBC - COMP BLD CT W/AUTO DIFF [HEME] DAILYLAB COMPREHENSIVE METABOLIC PANEL [CHEM] DAILYLAB 07/27/23 05:00 CBC - COMP BLD CT W/AUTO DIFF [HEME] DAILYLAB COMPREHENSIVE METABOLIC PANEL [CHEM] DAILYLAB 07/28/23 05:00 CBC - COMP BLD CT W/AUTO DIFF [HEME] DAILYLAB COMPREHENSIVE METABOLIC PANEL [CHEM] DAILYLAB 07/29/23 05:00 CBC - COMP BLD CT W/AUTO DIFF [HEME] DAILYLAB COMPREHENSIVE METABOLIC PANEL [CHEM] DAILYLAB 07/30/23 05:00 CBC - COMP BLD CT W/AUTO DIFF [HEME] DAILYLAB COMPREHENSIVE METABOLIC PANEL [CHEM] DAILYLAB Subjective - Subjective Patient Reports: Feeling Better, Resting Comfortably, No Complaints, Other (Baseline mental status.) Objective Vital Signs: Vital Signs - 24 hr 07/23/23 07/23/23 07/23/23 12:00 13:00 14:00 Temperature Heart Rate [ 62 63 82 Radial] Respiratory 22 20 26 H Rate Blood Pressure 106/69 105/66 117/86 H [Left Brachial artery] O2 Saturation 96 96 95 07/23/23 07/23/23 07/23/23 15:00 16:00 17:00 Temperature 36.3 C L Heart Rate [ 74 69 64 Radial] Respiratory 15 20 21 Rate Blood Pressure 106/71 110/79 108/74 [Left Brachial artery] O2 Saturation 95 97 92 07/23/23 07/24/23 07/24/23 23:00 05:00 08:18 Temperature 36.6 C 36.7 C 36.8 C Heart Rate [ 66 65 81 Radial] Respiratory 19 19 20 Rate Blood Pressure 114/58 L 143/82 H 133/72 H [Left Brachial artery] O2 Saturation 95 92 93 Oxygen O2 Source Room air I&O (Last 24 Hrs): Intake and Output Totals x24h 07/22/23 07/23/23 07/24/23 23:59 23:59 23:59 Intake Total 550 6394.166 910 Output Total 300 100 Balance 250 6294.166 910 General: Alert, No acute distress HEENT: Atraumatic, PERRLA, EOMI Neuro: Alert, Disoriented, CN 2-12 Grossly Intact Cardiovascular: Regular rate, Normal S1, Normal S2 Respiratory: Chest non-tender, No respiratory distress, Breath sounds nml Abdomen: Normal bowel sounds, Soft, No tenderness Extremities: No clubbing, No cyanosis, No edema, Normal pulses, No tenderness/swelling Skin: No rashes, No breakdown, No significant lesion - Results Results: Laboratory Results WBC 9.6 x10^3/uL (4.8-10.8) 07/24/23 04:21 RBC 3.86 10^6/uL (4.70-6.10) L 07/24/23 04:21 Hgb 12.1 g/dL (14.0-18.0) L 07/24/23 04:21 Hct 36.5 % (42.0-52.0) L 07/24/23 04:21 MCV 94.6 fL (80.0-94.0) H 07/24/23 04:21 MCH 31.3 pg (27.0-31.0) H 07/24/23 04:21 MCHC 33.2 g/dL (32.0-36.0) 07/24/23 04:21 RDW 13.5 % (12.0-15.0) 07/24/23 04:21 Plt Count 131 10^3/uL (130-450) 07/24/23 04:21 MPV 11.4 fL (7.4-11.4) 07/24/23 04:21 Neut # (Auto) 8.1 10^3/uL (1.5-6.6) H 07/24/23 04:21 Lymph # (Auto) 0.6 10^3/uL (1.5-3.5) L 07/24/23 04:21 [place] # (Auto) 0.8 10^3/uL (0.0-1.0) 07/24/23 04:21 Eos # (Auto) 0.0 10^3/uL (0.0-0.7) 07/24/23 04:21 Baso # (Auto) 0.1 10^3/uL (0.0-0.1) 07/24/23 04:21 Absolute Nucleated RBC 0.00 x10^3/uL 07/24/23 04:21 Nucleated RBC % 0.0 /100WBC 07/24/23 04:21 PT 12.4 secs (9.9-12.6) 07/22/23 17:42 INR (Fingerstick) 1.2 (0.8-1.2) 07/23/23 06:53 INR 1.2 (0.8-1.2) 07/22/23 17:42 Bld Gas Analysis Time 0455 07/23/23 04:55 Sample Site RIGHT RADIAL 07/23/23 04:55 ABG pH 7.36 (7.35-7.45) 07/23/23 04:55 ABG pCO2 35 mmHg (34-45) 07/23/23 04:55 ABG pO2 83 mmHg (80-100) 07/23/23 04:55 ABG HCO3 19.3 mmol/L (22.0-26.0) L 07/23/23 04:55 ABG Total CO2 20.3 MMOL/L (21.0-29.0) L 07/23/23 04:55 ABG O2 Saturation 95 % (94-98) 07/23/23 04:55 ABG Base Excess -5.5 mmol/L (-2.0-3.0) L 07/23/23 04:55 [place] Test POSITIVE 07/23/23 04:55 VBG pH 7.327 (7.31-7.41) 07/24/23 04:21 Ionized Calcium 1.10 mmol/L (1.15-1.33) L 07/24/23 04:21 O2 Delivery Device OXYMASK 07/23/23 04:55 O2 Liters/Min 4.00 LPM 07/23/23 04:55 FiO2 36.00 07/23/23 04:55 Sodium 136 mmol/L (135-145) 07/24/23 04:21 Potassium 3.8 mmol/L (3.5-4.5) 07/24/23 04:21 Chloride 108 mmol/L (101-111) 07/24/23 04:21 Carbon Dioxide 20 mmol/L (21-32) L 07/24/23 04:21 Anion Gap 8.0 (6-13) 07/24/23 04:21 BUN 22 mg/dL (6-20) H 07/24/23 04:21 Creatinine 0.8 mg/dL (0.6-1.3) 07/24/23 04:21 Estimated GFR (MDRD) 92 (>89) 07/24/23 04:21 Glucose 120 mg/dL (74-104) H 07/24/23 04:21 POC Whole Bld Glucose 108 mg/dL (70 - 100) H 07/24/23 07:42 Estimat Average Glucose 151 mg/dL (70-100) H 07/23/23 06:36 Hemoglobin A1c % 6.9 % (4.27-6.07) H 07/23/23 06:36 Lactic Acid 2.2 mmol/L (0.5-2.2) 07/23/23 12:08 Calcium 8.0 mg/dL (8.5-10.3) L 07/24/23 04:21 Phosphorus 2.3 mg/dL (2.5-5.0) L 07/24/23 04:21 Magnesium 1.7 mg/dL (1.7-2.3) 07/24/23 04:21 Total Bilirubin 0.8 mg/dL (0.2-1.0) 07/24/23 04:21 AST 38 IU/L (10-42) 07/24/23 04:21 ALT 23 IU/L (10-60) 07/24/23 04:21 Alkaline Phosphatase 88 IU/L (42-121) 07/24/23 04:21 B-Natriuretic Peptide 86 pg/mL (5-100) 07/22/23 20:04 Total Protein 5.2 g/dL (6.4-8.9) L 07/24/23 04:21 Albumin 3.2 g/dL (3.2-5.5) 07/24/23 04:21 Globulin 2.0 g/dL (2.1-4.2) L 07/24/23 04:21 Albumin/Globulin Ratio 1.6 (1.0-2.2) 07/24/23 04:21 Lipase 14 U/L (11-82) 07/22/23 20:04 Procalcitonin Immunoas 11.21 ng/mL (<0.5) H* 07/24/23 09:18 Urine Color YELLOW 07/22/23 21:28 Urine Clarity CLEAR (CLEAR) 07/22/23 21:28 Urine pH 6.0 PH (5.0-7.5) 07/22/23 21:28 Ur Specific [place] 1.025 (1.002-1.030) 07/22/23 21:28 Urine Protein >=300 mg/dL (NEGATIVE) H 07/22/23 21:28 Urine Glucose (UA) 100 mg/dL (NEGATIVE) H 07/22/23 21:28 Urine Ketones TRACE mg/dL (NEGATIVE) 07/22/23 21:28 Urine Occult Blood NEGATIVE (NEGATIVE) 07/22/23 21:28 Urine Nitrite NEGATIVE (NEGATIVE) 07/22/23 21:28 Urine Bilirubin NEGATIVE (NEGATIVE) 07/22/23 21:28 Urine Urobilinogen 4 E.U./dL (NORMAL) H 07/22/23 21:28 Ur Leukocyte Esterase NEGATIVE (NEGATIVE) 07/22/23 21:28 Urine RBC 0-5 /HPF (0-5) 07/22/23 21:28 Urine WBC 0-3 /HPF (0-3) 07/22/23 21:28 Ur Squamous Epith Cells FEW Squamous (<= Few) 07/22/23 21:28 Amorphous Sediment Few /LPF 07/22/23 21:28 Urine Bacteria Rare /HPF (None Seen) 07/22/23 21:28 Urine Casts 3-5 Hyaline Casts /LPF 07/22/23 21:28 Urine Mucus Moderate Strands 07/22/23 21:28 Ur Microscopic Review INDICATED 07/22/23 21:28 Urine Culture Comments NOT INDICATED 07/22/23 21:28 Nasal Adenovirus (PCR) NOT DETECTED 07/22/23 20:05 Nasal B. parapertussis DNA (PCR) NOT DETECTED 07/22/23 20:05 Nasal Coronavir 229E PCR NOT DETECTED 07/22/23 20:05 Nasal Coronavir HKU1 PCR NOT DETECTED 07/22/23 20:05 Nasal Coronavir NL63 PCR NOT DETECTED 07/22/23 20:05 Nasal Coronavir OC43 PCR NOT DETECTED 07/22/23 20:05 Nasal Enterovir/Rhinovir PCR NOT DETECTED 07/22/23 20:05 Nasal Influenza B PCR NOT DETECTED 07/22/23 20:05 Nasal Influenza A PCR NOT DETECTED 07/22/23 20:05 Nasal Parainfluen 1 PCR NOT DETECTED 07/22/23 20:05 Nasal Parainfluen 2 PCR NOT DETECTED 07/22/23 20:05 Nasal Parainfluen 3 PCR NOT DETECTED 07/22/23 20:05 Nasal Parainfluen 4 PCR NOT DETECTED 07/22/23 20:05 Nasal RSV (PCR) NOT DETECTED 07/22/23 20:05 Nasal Screen MRSA (PCR) NEGATIVE (NEGATIVE) 07/23/23 11:55 Nasal B.pertussis DNA PCR NOT DETECTED 07/22/23 20:05 Nasal C.pneumoniae (PCR) NOT DETECTED 07/22/23 20:05 Isaac Human Metapneumo PCR NOT DETECTED 07/22/23 20:05 Nasal M.pneumoniae (PCR) NOT DETECTED 07/22/23 20:05 Nasal SARS-CoV-2 (PCR) NOT DETECTED 07/22/23 20:05 Blood Type A POSITIVE 07/23/23 06:36 Antibody Screen NEGATIVE 07/23/23 06:36 Crossmatch IS Only See Detail 07/23/23 06:36 Sepsis Event Note (H) - Evaluation Current Stage of Sepsis: Sepsis Possible source of Sepsis: positive: Other Confirmed Source and Organism (if known) of Sepsis: Blood - Sepsis Criteria Sepsis Criteria: SPIRAL B[employer]ER: altered consciousness (unrelated to primary neuro pathology), SBP less than 90 mmHg, Metabolic: lactate > 2 mmol/L Current Medications - Current Medications Current Medications: Active Medications Generic Name Dose Route Start Last Admin Trade Name Freq PRN Reason Stop Dose Admin Acetaminophen 650 mg 07/23/23 02:28 Acetaminophen 325 Mg Tablet PO Q6H PRN FEVER > 100.5 F Atorvastatin Calcium 40 mg 07/23/23 21:00 07/23/23 20:51 Atorvastatin 40 Mg Tablet PO 40 mg QPM DAYANARA Administration Clopidogrel Bisulfate 75 mg 07/24/23 12:00 Clopidogrel 75 Mg Tablet PO DAILY [facility] Haloperidol 5 mg 07/23/23 13:50 07/23/23 13:59 Haloperidol 5 Mg/Ml Vial IM 5 mg Q6H PRN Administration Agitation Ceftriaxone Sodium 2 gm/ 100 mls @ 200 mls/hr 07/24/23 09:00 07/24/23 09:52 Sodium Chloride IV 08/06/23 08:59 Infused DAILY [facility] Infusion Insulin Human Lispro 1 - 9 unit 07/24/23 08:00 07/24/23 07:49 Insulin Lispro 300 Unit/3 Ml Pen SUBQ Not Given 0800,1200,1700,2100 [facility] Protocol Multivitamins 1 tab 07/24/23 08:00 07/24/23 07:51 Multivitamin Tablet PO 1 tab DAILYWM DAYANARA Administration Ondansetron HCl 4 mg 07/23/23 02:21 Ondansetron 4 Mg/2 Ml Vial IVP Q6HR PRN Nausea / Vomiting Pantoprazole Sodium 40 mg 07/24/23 08:00 07/24/23 07:51 Pantoprazole 40 Mg Tablet PO 40 mg BIDAC DAYANARA Administration Sodium Chloride 10 ml 07/23/23 02:21 07/24/23 02:52 Sodium Chloride Flush 0.9% 10 Ml Syringe IVP 10 ml PRN PRN Administration NEEDED PER PROVIDER ORDERS Sodium Chloride 10 ml 07/23/23 09:00 07/24/23 09:22 Sodium Chloride Flush 0.9% 10 Ml Syringe IVP 10 ml 0100,0900,1700 DAYANARA Administration Imipramine HCl 100 mg PO HS 01/11/13 Metformin HCl 1,000 mg PO BID 01/11/13 Clopidogrel [Plavix] 75 mg PO DAILY 09/06/22 Losartan Potassium 25 mg PO DAILY 09/06/22 Multivitamin 1 each PO DAILY 01/13/23 Acetaminophen [Tylenol] 650 mg PO TID 07/23/23 Atorvastatin Calcium 40 mg PO QPM 07/23/23 Diclofenac Sodium 1% Gel [Voltaren Gel] 2 gm TOP BID 07/23/23 carvediloL [Coreg] 6.25 mg PO BID 07/23/23
[2023-07-24] MEDS: CLOPIDOGREL 75 MG TABLET PO SCH (12:08)
[2023-07-24] MEDS: HALOPERIDOL 5 MG/ML VIAL IM PRN ×2 (14:41→20:13)
[2023-07-24 15:37] LABS: CALCIUM, IONIZED 1.15 mmol/L (1.15-1.33); VBG PH 7.436 (7.31-7.41)
[2023-07-24 16:37] LABS: MAGNESIUM 1.7 mg/dL (1.7-2.3); POTASSIUM 4.1 mmol/L (3.5-4.5)
[2023-07-24] MEDS: MAGNESIUM SULFATE 2 GRAM 2 GM/50 ML BAG IV ONE (17:56)
[2023-07-24] MEDS: ATORVASTATIN 40 MG TABLET PO SCH (20:42)
[2023-07-25 05:37] LABS: BASOPHILS % (AUTO) 0.5 %; EOSINOPHILS % (AUTO) 0.4 %; HCT - HEMATOCRIT 42.7 % (42.0-52.0); HGB - HEMOGLOBIN 14.4 g/dL (14.0-18.0); LYMPHOCYTES # (AUTO) 0.7 10^3/uL (1.5-3.5); LYMPHOCYTES % (AUTO) 8.6 %; MEAN CORPUSCULAR HEMOGLOBIN 30.6 pg (27.0-31.0); MEAN CORPUSCULAR HGB CONC 33.7 g/dL (32.0-36.0); MEAN CORPUSCULAR VOLUME 90.9 fL (80.0-94.0); MONOCYTES # (AUTO) 0.7 10^3/uL (0.0-1.0); MONOCYTES % (AUTO) 9.3 %; NEUTROPHILS # (AUTO) 6.1 10^3/uL (1.5-6.6); NEUTROPHILS % (AUTO) 80.9 %; PLT - PLATELET COUNT 170 10^3/uL (130-450); RED CELL DISTRIBUTION WIDTH 13.2 % (12.0-15.0); WHITE BLOOD COUNT 7.5 x10^3/uL (4.8-10.8)
[2023-07-25 05:59] LABS: ALBUMIN 3.6 g/dL (3.2-5.5); ALBUMIN/GLOBULIN RATIO 1.3 (1.0-2.2); BILIRUBIN,TOTAL 0.5 mg/dL (0.2-1.0); CALCIUM 8.8 mg/dL (8.5-10.3); CREATININE 0.6 mg/dL (0.6-1.3); MAGNESIUM 1.7 mg/dL (1.7-2.3); PHOSPHORUS 3.2 mg/dL (2.5-5.0); POTASSIUM 3.8 mmol/L (3.5-4.5); TOTAL PROTEIN 6.3 g/dL (6.4-8.9)
[2023-07-25 06:13] LABS: CALCIUM, IONIZED 1.11 mmol/L (1.15-1.33); VBG PH 7.455 (7.31-7.41)
[2023-07-25] MEDS ORDERED: MAGNESIUM SULFATE 2 GRAM 2 GM/50 ML BAG IV ONE ×2 (06:32→19:38)
[2023-07-25] MEDS ORDERED: CALCIUM GLUC 1,000MG/50ML-NACL 1,000 MG/50 ML BAG IV ONE (06:32)
[2023-07-25] MEDS: PANTOPRAZOLE 40 MG TABLET PO SCH ×2 (06:41→16:07)
[2023-07-25] MEDS: SODIUM CHLORIDE FLUSH 0.9% 10 ML SYRINGE IVP PRN (06:49)
[2023-07-25] MEDS ORDERED: POTASSIUM CHLORIDE 20 MEQ TABLET PO ONE ×2 (08:00→11:32)
[2023-07-25] MEDS: INSULIN LISPRO 300 UNIT/3 ML PEN SUBQ SCH ×4 (08:22→20:21)
[2023-07-25] MEDS: SODIUM CHLORIDE FLUSH 0.9% 10 ML SYRINGE IVP SCH ×3 (08:26→22:51)
[2023-07-25] MEDS: CLOPIDOGREL 75 MG TABLET PO SCH (08:26)
[2023-07-25] MEDS: MULTIVITAMIN TABLET PO SCH (08:26)
[2023-07-25] MEDS: cefTRIAXone 2 GM in SODIUM CHLORIDE 0.9% MINIBAG 100 ML IV SCH (08:40)
[2023-07-25 12:29] LABS: CALCIUM, IONIZED 1.16 mmol/L (1.15-1.33); VBG PH 7.477 (7.31-7.41)
[2023-07-25 12:40] LABS: MAGNESIUM 1.8 mg/dL (1.7-2.3)
[2023-07-25] MEDS ORDERED: HALOPERIDOL 5 MG/ML VIAL IM PRN (13:22)
--- NOTE | 2023-07-25 13:30 | PROVIDER PROGRESS NOTE ---
Subjective - Subjective Pt reports feeling: Worse (Still very somnolent, minimally communicative) Objective - Vital Signs/Intake & Output Vital Signs: Vital Signs Temp Pulse Resp BP Pulse Ox 07/25/23 09:57 36.4 C L 72 17 158/70 H 95 Intake & Output: Intake & Output 07/22/23 07/23/23 07/24/23 07/25/23 23:59 23:59 23:59 23:59 Intake Total 550 6394.166 1390 750 Output Total 300 100 300 Balance 250 6294.166 1390 450 - Objective General Appearance: positive: Lethargic (Awakens, mi imally communicative, slow to follow comands) Eyes Bilateral: positive: Normal inspection ENT: positive: No signs of dehydration Neck: positive: Nml inspection, No JVD Respiratory: positive: No respiratory distress, Breath sounds nml Cardiovascular: positive: Regular rate & rhythm, No murmur Abdomen: positive: Non-tender, Nml bowel sounds, No distention Skin: positive: Warm, Dry Extremities: positive: Non-tender, No pedal edema Neurologic/Psychiatric: positive: Other (Lethargic, moves all extrem spont, minimally communicative) - Lab Results Fish Bones: 07/25/23 04:37 07/25/23 12:13 Other Labs: Lab Results x24hrs 07/25/23 07/25/23 07/25/23 Range/Units 12:20 12:13 12:13 WBC (4.8-10.8) x10^3/uL RBC (4.70-6.10) 10^6/uL Hgb (14.0-18.0) g/dL Hct (42.0-52.0) % MCV (80.0-94.0) fL MCH (27.0-31.0) pg MCHC (32.0-36.0) g/dL RDW (12.0-15.0) % Plt Count (130-450) 10^3/uL MPV (7.4-11.4) fL Neut # (Auto) (1.5-6.6) 10^3/uL Lymph # (Auto) (1.5-3.5) 10^3/uL Lane # (Auto) (0.0-1.0) 10^3/uL Eos # (Auto) (0.0-0.7) 10^3/uL Baso # (Auto) (0.0-0.1) 10^3/uL Absolute Nucleated RBC x10^3/uL Nucleated RBC % /100WBC VBG pH 7.477 H (7.31-7.41) Ionized Calcium 1.16 (1.15-1.33) mmol/L Sodium (135-145) mmol/L Potassium 4.0 (3.5-4.5) mmol/L Chloride (101-111) mmol/L Carbon Dioxide (21-32) mmol/L Anion Gap (6-13) BUN (6-20) mg/dL Creatinine (0.6-1.3) mg/dL Estimated GFR (MDRD) (>89) Glucose (74-104) mg/dL POC Whole Bld Glucose 188 H (70 - 100) mg/dL Calcium (8.5-10.3) mg/dL Phosphorus (2.5-5.0) mg/dL Magnesium 1.8 (1.7-2.3) mg/dL Total Bilirubin (0.2-1.0) mg/dL AST (10-42) IU/L ALT (10-60) IU/L Alkaline Phosphatase (42-121) IU/L Total Protein (6.4-8.9) g/dL Albumin (3.2-5.5) g/dL Globulin (2.1-4.2) g/dL Albumin/Globulin Ratio (1.0-2.2) 07/25/23 07/25/23 07/25/23 Range/Units 11:22 08:03 04:37 WBC (4.8-10.8) x10^3/uL RBC (4.70-6.10) 10^6/uL Hgb (14.0-18.0) g/dL Hct (42.0-52.0) % MCV (80.0-94.0) fL MCH (27.0-31.0) pg MCHC (32.0-36.0) g/dL RDW (12.0-15.0) % Plt Count (130-450) 10^3/uL MPV (7.4-11.4) fL Neut # (Auto) (1.5-6.6) 10^3/uL Lymph # (Auto) (1.5-3.5) 10^3/uL Lane # (Auto) (0.0-1.0) 10^3/uL Eos # (Auto) (0.0-0.7) 10^3/uL Baso # (Auto) (0.0-0.1) 10^3/uL Absolute Nucleated RBC x10^3/uL Nucleated RBC % /100WBC VBG pH 7.455 H (7.31-7.41) Ionized Calcium 1.11 L (1.15-1.33) mmol/L Sodium (135-145) mmol/L Potassium (3.5-4.5) mmol/L Chloride (101-111) mmol/L Carbon Dioxide (21-32) mmol/L Anion Gap (6-13) BUN (6-20) mg/dL Creatinine (0.6-1.3) mg/dL Estimated GFR (MDRD) (>89) Glucose (74-104) mg/dL POC Whole Bld Glucose 200 H 236 H (70 - 100) mg/dL Calcium (8.5-10.3) mg/dL Phosphorus (2.5-5.0) mg/dL Magnesium (1.7-2.3) mg/dL Total Bilirubin (0.2-1.0) mg/dL AST (10-42) IU/L ALT (10-60) IU/L Alkaline Phosphatase (42-121) IU/L Total Protein (6.4-8.9) g/dL Albumin (3.2-5.5) g/dL Globulin (2.1-4.2) g/dL Albumin/Globulin Ratio (1.0-2.2) 07/25/23 07/25/23 07/25/23 Range/Units 04:37 04:37 00:00 WBC 7.5 (4.8-10.8) x10^3/uL RBC 4.70 (4.70-6.10) 10^6/uL Hgb 14.4 (14.0-18.0) g/dL Hct 42.7 (42.0-52.0) % MCV 90.9 (80.0-94.0) fL MCH 30.6 (27.0-31.0) pg MCHC 33.7 (32.0-36.0) g/dL RDW 13.2 (12.0-15.0) % Plt Count 170 (130-450) 10^3/uL MPV 11.0 (7.4-11.4) fL Neut # (Auto) 6.1 (1.5-6.6) 10^3/uL Lymph # (Auto) 0.7 L (1.5-3.5) 10^3/uL Lane # (Auto) 0.7 (0.0-1.0) 10^3/uL Eos # (Auto) 0.0 (0.0-0.7) 10^3/uL Baso # (Auto) 0.0 (0.0-0.1) 10^3/uL Absolute Nucleated RBC 0.00 x10^3/uL Nucleated RBC % 0.0 /100WBC VBG pH (7.31-7.41) Ionized Calcium (1.15-1.33) mmol/L Sodium 137 (135-145) mmol/L Potassium 3.8 (3.5-4.5) mmol/L Chloride 106 (101-111) mmol/L Carbon Dioxide 22 (21-32) mmol/L Anion Gap 9.0 (6-13) BUN 13 (6-20) mg/dL Creatinine 0.6 (0.6-1.3) mg/dL Estimated GFR (MDRD) 128 (>89) Glucose 214 H (74-104) mg/dL POC Whole Bld Glucose (70 - 100) mg/dL Calcium 8.8 (8.5-10.3) mg/dL Phosphorus 3.2 (2.5-5.0) mg/dL Magnesium 1.7 1.8 (1.7-2.3) mg/dL Total Bilirubin 0.5 (0.2-1.0) mg/dL AST 31 (10-42) IU/L ALT 31 (10-60) IU/L Alkaline Phosphatase 112 (42-121) IU/L Total Protein 6.3 L (6.4-8.9) g/dL Albumin 3.6 (3.2-5.5) g/dL Globulin 2.7 (2.1-4.2) g/dL Albumin/Globulin Ratio 1.3 (1.0-2.2) 07/25/23 07/24/23 07/24/23 Range/Units 00:00 20:06 17:04 WBC (4.8-10.8) x10^3/uL RBC (4.70-6.10) 10^6/uL Hgb (14.0-18.0) g/dL Hct (42.0-52.0) % MCV (80.0-94.0) fL MCH (27.0-31.0) pg MCHC (32.0-36.0) g/dL RDW (12.0-15.0) % Plt Count (130-450) 10^3/uL MPV (7.4-11.4) fL Neut # (Auto) (1.5-6.6) 10^3/uL Lymph # (Auto) (1.5-3.5) 10^3/uL Lane # (Auto) (0.0-1.0) 10^3/uL Eos # (Auto) (0.0-0.7) 10^3/uL Baso # (Auto) (0.0-0.1) 10^3/uL Absolute Nucleated RBC x10^3/uL Nucleated RBC % /100WBC VBG pH (7.31-7.41) Ionized Calcium (1.15-1.33) mmol/L Sodium (135-145) mmol/L Potassium (3.5-4.5) mmol/L Chloride (101-111) mmol/L Carbon Dioxide (21-32) mmol/L Anion Gap (6-13) BUN (6-20) mg/dL Creatinine (0.6-1.3) mg/dL Estimated GFR (MDRD) (>89) Glucose (74-104) mg/dL POC Whole Bld Glucose 228 H 199 H (70 - 100) mg/dL Calcium (8.5-10.3) mg/dL Phosphorus 2.8 (2.5-5.0) mg/dL Magnesium (1.7-2.3) mg/dL Total Bilirubin (0.2-1.0) mg/dL AST (10-42) IU/L ALT (10-60) IU/L Alkaline Phosphatase (42-121) IU/L Total Protein (6.4-8.9) g/dL Albumin (3.2-5.5) g/dL Globulin (2.1-4.2) g/dL Albumin/Globulin Ratio (1.0-2.2) 07/24/23 07/24/23 07/24/23 Range/Units 15:00 15:00 15:00 WBC (4.8-10.8) x10^3/uL RBC (4.70-6.10) 10^6/uL Hgb (14.0-18.0) g/dL Hct (42.0-52.0) % MCV (80.0-94.0) fL MCH (27.0-31.0) pg MCHC (32.0-36.0) g/dL RDW (12.0-15.0) % Plt Count (130-450) 10^3/uL MPV (7.4-11.4) fL Neut # (Auto) (1.5-6.6) 10^3/uL Lymph # (Auto) (1.5-3.5) 10^3/uL Lane # (Auto) (0.0-1.0) 10^3/uL Eos # (Auto) (0.0-0.7) 10^3/uL Baso # (Auto) (0.0-0.1) 10^3/uL Absolute Nucleated RBC x10^3/uL Nucleated RBC % /100WBC VBG pH 7.436 H (7.31-7.41) Ionized Calcium 1.15 (1.15-1.33) mmol/L Sodium (135-145) mmol/L Potassium 4.1 (3.5-4.5) mmol/L Chloride (101-111) mmol/L Carbon Dioxide (21-32) mmol/L Anion Gap (6-13) BUN (6-20) mg/dL Creatinine (0.6-1.3) mg/dL Estimated GFR (MDRD) (>89) Glucose (74-104) mg/dL POC Whole Bld Glucose (70 - 100) mg/dL Calcium (8.5-10.3) mg/dL Phosphorus 2.1 L (2.5-5.0) mg/dL Magnesium 1.7 (1.7-2.3) mg/dL Total Bilirubin (0.2-1.0) mg/dL AST (10-42) IU/L ALT (10-60) IU/L Alkaline Phosphatase (42-121) IU/L Total Protein (6.4-8.9) g/dL Albumin (3.2-5.5) g/dL Globulin (2.1-4.2) g/dL Albumin/Globulin Ratio (1.0-2.2) Sepsis Event Note (H) - Evaluation Current Stage of Sepsis: Sepsis Possible source of Sepsis: positive: Other - Sepsis Criteria Sepsis Criteria: ENT SURGEON: altered consciousness (unrelated to primary neuro pathology), SBP less than 90 mmHg, Metabolic: lactate > 2 mmol/L Assessment/Plan - Problem List (1) Acute metabolic encephalopathy Impression: Patient does have dementia at baseline however he was significantly more somnolent this admission. CT head negative for any acute findings Mental status is up and down. PT and OT saw him and felt he is not rehabable and is at his baseline We do not suspect meningitis. Plan: Cont to treat infection Supportuve care (2) Bacteremia due to Streptococcus Assessment/Plan: Blood cultures positive for Streptococcus. Repeat blood cultures done to check if no further growth, result pending. Transitioned to ceftriaxone monotherapy. TTE to be done today to rule out IE. Exact source is unknown. He does not have any obvious skin sources. No e vidence of pneumonia on chest XR. Plan: Does not appear to have toxic shock syndrome. Will hold off on adding Clindamycin. Cont empiric Ceftriaxone monotherapy. Await Echo looking for veg, to determine duration of treatment (3) SIRS (systemic inflammatory response syndrome) Assessment/Plan: Blood cultures currently growing Strep. Chest x-ray unremarkable. Plan: Continue IV ceftriaxone (4) CAD (coronary artery disease) Assessment/Plan: No EKG or troponin on admission. Plan: Await Echo to r/o wall motion abnormalities and IE. Cont restarted Plavix. Continue statin. (5) HTN (hypertension) Assessment/Plan: Initially we held all home antihypertensives due to low blood pressures. Noew BP running 140-170 syst Plan: Restart Coreg and Losartan with parameters for holding (6) DM2 (diabetes mellitus, type 2) Assessment/Plan: A1c result came back at 6.9 Plan: DM diet SS insulin coverage (7) Dementia Assessment/Plan: Resides in a dementia unit. He is pleasantly confused, but is prone to sundowning, per chart Plan: Will await family arrival to determine if patient's current mental status is at baseline. Haldol 5 mg IM was given x1. I will decrease or stop the dose as it likely added to lethargy today (8) Abdominal hernia Assessment/Plan: Patient has an abdominal hernia. Per family he was not cleared for surgery by Cardiology. Does not appear strangulated or tender. (9) Shock circulatory Assessment/Plan: Resolved. He ultimately did not require vasopressor medication. Exact etiology of his hypotension was initially unknown. Initially believed to be hemorrhagic shock however his hemoglobin was likely inaccurate as it improved on recheck. Likely due to sepsis from bacteremia. No source of infection has been found on chest x-ray. Patient does have a history of an umbilical hernia but this does not appear incarcerated. Viral PCR was negative.
[2023-07-25] MEDS: ATORVASTATIN 40 MG TABLET PO SCH (20:11)
[2023-07-25] MEDS: carvediloL 3.125 MG TABLET PO SCH (20:11)
[2023-07-26 04:45] LABS: BASOPHILS # (AUTO) 0.1 10^3/uL (0.0-0.1); BASOPHILS % (AUTO) 0.7 %; EOSINOPHILS # (AUTO) 0.1 10^3/uL (0.0-0.7); EOSINOPHILS % (AUTO) 1.5 %; HCT - HEMATOCRIT 39.4 % (42.0-52.0); HGB - HEMOGLOBIN 13.5 g/dL (14.0-18.0); LYMPHOCYTES % (AUTO) 13.8 %; MEAN CORPUSCULAR HEMOGLOBIN 31.3 pg (27.0-31.0); MEAN CORPUSCULAR HGB CONC 34.3 g/dL (32.0-36.0); MEAN CORPUSCULAR VOLUME 91.4 fL (80.0-94.0); MEAN PLATELET VOLUME 10.6 fL (7.4-11.4); MONOCYTES # (AUTO) 0.8 10^3/uL (0.0-1.0); MONOCYTES % (AUTO) 10.9 %; NEUTROPHILS # (AUTO) 5.3 10^3/uL (1.5-6.6); NEUTROPHILS % (AUTO) 72.6 %; PLT - PLATELET COUNT 184 10^3/uL (130-450); RED BLOOD COUNT 4.31 10^6/uL (4.70-6.10); RED CELL DISTRIBUTION WIDTH 13.2 % (12.0-15.0); WHITE BLOOD COUNT 7.3 x10^3/uL (4.8-10.8)
[2023-07-26 04:51] LABS: CALCIUM, IONIZED 1.11 mmol/L (1.15-1.33); VBG PH 7.48 (7.31-7.41)
[2023-07-26 05:05] LABS: ALBUMIN 3.3 g/dL (3.2-5.5); ALBUMIN/GLOBULIN RATIO 1.3 (1.0-2.2); BILIRUBIN,TOTAL 0.5 mg/dL (0.2-1.0); CALCIUM 8.4 mg/dL (8.5-10.3); CREATININE 0.7 mg/dL (0.6-1.3); MAGNESIUM 1.8 mg/dL (1.7-2.3); PHOSPHORUS 3.6 mg/dL (2.5-5.0); TOTAL PROTEIN 5.8 g/dL (6.4-8.9)
[2023-07-26] MEDS ORDERED: CALCIUM CHLORIDE 1,000 MG in SODIUM CHLORIDE 0.9% 50 ML IV ONE (06:00)
[2023-07-26] MEDS ORDERED: MAGNESIUM SULFATE 2 GRAM 2 GM/50 ML BAG IV ONE (06:00)
[2023-07-26] MEDS ORDERED: CALCIUM GLUC 1,000MG/50ML-NACL 1,000 MG/50 ML BAG IV ONE (06:08)
[2023-07-26] MEDS: PANTOPRAZOLE 40 MG TABLET PO SCH ×2 (06:26→16:46)
[2023-07-26] MEDS: SODIUM CHLORIDE FLUSH 0.9% 10 ML SYRINGE IVP PRN ×2 (06:26→20:25)
[2023-07-26] MEDS: SODIUM CHLORIDE FLUSH 0.9% 10 ML SYRINGE IVP SCH ×3 (08:32→20:25)
[2023-07-26] MEDS: MULTIVITAMIN TABLET PO SCH (08:32)
[2023-07-26] MEDS: CLOPIDOGREL 75 MG TABLET PO SCH (08:33)
[2023-07-26] MEDS: LOSARTAN 50 MG TABLET PO SCH (08:33)
[2023-07-26] MEDS: carvediloL 3.125 MG TABLET PO SCH ×2 (08:34→20:14)
--- NOTE | 2023-07-26 08:55 | PROVIDER PROGRESS NOTE ---
Assessment/Plan - Problem List (1) Bacteremia due to Streptococcus Assessment/Plan: Blood cultures positive for Streptococcus. Exact source is unknown. He does not have any obvious skin sources. No evidence of pneumonia on chest XR. Does not appear to have toxic shock syndrome. We did not add Clindamycin. Repeat blood cultures done to check if no further growth, and result pending, but after first 24 hours has neg growth. He was transitioned to ceftriaxone monotherapy. Echo was done looking for veg, to determine duration of treatment, and no veg seen. Plan: Will order PICC line placement Cont empiric Ceftriaxone monotherapy. Duration will be 2 weeks from time of the neg bld cx (2) Acute metabolic encephalopathy Impression: Patient does have dementia at baseline however he was significantly more somnolent this admission. CT head negative for any acute findings. We do not suspect meningitis. He was so sleepy yesterday that he had an ABG done. This did not show CO2 retention or hypoxia. Mental status is up and down, but overall improved. PT and OT saw him and felt he is not rehabable and is at his baseline Plan: Transfer out of ICU to [facility] status Cont to treat infection Supportive care (3) CAD (coronary artery disease) Assessment/Plan: No EKG or troponin done on admission. Echo done 07/25, looking for veg. The echo showed normal LVEF of >70%. Plan: Cont restarted Plavix. Continue statin. (4) HTN (hypertension) Assessment/Plan: Initially we held all home antihypertensives due to low blood pressures. BP running 140-170 syst Plan: Restarted Coreg and Losartan with parameters for holding (5) DM2 (diabetes mellitus, type 2) Assessment/Plan: A1c result came back at 6.9 Plan: DM diet SS insulin coverage Will restart his home dose of Metformin today (6) Dementia Assessment/Plan: Resides in a dementia unit. He is pleasantly confused, but is prone to s undowning, per chart. Haldol 5 mg IM was given x1, then I will decreased the dose as it likely added to lethargy yesterday PT and OT saw him and felt he is not rehabable and is at his baseline Plan: Supportive care Minimize sedatives (7) Abdominal hernia Assessment/Plan: Patient has an abdominal hernia. Per family he was not cleared for surgery by Cardiology. Does not appear strangulated or tender. (8) Shock circulatory Assessment/Plan: Resolved. He ultimately did not require vasopressor medication. (9) SIRS (systemic inflammatory response syndrome) Assessment/Plan: Resolved. Blood cultures grew Strep. Plan: Continue IV ceftriaxone, a 2 week course from the first neg bld cx, is planned - Current Meds Current Meds: Current Medications Generic Name Dose Route Start Last Admin Trade Name Freq PRN Reason Stop Dose Admin Atorvastatin Calcium 40 mg 07/23/23 21:00 07/25/23 20:11 Atorvastatin 40 Mg Tablet PO 40 mg QPM DAYANARA Administration Carvedilol 6.25 mg 07/25/23 21:00 07/26/23 08:34 Carvedilol 3.125 Mg Tablet PO 6.25 mg BID DAYANARA Administration Clopidogrel Bisulfate 75 mg 07/24/23 12:00 07/26/23 08:33 Clopidogrel 75 Mg Tablet PO 75 mg DAILY DAYANARA Administration Ceftriaxone Sodium 2 gm/ 100 mls @ 200 mls/hr 07/24/23 09:00 07/25/23 09:15 Sodium Chloride IV 08/06/23 08:59 Infused DAILY DAYANARA Infusion Insulin Human Lispro 1 - 9 unit 07/24/23 08:00 07/25/23 20:21 Insulin Lispro 300 Unit/3 Ml Pen SUBQ 1 unit 0800,1200,1700,2100 DAYANARA Administration Protocol Losartan Potassium 25 mg 07/26/23 09:00 07/26/23 08:33 Losartan 50 Mg Tablet PO 25 mg DAILY DAYANARA Administration Multivitamins 1 tab 07/24/23 08:00 07/26/23 08:32 Multivitamin Tablet PO 1 tab DAILYWM DAYANARA Administration Pantoprazole Sodium 40 mg 07/24/23 08:00 07/26/23 06:26 Pantoprazole 40 Mg Tablet PO 40 mg BIDAC DAYANARA Administration Sodium Chloride 10 ml 07/23/23 02:21 07/26/23 06:26 Sodium Chloride Flush 0.9% 10 Ml Syringe IVP 10 ml PRN PRN Administration NEEDED PER PROVIDER ORDERS Sodium Chloride 10 ml 07/23/23 09:00 07/26/23 08:32 Sodium Chloride Flush 0.9% 10 Ml Syringe IVP 10 ml 0100,0900,1700 DAYANARA Administration - Lab Result Fish Bone Diagrams: 07/26/23 04:16 07/26/23 04:16 - Additional Planning My Orders: My Active Orders 07/25/23 Lunch Carb-controlled Diet [DIET] 07/25/23 12:36 RT - Obtain Arterial Specimen [RC] .ONCE 07/25/23 13:22 Haloperidol Inj [Haldol Inj] 5 mg IM Q12H PRN 07/25/23 21:00 carvediloL [Coreg] 6.25 mg PO BID 07/26/23 08:50 PICC Line Insert [RC] .ONCE 07/26/23 08:52 Transfer [Admit \ Transfer \ Status] [RC] .ONCE 07/26/23 09:00 Losartan [Cozaar] 25 mg PO DAILY 07/26/23 10:00 CALCIUM, IONIZED ([facility]) [BG] Timed MAGNESIUM [CHEM] Timed Subjective - Subjective Patient Reports: No Complaints (He is sitting up in chair, eating his breakfast, he is minimally communicative, he follows directions) Objective Vital Signs: Vital Signs - 24 hr 07/25/23 07/25/23 07/25/23 09:57 16:21 20:40 Temperature 36.4 C L 36.8 C 36.4 C L Heart Rate [ 72 92 86 Radial] Respiratory 17 14 15 Rate Blood Pressure 158/70 H [Left Brachial artery] Blood Pressure 148/99 H 148/87 H [Right Brachial artery] O2 Saturation 95 96 97 07/26/23 07/26/23 07/26/23 04:19 08:27 08:32 Temperature 36.6 C 36.3 C L Heart Rate [ 70 79 Radial] Respiratory 18 20 Rate Blood Pressure 127/51 L [Left Brachial artery] Blood Pressure 141/63 H [Right Brachial artery] O2 Saturation 98 95 Oxygen O2 Source Room air I&O (Last 24 Hrs): Intake and Output Totals x24h 07/24/23 07/25/23 07/26/23 23:59 23:59 23:59 Intake Total 1390 1180 300 Output Total 300 Balance 1390 880 300 General: Alert (Minimally communicative, nods) HEENT: Mucous membr. moist/pink Neck: Supple, No JVD Neuro: Alert, Other (Slow movement, mild right hand tremor, minimally communicative, follows directions, aable to feed himself) Cardiovascular: Regular rate, No murmurs Respiratory: No respiratory distress, Breath sounds nml Abdomen: Normal bowel sounds, Soft, No tenderness Extremities: No clubbing, No edema, No tenderness/swelling - Results Results: Laboratory Results WBC 7.3 x10^3/uL (4.8-10.8) 07/26/23 04:16 RBC 4.31 10^6/uL (4.70-6.10) L 07/26/23 04:16 Hgb 13.5 g/dL (14.0-18.0) L 07/26/23 04:16 Hct 39.4 % (42.0-52.0) L 07/26/23 04:16 MCV 91.4 fL (80.0-94.0) 07/26/23 04:16 MCH 31.3 pg (27.0-31.0) H 07/26/23 04:16 MCHC 34.3 g/dL (32.0-36.0) 07/26/23 04:16 RDW 13.2 % (12.0-15.0) 07/26/23 04:16 Plt Count 184 10^3/uL (130-450) 07/26/23 04:16 MPV 10.6 fL (7.4-11.4) 07/26/23 04:16 Neut # (Auto) 5.3 10^3/uL (1.5-6.6) 07/26/23 04:16 Lymph # (Auto) 1.0 10^3/uL (1.5-3.5) L 07/26/23 04:16 [place] # (Auto) 0.8 10^3/uL (0.0-1.0) 07/26/23 04:16 Eos # (Auto) 0.1 10^3/uL (0.0-0.7) 07/26/23 04:16 Baso # (Auto) 0.1 10^3/uL (0.0-0.1) 07/26/23 04:16 Absolute Nucleated RBC 0.00 x10^3/uL 07/26/23 04:16 Nucleated RBC % 0.0 /100WBC 07/26/23 04:16 PT 12.4 secs (9.9-12.6) 07/22/23 17:42 INR (Fingerstick) 1.2 (0.8-1.2) 07/23/23 06:53 INR 1.2 (0.8-1.2) 07/22/23 17:42 Bld Gas Analysis Time 0455 07/23/23 04:55 Sample Site RIGHT RADIAL 07/23/23 04:55 ABG pH 7.36 (7.35-7.45) 07/23/23 04:55 ABG pCO2 35 mmHg (34-45) 07/23/23 04:55 ABG pO2 83 mmHg (80-100) 07/23/23 04:55 ABG HCO3 19.3 mmol/L (22.0-26.0) L 07/23/23 04:55 ABG Total CO2 20.3 MMOL/L (21.0-29.0) L 07/23/23 04:55 ABG O2 Saturation 95 % (94-98) 07/23/23 04:55 ABG Base Excess -5.5 mmol/L (-2.0-3.0) L 07/23/23 04:55 Cruzito Test POSITIVE 07/23/23 04:55 VBG pH 7.480 (7.31-7.41) H 07/26/23 04:16 Ionized Calcium 1.11 mmol/L (1.15-1.33) L 07/26/23 04:16 O2 Delivery Device OXYMASK 07/23/23 04:55 O2 Liters/Min 4.00 LPM 07/23/23 04:55 FiO2 36.00 07/23/23 04:55 Sodium 138 mmol/L (135-145) 07/26/23 04:16 Potassium 4.0 mmol/L (3.5-4.5) 07/26/23 04:16 Chloride 107 mmol/L (101-111) 07/26/23 04:16 Carbon Dioxide 23 mmol/L (21-32) 07/26/23 04:16 Anion Gap 8.0 (6-13) 07/26/23 04:16 BUN 14 mg/dL (6-20) 07/26/23 04:16 Creatinine 0.7 mg/dL (0.6-1.3) 07/26/23 04:16 Estimated GFR (MDRD) 107 (>89) 07/26/23 04:16 Glucose 181 mg/dL (74-104) H 07/26/23 04:16 POC Whole Bld Glucose 185 mg/dL (70 - 100) H 07/26/23 07:44 Estimat Average Glucose 151 mg/dL (70-100) H 07/23/23 06:36 Hemoglobin A1c % 6.9 % (4.27-6.07) H 07/23/23 06:36 Lactic Acid 2.2 mmol/L (0.5-2.2) 07/23/23 12:08 Calcium 8.4 mg/dL (8.5-10.3) L 07/26/23 04:16 Phosphorus 3.6 mg/dL (2.5-5.0) 07/26/23 04:16 Magnesium 1.8 mg/dL (1.7-2.3) 07/26/23 04:16 Total Bilirubin 0.5 mg/dL (0.2-1.0) 07/26/23 04:16 AST 20 IU/L (10-42) 07/26/23 04:16 ALT 26 IU/L (10-60) 07/26/23 04:16 Alkaline Phosphatase 103 IU/L (42-121) 07/26/23 04:16 B-Natriuretic Peptide 86 pg/mL (5-100) 07/22/23 20:04 Total Protein 5.8 g/dL (6.4-8.9) L 07/26/23 04:16 Albumin 3.3 g/dL (3.2-5.5) 07/26/23 04:16 Globulin 2.5 g/dL (2.1-4.2) 07/26/23 04:16 Albumin/Globulin Ratio 1.3 (1.0-2.2) 07/26/23 04:16 Lipase 14 U/L (11-82) 07/22/23 20:04 Procalcitonin Immunoas 11.21 ng/mL (<0.5) H* 07/24/23 09:18 Urine Color YELLOW 07/22/23 21:28 Urine Clarity CLEAR (CLEAR) 07/22/23 21:28 Urine pH 6.0 PH (5.0-7.5) 07/22/23 21:28 Ur Specific [place] 1.025 (1.002-1.030) 07/22/23 21:28 Urine Protein >=300 mg/dL (NEGATIVE) H 07/22/23 21:28 Urine Glucose (UA) 100 mg/dL (NEGATIVE) H 07/22/23 21:28 Urine Ketones TRACE mg/dL (NEGATIVE) 07/22/23 21:28 Urine Occult Blood NEGATIVE (NEGATIVE) 07/22/23 21:28 Urine Nitrite NEGATIVE (NEGATIVE) 07/22/23 21: Urine Bilirubin NEGATIVE (NEGATIVE) 07/22/23 21:28 Urine Urobilinogen 4 E.U./dL (NORMAL) H 07/22/23 21:28 Ur Leukocyte Esterase NEGATIVE (NEGATIVE) 07/22/23 21:28 Urine RBC 0-5 /HPF (0-5) 07/22/23 21:28 Urine WBC 0-3 /HPF (0-3) 07/22/23 21:28 Ur Squamous Epith Cells FEW Squamous (<= Few) 07/22/23 21:28 Amorphous Sediment Few /LPF 07/22/23 21:28 Urine Bacteria Rare /HPF (None Seen) 07/22/23 21:28 Urine Casts 3-5 Hyaline Casts /LPF 07/22/23 21:28 Urine Mucus Moderate Strands 07/22/23 21:28 Ur Microscopic Review INDICATED 07/22/23 21:28 Urine Culture Comments NOT INDICATED 07/22/23 21:28 Nasal Adenovirus (PCR) NOT DETECTED 07/22/23 20:05 Nasal B. parapertussis DNA (PCR) NOT DETECTED 07/22/23 20:05 Nasal Coronavir 229E PCR NOT DETECTED 07/22/23 20:05 Nasal Coronavir HKU1 PCR NOT DETECTED 07/22/23 20:05 Nasal Coronavir NL63 PCR NOT DETECTED 07/22/23 20:05 Nasal Coronavir OC43 PCR NOT DETECTED 07/22/23 20:05 Nasal Enterovir/Rhinovir PCR NOT DETECTED 07/22/23 20:05 Nasal Influenza B PCR NOT DETECTED 07/22/23 20:05 Nasal Influenza A PCR NOT DETECTED 07/22/23 20:05 Nasal Parainfluen 1 PCR NOT DETECTED 07/22/23 20:05 Nasal Parainfluen 2 PCR NOT DETECTED 07/22/23 20:05 Nasal Parainfluen 3 PCR NOT DETECTED 07/22/23 20:05 Nasal Parainfluen 4 PCR NOT DETECTED 07/22/23 20:05 Nasal RSV (PCR) NOT DETECTED 07/22/23 20:05 Nasal Screen MRSA (PCR) NEGATIVE (NEGATIVE) 07/23/23 11:55 Nasal B.pertussis DNA PCR NOT DETECTED 07/22/23 20:05 Nasal C.pneumoniae (PCR) NOT DETECTED 07/22/23 20:05 Isaac Human Metapneumo PCR NOT DETECTED 07/22/23 20:05 Nasal M.pneumoniae (PCR) NOT DETECTED 07/22/23 20:05 Nasal SARS-CoV-2 (PCR) NOT DETECTED 07/22/23 20:05 Blood Type A POSITIVE 07/23/23 06:36 Antibody Screen NEGATIVE 07/23/23 06:36 Crossmatch IS Only See Detail 07/23/23 06:36 Sepsis Event Note (H) - Evaluation Current Stage of Sepsis: Sepsis Possible source of Sepsis: positive: Other - Sepsis Criteria Sepsis Criteria: ASSOCIATE EMBALMER/FUNERAL DIRECTOR: altered consciousness (unrelated to primary neuro pathology), SBP less than 90 mmHg, Metabolic: lactate > 2 mmol/L
[2023-07-26] MEDS: cefTRIAXone 2 GM in SODIUM CHLORIDE 0.9% MINIBAG 100 ML IV SCH (08:57)
[2023-07-26] MEDS: INSULIN LISPRO 300 UNIT/3 ML PEN SUBQ SCH ×4 (09:08→20:24)
[2023-07-26 10:12] LABS: CALCIUM, IONIZED 1.15 mmol/L (1.15-1.33); VBG PH 7.423 (7.31-7.41)
--- NOTE | 2023-07-26 16:34 | ANESTHESIA PROCEDURE NOTE ---
Anesth Central Line Template - Central Line Central Line Preparation: Consent Obtained (From DPOA. Cassie), Time out completed, Ultrasound used, Sterile prep and drape Central line location: Left Brachial Central line type: PICC Double Lumen Central line catheter tip site resides: Superior vena cava (SVC) Central line aftercare: Secured, Placement confirmed, No complications, Pt tolerated well Other Info/Details: Consent obtained. Initially attempted right basillic and brachial veins but was unable to obtain access. Left arm prepped with chlorohexadine. Full sterile prep, drape, mask, gloves utilized. Left upper arm anesthetized with 5ml of 1% lidocaine. The left brachial vein was accessed with 18G needle using ultrasound guidance. Wire advanced with ease. Peel-away sheath inserted and wire removed. A 5FR dual lumen PICC trimmed to 45cm was inserted and advanced to the distal SVC using teleflex tip tracker. Placement confirmed using p-wave analysis. PICC was secured with 0cm of catheter exposed. Both ports aspirate and flush with ease. Ok to use PICC.
[2023-07-26] MEDS: metFORMIN 500 MG TABLET PO SCH (16:46)
[2023-07-26] MEDS: ATORVASTATIN 40 MG TABLET PO SCH (20:14)
[2023-07-27 04:32] LABS: BASOPHILS % (AUTO) 0.5 %; EOSINOPHILS # (AUTO) 0.1 10^3/uL (0.0-0.7); EOSINOPHILS % (AUTO) 1.6 %; HGB - HEMOGLOBIN 13.6 g/dL (14.0-18.0); LYMPHOCYTES % (AUTO) 13.6 %; MEAN CORPUSCULAR VOLUME 91.1 fL (80.0-94.0); MONOCYTES # (AUTO) 0.7 10^3/uL (0.0-1.0); MONOCYTES % (AUTO) 10.2 %; NEUTROPHILS # (AUTO) 5.4 10^3/uL (1.5-6.6); NEUTROPHILS % (AUTO) 73.7 %; PLT - PLATELET COUNT 211 10^3/uL (130-450); RED BLOOD COUNT 4.39 10^6/uL (4.70-6.10); RED CELL DISTRIBUTION WIDTH 13.2 % (12.0-15.0); WHITE BLOOD COUNT 7.3 x10^3/uL (4.8-10.8)
[2023-07-27 04:48] LABS: ALBUMIN 3.4 g/dL (3.2-5.5); ALBUMIN/GLOBULIN RATIO 1.4 (1.0-2.2); BILIRUBIN,TOTAL 0.6 mg/dL (0.2-1.0); CALCIUM 8.6 mg/dL (8.5-10.3); CREATININE 0.7 mg/dL (0.6-1.3); POTASSIUM 3.7 mmol/L (3.5-4.5); TOTAL PROTEIN 5.9 g/dL (6.4-8.9)
[2023-07-27] MEDS: PANTOPRAZOLE 40 MG TABLET PO SCH (07:59)
[2023-07-27] MEDS: INSULIN LISPRO 300 UNIT/3 ML PEN SUBQ SCH ×2 (08:03→13:27)
[2023-07-27] MEDS: LOSARTAN 50 MG TABLET PO SCH (08:20)
[2023-07-27] MEDS: carvediloL 3.125 MG TABLET PO SCH (08:20)
[2023-07-27] MEDS: metFORMIN 500 MG TABLET PO SCH (08:21)
[2023-07-27] MEDS: MULTIVITAMIN TABLET PO SCH (08:21)
[2023-07-27] MEDS: CLOPIDOGREL 75 MG TABLET PO SCH (08:22)
[2023-07-27 08:27] VITALS: O2SAT 94
[2023-07-27] MEDS: SODIUM CHLORIDE FLUSH 0.9% 10 ML SYRINGE IVP SCH (08:29)
[2023-07-27] MEDS: cefTRIAXone 2 GM in SODIUM CHLORIDE 0.9% MINIBAG 100 ML IV SCH (08:36)
[2023-07-27 14:08] VITALS: BP 137/74
--- NOTE | 2023-07-27 14:51 | DISCHARGE SUMMARY ---
Discharge Summary Admit Date: 07/23/23 Discharge Date: 07/27/23 Discharging Provider: Dr Barbara Barahona Primary Care Provider: VIKTORIYA Alejandra Condition at Discharge: Stable Discharge Disposition: DC/Xfer - HPI History of Present Illness: 83 y old male with PMH HTN, DM 2, HLP, CAD, H/O MO, dementia, brought in by ambula from nursing facility due to altered mental status. Pt is unable to provide any meaningful history , so most of history is from ER physician and ER record. Pt was febrile with Temp of 38.1, tachycardic and hypotensive. Labs showed normal WBC and normal lactic acid, Mag 1.2, UA neg, CXR showed no acute findings, CT brain showed no acute findings. In ER, pt was given IVF and cefepime. Pt is being admitted due to AMS, Sepsis from unknown source, hypotension, hypomagnesemia, acute encephalopathy - HOSPITAL COURSE Hospital Course: (1) Bacteremia due to Streptococcus Blood cultures turned positive for Streptococcus. Exact source is unknown: He did not have any obvious skin sources, no evidence of pneumonia on CXR, he did not appear to have toxic shock syndrome. He was put on empiric IV vancomycin and iv Zosyn.. Echo was done looking for veg, to determine duration of treatment, and no veg seen. Repeat blood cultures done to check if no further growth, and result was neg. He received a PICC line, was transitioned to Ceftriaxone monotherapy, based on Strep sensitivities. He was discharged to Swing bed (SNF here) for 2 weeks of antibx tx from time of the neg bld cx (2) Shock circulatory Resolved. He ultimately did not require vasopressor medication. (3) SIRS (systemic inflammatory response syndrome) Resolved with fluids and antibx. Blood cultures grew Strep. (4) Acute metabolic encephalopathy Patient was more somnolent on top of his dementia. CT head negative for any acute findings. We did not suspect meningitis. ABG done and did not show CO2 r etention or hypoxia. Mental status was up and down, but overall slowly improved. PT and OT saw him and felt he is not rehabable (5) CAD (coronary artery disease) No EKG or troponin done on admission. Echo was done here 07/25, looking for veg. The Echo showed normal LVEF of >70%, and no veg.He was kept on his Plavix and statin (6) HTN (hypertension) Initially we held all home antihypertensives due to low blood pressures. then we restarted Coreg and Losartan with parameters for holding (7) DM2 (diabetes mellitus, type 2) A1c result came back at 6.9. We continued DM diet, ss Insulin, then resumed Metformin at discharge. (8) Dementia Resides in a dementia unit. He is pleasantly confused, but is prone to sundowning, per chart. Haldol 5 mg IM was given x1, then dose was decreased as it added to prolonged hypersomnolence. He feeds himself, is minimally communicative. PT and OT saw him and felt he is not rehabable and was at his baseline (9) Abdominal hernia Patient has an abdominal hernia. Per family he was not cleared for surgery by Cardiology. Does not appear strangulated or tender. - ALLERGIES Allergies/Adverse Reactions: Allergies Allergy/AdvReac Type Severity Reaction Status Date / Time peanut Allergy Severe Respiratory Verified 07/22/23 20:13 - MEDICATIONS Home Medications: Ambulatory Orders Medication Instructions Recorded Confirmed Imipramine HCl 100 mg PO HS 01/11/13 07/28/23 Metformin HCl 1,000 mg PO BID 01/11/13 07/28/23 Clopidogrel [Plavix] 75 mg PO DAILY 09/06/22 07/28/23 Losartan Potassium 25 mg PO DAILY 09/06/22 07/28/23 Multivitamin 1 each PO DAILY 01/13/23 07/28/23 Acetaminophen [Tylenol] 650 mg PO TID 07/23/23 07/28/23 Atorvastatin Calcium 40 mg PO QPM 07/23/23 07/28/23 Diclofenac Sodium 1% Gel [Voltaren 2 gm TOP BID 07/23/23 07/28/23 Gel] carvediloL [Coreg] 6.25 mg PO BID 07/23/23 07/28/23 - PHYSICAL EXAM AT DISCHARGE General Appearance: positive: No acute distress, Alert Eyes Bilateral: positive: Normal inspection, No lid inflammation ENT: positive: ENT inspection nml, No signs of dehydration Neck: positive: Nml inspection, No JVD Respiratory: positive: No respiratory distress, Breath sounds nml Cardiovascular: positive: Regular rate & rhythm, No murmur Abdomen: positive: Non-tender, Nml bowel sounds, No distention Skin: positive: Warm, Dry Extremities: positive: Non-tender, No pedal edema Neurologic/Psychiatric: positive: Motor nml (but bradykinetic), Other (Minimally communicative) - LABS Result Diagrams: 07/27/23 04:21 07/27/23 04:21 - SEPSIS Current Stage of Sepsis: Sepsis Possible source of Sepsis: Other Sepsis Criteria: CONSUMER INSIGHTS SPECIALIST: altered consciousness (unrelated to primary neuro pathology), SBP less than 90 mmHg, Metabolic: lactate > 2 mmol/L - TIME SPENT Time Spent in Discharge (Minutes): 40
--- NOTE | 2023-07-27 14:51 | Discharge Plan ---
Discharge Plan Problem Reviewed?: Yes Disposition: [facility] DC/Xfer Condition: Stable No Smoking: If you smoke, Please STOP! Call for help.
== END 2023-07-27 15:04 | DRG 871 ==
LOC: EDUNIT# → ED 19:30 → MS2 07-23 02:21 → ICU 07-23 05:52 → MS2 07-27 13:17
PROVIDERS: ADMIT Internal Medicine; ATTEND Internal Medicine
PROC: 02HV33Z Insertion of Infusion Device into Superior Vena Cava, Percutaneous Approach (ICD-10-PCS; principal; 2023-07-26)
DX: I95.9 Hypotension, unspecified (principal); R50.9 Fever, unspecified; A40.9 Streptococcal sepsis, unspecified; R00.0 Tachycardia, unspecified; R25.1 Tremor, unspecified; G93.41 Metabolic encephalopathy; R65.21 Severe sepsis with septic shock; F03.90 Unspecified dementia, unspecified severity, without behavioral disturbance, psychotic disturbance, mood disturbance, and anxiety; I25.10 Atherosclerotic heart disease of native coronary artery without angina pectoris; I10 Essential (primary) hypertension; E11.9 Type 2 diabetes mellitus without complications; E78.00 Pure hypercholesterolemia, unspecified; S50.311A Abrasion of right elbow, initial encounter; X58.XXXA Exposure to other specified factors, initial encounter; R41.0 Disorientation, unspecified; Z79.4 Long term (current) use of insulin; Z79.84 Long term (current) use of oral hypoglycemic drugs; K46.9 Unspecified abdominal hernia without obstruction or gangrene; E78.5 Hyperlipidemia, unspecified; E83.42 Hypomagnesemia; I25.2 Old myocardial infarction; Z66 Do not resuscitate
CPT/HCPCS: 36415; 36600; 51701; 70450; 71045; 80053; 81001; 82310; 82330; 82803; 83036; 83605; 83690; 83735; 83880; 84100; 84132; 84145; 85025; 85610; 86850; 86900; 86901; 86920; 87040; 87077; 87150; 87181; 87633; 93306; 96361; 96365; 97162; 97166; 99285; A9270; C1751; J3370; J7040; 80048; 81003; 85018; 87086

== ENCOUNTER 2023-07-27 12:00 | Inpatient (IN) | payer MEDICARE ==
[2023-07-27] MEDS: metFORMIN 500 MG TABLET PO SCH (16:44)
[2023-07-27] MEDS: INSULIN LISPRO 300 UNIT/3 ML PEN SUBQ SCH ×2 (16:45→21:14)
[2023-07-27] MEDS: ATORVASTATIN 40 MG TABLET PO SCH (21:14)
[2023-07-27] MEDS: carvediloL 3.125 MG TABLET PO SCH (21:14)
--- NOTE | 2023-07-28 07:20 | HISTORY & PHYSICAL EXAMINATION ---
Chief Complaint - Chief Complaint Chief Complaint: From Inpt, adm to Swing bed ([facility]) for iv antibx via PICC History of Present Illness - Admitted From Admitted From:: Chart review - History Obtained From History obtained from: Chart review and personal care of pt - History of Present Illness HPI Comment/Other: This is an 83-year-old male with a history of dementia, DM, HTN, CAD. He is minimally communicative and lives in a facility. He presented with sepsis and was found to be bacteremic. The blood culture grew Strep. His Echo showed no suspicion for vegetations. A PICC line has been inserted and he needs to finish a total 2-week course of IV antibiotics. He is being admitted to [facility] (Swing bed status) to complete his course of IV antibiotics. His CODE STATUS is DNR/DNI. History - Past Medical History Cardiovascular: reports: Hypertension, High cholesterol, Coronary artery disease, [place], Arrhythmia, Other Respiratory: reports: Pneumonia Neuro: reports: Dementia Endocrine/Autoimmune: reports: Type 2 diabetes GI: reports: Chronic constipation, Diverticulitis HEENT: reports: Macular degeneration, Chronic hearing loss Musculoskeletal: reports: Gout, Other Derm: reports: Other MRSA Hx?: No - Past Surgical History General: reports: Cholecystectomy, Bowel surgery, Colonoscopy Cardiovascular: reports: Angioplasty - Family & Social History Living arrangement: Assisted living - POLST Patient has POLST: No Meds/Allgy - Home Medications Home Medications: Ambulatory Orders Medication Instructions Recorded Confirmed Imipramine HCl 100 mg PO HS 01/11/13 07/23/23 Metformin HCl 1,000 mg PO BID 01/11/13 07/23/23 Clopidogrel [Plavix] 75 mg PO DAILY 09/06/22 07/23/23 Losartan Potassium 25 mg PO DAILY 09/06/22 07/23/23 Multivitamin 1 each PO DAILY 01/13/23 07/23/23 Acetaminophen [Tylenol] 650 mg PO TID 07/23/23 07/23/23 Atorvastatin Calcium 40 mg PO QPM 07/23/23 07/23/23 Diclofenac Sodium 1% Gel [Voltaren 2 gm TOP BID 07/23/23 07/23/23 Gel] carvediloL [Coreg] 6.25 mg PO BID 07/23/23 07/23/23 - Allergies Allergies/Adverse Reactions: Allergies Allergy/AdvReac Type Severity Reaction Status Date / Time peanut Allergy Severe Respiratory Verified 07/22/23 20:13 Review of Systems - Neurological Neurological: reports: Other (Has dementia, is minimally communicative, able to feed himself) Exam - Vital Signs Reviewed Vital Signs: Yes Vital Signs: Vital Signs x48h Temp Pulse Resp BP Pulse Ox 07/28/23 00:07 36.7 C 83 19 150/78 H 94 - Physical Exam General Appearance: positive: No acute distress, Alert, Other (Tall elderly male. Minimally communicative, slow to answer, voice very quiet) Eyes Bilateral: positive: Normal inspection, EOMI ENT: positive: ENT inspection nml, No signs of dehydration Neck: positive: Thyroid nml, No JVD Respiratory: positive: No respiratory distress, Breath sounds nml Cardiovascular: positive: Regular rate & rhythm, No murmur Abdomen: positive: Non-tender, Nml bowel sounds, No distention Skin: positive: Warm, Dry Extremities: positive: Non-tender, No pedal edema Neurologic/Psychiatric: positive: CN's nml (2-12), Other (Moves all extremities, minimally communicative, voice very quiet, mostly nods when answering) Conclusion/Plan - Problem List (1) Bacteremia due to Streptococcus Conclusion/Plan: The patient had a PICC line inserted yesterday, after the repeat blood cultures came back negative Plan: The plan is for IV antibiotics using ceftriaxone 2 g IV daily, to complete a 14- day course, this will go through 08/08/2023 (2) DM2 (diabetes mellitus, type 2) Conclusion/Plan: Plan: Continue continue a diabetic diet Hypoglycemic protocol Fingerstick checks, sliding scale insulin coverage Continues metformin 1000 twice daily WM (3) Dementia Conclusion/Plan: Plan: Supportive care (4) CAD (coronary artery disease) Conclusion/Plan: Plan: His cardiac and HTN meds will be continued
[2023-07-28] MEDS: cefTRIAXone 2 GM in SODIUM CHLORIDE 0.9% MINIBAG 100 ML IV SCH (08:47)
[2023-07-28] MEDS: LACTOBACILLUS RHAMNOSUS GG CAPSULE PO SCH (08:48)
[2023-07-28] MEDS: CLOPIDOGREL 75 MG TABLET PO SCH (08:48)
[2023-07-28] MEDS: metFORMIN 500 MG TABLET PO SCH ×2 (08:48→17:38)
[2023-07-28] MEDS: MULTIVITAMIN TABLET PO SCH (08:50)
[2023-07-28] MEDS: INSULIN LISPRO 300 UNIT/3 ML PEN SUBQ SCH ×4 (08:50→21:11)
[2023-07-28] MEDS: carvediloL 3.125 MG TABLET PO SCH ×2 (08:51→20:58)
[2023-07-28] MEDS ORDERED: LOSARTAN 50 MG TABLET PO SCH (09:00)
--- NOTE | 2023-07-28 09:16 | PHARMACY PROGRESS NOTE ---
- Best Possible Medication History Admit Date and Time: 07/27/23 1531 Processed by: Pharmacy Medication History completed: Yes Patient Interview: Pt unable to participate Secondary Source(s): Insurance records (PATRICIA, RECORDS ANALYSIS MANAGER, AND I RECONCILED MEDS AGAINST INSURANCE AND ALSO AGAINST PT'S MOST RECENT ADMIT.) As the person ultimately responsible for medication therapy, providers are able to order a medication from an existing home medication list in [facility] via the "Reconcile Routine" prior to Confirmation of that medication by director of sales support. Such practice is discouraged except when the physician, in their clinical judgment, deems that a medical need exists for a medication without regard to previous use.
[2023-07-28] MEDS: ATORVASTATIN 40 MG TABLET PO SCH (20:58)
[2023-07-28] MEDS: IMIPRAMINE 25 MG TABLET PO SCH (21:00)
[2023-07-28] MEDS: ACETAMINOPHEN 325 MG TABLET PO PRN (21:15)
[2023-07-29] MEDS: INSULIN LISPRO 300 UNIT/3 ML PEN SUBQ SCH ×4 (09:21→20:40)
[2023-07-29] MEDS: metFORMIN 500 MG TABLET PO SCH ×2 (09:22→17:14)
[2023-07-29] MEDS: LACTOBACILLUS RHAMNOSUS GG CAPSULE PO SCH (09:22)
[2023-07-29] MEDS: LOSARTAN 50 MG TABLET PO SCH (09:22)
[2023-07-29] MEDS: carvediloL 3.125 MG TABLET PO SCH ×2 (09:22→20:42)
[2023-07-29] MEDS: MULTIVITAMIN TABLET PO SCH (09:23)
[2023-07-29] MEDS: cefTRIAXone 2 GM in SODIUM CHLORIDE 0.9% MINIBAG 100 ML IV SCH (09:23)
[2023-07-29] MEDS: CLOPIDOGREL 75 MG TABLET PO SCH (09:23)
[2023-07-29] MEDS: COD LIVER OIL/ZINC OXIDE 113 GM TUBE TOP PRN (09:24)
[2023-07-29] MEDS: IMIPRAMINE 25 MG TABLET PO SCH (20:49)
[2023-07-29] MEDS: ATORVASTATIN 40 MG TABLET PO SCH (20:49)
[2023-07-30] MEDS: SODIUM CHLORIDE FLUSH 0.9% 10 ML SYRINGE IVP SCH ×4 (03:52→23:53)
[2023-07-30] MEDS: INSULIN LISPRO 300 UNIT/3 ML PEN SUBQ SCH ×4 (07:37→20:47)
[2023-07-30] MEDS ORDERED: cefTRIAXone 2 GM VIAL ONE (08:41)
[2023-07-30] MEDS: metFORMIN 500 MG TABLET PO SCH ×2 (08:41→17:04)
[2023-07-30] MEDS: MULTIVITAMIN TABLET PO SCH (08:43)
[2023-07-30] MEDS: carvediloL 3.125 MG TABLET PO SCH ×2 (08:43→21:09)
[2023-07-30] MEDS: cefTRIAXone 2 GM in SODIUM CHLORIDE 0.9% MINIBAG 100 ML IV SCH (08:44)
[2023-07-30] MEDS: CLOPIDOGREL 75 MG TABLET PO SCH (08:45)
[2023-07-30] MEDS: LACTOBACILLUS RHAMNOSUS GG CAPSULE PO SCH (08:45)
[2023-07-30] MEDS: LOSARTAN 50 MG TABLET PO SCH (08:45)
[2023-07-30] MEDS: polyethylene glycoL 3350 17 GM PACKET PO SCH (12:11)
[2023-07-30] MEDS: SODIUM CHLORIDE FLUSH 0.9% 10 ML SYRINGE IVP PRN (15:53)
[2023-07-30] MEDS: COD LIVER OIL/ZINC OXIDE 113 GM TUBE TOP PRN (15:53)
[2023-07-30] MEDS: IMIPRAMINE 25 MG TABLET PO SCH (21:09)
[2023-07-30] MEDS: ATORVASTATIN 40 MG TABLET PO SCH (21:09)
[2023-07-31] MEDS: carvediloL 3.125 MG TABLET PO SCH ×2 (09:06→21:08)
[2023-07-31] MEDS: MULTIVITAMIN TABLET PO SCH (09:06)
[2023-07-31] MEDS: LACTOBACILLUS RHAMNOSUS GG CAPSULE PO SCH (09:06)
[2023-07-31] MEDS: metFORMIN 500 MG TABLET PO SCH ×2 (09:06→17:00)
[2023-07-31] MEDS: cefTRIAXone 2 GM in SODIUM CHLORIDE 0.9% MINIBAG 100 ML IV SCH (09:06)
[2023-07-31] MEDS: CLOPIDOGREL 75 MG TABLET PO SCH (09:06)
[2023-07-31] MEDS: LOSARTAN 50 MG TABLET PO SCH (09:06)
[2023-07-31] MEDS: INSULIN LISPRO 300 UNIT/3 ML PEN SUBQ SCH ×4 (09:07→21:13)
[2023-07-31] MEDS: polyethylene glycoL 3350 17 GM PACKET PO SCH (09:07)
[2023-07-31] MEDS: SODIUM CHLORIDE FLUSH 0.9% 10 ML SYRINGE IVP SCH ×2 (10:36→16:29)
[2023-07-31] MEDS: SODIUM CHLORIDE FLUSH 0.9% 10 ML SYRINGE IVP PRN (16:29)
[2023-07-31] MEDS: COD LIVER OIL/ZINC OXIDE 113 GM TUBE TOP PRN (16:33)
[2023-07-31] MEDS: ACETAMINOPHEN 325 MG TABLET PO PRN (16:59)
[2023-07-31] MEDS: IMIPRAMINE 25 MG TABLET PO SCH (21:09)
[2023-07-31] MEDS: ATORVASTATIN 40 MG TABLET PO SCH (21:12)
[2023-08-01] MEDS: SODIUM CHLORIDE FLUSH 0.9% 10 ML SYRINGE IVP SCH ×3 (00:11→17:35)
[2023-08-01] MEDS: polyethylene glycoL 3350 17 GM PACKET PO SCH (08:30)
[2023-08-01] MEDS: LACTOBACILLUS RHAMNOSUS GG CAPSULE PO SCH (08:31)
[2023-08-01] MEDS: CLOPIDOGREL 75 MG TABLET PO SCH (08:31)
[2023-08-01] MEDS: LOSARTAN 50 MG TABLET PO SCH (08:31)
[2023-08-01] MEDS: metFORMIN 500 MG TABLET PO SCH ×2 (08:31→17:35)
[2023-08-01] MEDS: carvediloL 3.125 MG TABLET PO SCH ×2 (08:31→21:26)
[2023-08-01] MEDS: MULTIVITAMIN TABLET PO SCH (08:31)
[2023-08-01] MEDS: INSULIN LISPRO 300 UNIT/3 ML PEN SUBQ SCH ×4 (08:40→21:27)
[2023-08-01] MEDS: cefTRIAXone 2 GM in SODIUM CHLORIDE 0.9% MINIBAG 100 ML IV SCH (08:41)
[2023-08-01] MEDS: ATORVASTATIN 40 MG TABLET PO SCH (21:26)
[2023-08-01] MEDS: IMIPRAMINE 25 MG TABLET PO SCH (21:27)
[2023-08-02] MEDS: SODIUM CHLORIDE FLUSH 0.9% 10 ML SYRINGE IVP SCH ×4 (00:56→23:35)
[2023-08-02] MEDS: CLOPIDOGREL 75 MG TABLET PO SCH (09:06)
[2023-08-02] MEDS: LACTOBACILLUS RHAMNOSUS GG CAPSULE PO SCH (09:06)
[2023-08-02] MEDS: INSULIN LISPRO 300 UNIT/3 ML PEN SUBQ SCH ×4 (09:06→21:01)
[2023-08-02] MEDS: LOSARTAN 50 MG TABLET PO SCH (09:06)
[2023-08-02] MEDS: polyethylene glycoL 3350 17 GM PACKET PO SCH (09:07)
[2023-08-02] MEDS: carvediloL 3.125 MG TABLET PO SCH ×2 (09:07→21:01)
[2023-08-02] MEDS: MULTIVITAMIN TABLET PO SCH (09:07)
[2023-08-02] MEDS: metFORMIN 500 MG TABLET PO SCH ×2 (09:07→16:50)
[2023-08-02] MEDS: cefTRIAXone 2 GM in SODIUM CHLORIDE 0.9% MINIBAG 100 ML IV SCH (09:08)
[2023-08-02] MEDS: ATORVASTATIN 40 MG TABLET PO SCH (21:00)
[2023-08-02] MEDS: IMIPRAMINE 25 MG TABLET PO SCH (21:00)
[2023-08-03] MEDS: LOSARTAN 50 MG TABLET PO SCH (08:03)
[2023-08-03] MEDS: metFORMIN 500 MG TABLET PO SCH ×2 (08:03→17:05)
[2023-08-03] MEDS: carvediloL 3.125 MG TABLET PO SCH ×2 (08:04→22:00)
[2023-08-03] MEDS: CLOPIDOGREL 75 MG TABLET PO SCH (08:04)
[2023-08-03] MEDS: SENNA 8.6 MG TABLET PO SCH (08:04)
[2023-08-03] MEDS: MULTIVITAMIN TABLET PO SCH (08:05)
[2023-08-03] MEDS: LACTOBACILLUS RHAMNOSUS GG CAPSULE PO SCH (08:05)
[2023-08-03] MEDS: INSULIN LISPRO 300 UNIT/3 ML PEN SUBQ SCH ×4 (08:05→22:00)
[2023-08-03] MEDS: cefTRIAXone 2 GM in SODIUM CHLORIDE 0.9% MINIBAG 100 ML IV SCH (08:05)
[2023-08-03] MEDS: polyethylene glycoL 3350 17 GM PACKET PO SCH (08:06)
[2023-08-03] MEDS: SODIUM CHLORIDE FLUSH 0.9% 10 ML SYRINGE IVP SCH ×3 (08:06→23:29)
--- NOTE | 2023-08-03 17:53 | PROVIDER PROGRESS NOTE ---
Subjective - Prog Note Date Prog Note Date: 08/03/23 Prog Note Time: 17:51 - Subjective Subjective: Sitting upright in bed today. Then also in a chair. Not oriented to person place or time. Speech is present but confabulates and sentence structure does not make sense. But he is comfortable. Cooperative. Current Medications - Current Medications Current Medications: Active Medications Acetaminophen (Acetaminophen 325 Mg Tablet) 650 mg PO Q4HR PRN PRN Reason: Pain 1 to 4, or Fever Last Admin: 07/31/23 16:59 Dose: 650 mg Atorvastatin Calcium (Atorvastatin 40 Mg Tablet) 40 mg PO QPM [facility] Last Admin: 08/02/23 21:00 Dose: 40 mg Carvedilol (Carvedilol 3.125 Mg Tablet) 6.25 mg PO BID [facility] Last Admin: 08/03/23 08:04 Dose: 6.25 mg Clopidogrel Bisulfate (Clopidogrel 75 Mg Tablet) 75 mg PO DAILY [facility] Last Admin: 08/03/23 08:04 Dose: 75 mg Ceftriaxone Sodium 2 gm/ (Sodium Chloride) 100 mls @ 200 mls/hr IV DAILY [facility] Last Infusion: 08/03/23 15:00 Dose: Infused Imipramine HCl (Imipramine 25 Mg Tablet) 100 mg PO HS [facility] Last Admin: 08/02/23 21:00 Dose: 100 mg Insulin Human Lispro (Insulin Lispro 300 Unit/3 Ml Pen) 1 - 9 unit SUBQ 0800,1200,1700,2100 [facility]; Protocol Last Admin: 08/03/23 16:49 Dose: Not Given Lactobacillus Rhamnosus (Lactobacillus Rhamnosus Gg Capsule) 1 cap PO DAILY [facility] Last Admin: 08/03/23 08:05 Dose: 1 cap Losartan Potassium (Losartan 50 Mg Tablet) 50 mg PO DAILY [facility] Last Admin: 08/03/23 08:03 Dose: 50 mg Metformin HCl (Metformin 500 Mg Tablet) 1,000 mg PO BIDWM [facility] Last Admin: 08/03/23 17:05 Dose: 1,000 mg Multivitamins (Multivitamin Tablet) 1 tab PO DAILYWM [facility] Last Admin: 08/03/23 08:05 Dose: 1 tab Polyethylene Glycol (Polyethylene Glycol 3350 17 Gm Packet) 17 gm PO DAILY [facility] Last Admin: 08/03/23 08:06 Dose: Not Given Senna (Senna 8.6 Mg Tablet) 8.6 - 17.2 mg PO DAILY [facility] Last Admin: 08/03/23 08:04 Dose: 8.6 mg Sodium Chloride (Sodium Chloride Flush 0.9% 10 Ml Syringe) 10 ml IVP 0100,0900,1700 [facility] Last Admin: 08/03/23 17:05 Dose: 10 ml Sodium Chloride (Sodium Chloride Flush 0.9% 10 Ml Syringe) 10 ml IVP PRN PRN PRN Reason: Per Line Care protocol Last Admin: 07/31/23 16:29 Dose: 10 ml Zinc Oxide (Cod Liver Oil/Zinc Oxide 113 Gm Tube) 113 gm TOP PRN PRN PRN Reason: Skin Care Last Admin: 07/31/23 16:33 Dose: 1 applic Imipramine HCl 100 mg PO HS 01/11/13 Metformin HCl 1,000 mg PO BID 01/11/13 Clopidogrel [Plavix] 75 mg PO DAILY 09/06/22 Losartan Potassium 25 mg PO DAILY 09/06/22 Multivitamin 1 each PO DAILY 01/13/23 Acetaminophen [Tylenol] 650 mg PO TID 07/23/23 Atorvastatin Calcium 40 mg PO QPM 07/23/23 Diclofenac Sodium 1% Gel [Voltaren Gel] 2 gm TOP BID 07/23/23 carvediloL [Coreg] 6.25 mg PO BID 07/23/23 Objective - Vital Signs/Intake & Output Reviewed Vital Signs: Yes Intake & Output: Intake & Output 07/31/23 08/01/23 08/02/23 08/03/23 23:59 23:59 23:59 23:59 Intake Total 620 1500 560 700 Output Total 200 250 Balance 420 1500 310 700 - Objective General Appearance: positive: No acute distress, Alert, Other (5 foot 10 elderly gentleman, 84 kg sitting upright in chair) Eyes Bilateral: positive: PERRL, EOMI ENT: positive: No signs of dehydration Neck: positive: No JVD. negative: Stiff neck Respiratory: positive: No respiratory distress. negative: Wheezes, Rales, Rhonchi Cardiovascular: positive: Regular rate & rhythm Abdomen: positive: Non-tender, No organomegaly, Nml bowel sounds Skin: positive: Warm, Dry Neurologic/Psychiatric: positive: CN's nml (2-12), Motor nml, Disoriented to person, Disoriented to place, Disoriented to time - Lab Results Other Labs: Lab Results x24hrs 08/03/23 08/03/23 08/03/23 Range/Units 16:42 11:37 08:05 POC Whole Bld Glucose 108 H 154 H 125 H (70 - 100) mg/dL 08/02/23 Range/Units 20:44 POC Whole Bld Glucose 130 H (70 - 100) mg/dL ABX Reporting Has patient been on IV antibiotics over the past 48 hours?: Yes Assessment/Plan - Problem List (1) Bacteremia due to Streptococcus Impression: The patient had a PICC line inserted Before admission. But after the repeat blood cultures came back negative Plan: The plan is for IV antibiotics using ceftriaxone 2 g IV daily, to complete a 14- day course, this will go through 08/06/2023 (2) DM2 (diabetes mellitus, type 2) Conclusion/Plan: Glucose yesterday was 138, 212, 107, 134. Today he is 125, 154, 108. He appears to be well-controlled on current plan. Plan: Continue continue a diabetic diet Hypoglycemic protocol Fingerstick checks, sliding scale insulin coverage Continues metformin 1000 twice daily WM (3) Dementia Conclusion/Plan: Plan: Supportive care (4) CAD (coronary artery disease) Conclusion/Plan: Plan: His cardiac and HTN meds will be continued
[2023-08-03] MEDS: ATORVASTATIN 40 MG TABLET PO SCH (22:00)
[2023-08-03] MEDS: IMIPRAMINE 25 MG TABLET PO SCH (22:00)
[2023-08-04] MEDS: INSULIN LISPRO 300 UNIT/3 ML PEN SUBQ SCH ×4 (09:13→21:03)
[2023-08-04] MEDS: MULTIVITAMIN TABLET PO SCH (09:14)
[2023-08-04] MEDS: LOSARTAN 50 MG TABLET PO SCH (09:14)
[2023-08-04] MEDS: polyethylene glycoL 3350 17 GM PACKET PO SCH (09:14)
[2023-08-04] MEDS: cefTRIAXone 2 GM in SODIUM CHLORIDE 0.9% MINIBAG 100 ML IV SCH (09:14)
[2023-08-04] MEDS: carvediloL 3.125 MG TABLET PO SCH ×2 (09:14→21:00)
[2023-08-04] MEDS: CLOPIDOGREL 75 MG TABLET PO SCH (09:15)
[2023-08-04] MEDS: SENNA 8.6 MG TABLET PO SCH (09:15)
[2023-08-04] MEDS: SODIUM CHLORIDE FLUSH 0.9% 10 ML SYRINGE IVP SCH ×2 (09:15→20:59)
[2023-08-04] MEDS: LACTOBACILLUS RHAMNOSUS GG CAPSULE PO SCH (09:15)
[2023-08-04] MEDS: metFORMIN 500 MG TABLET PO SCH ×2 (09:15→17:39)
[2023-08-04] MEDS: ATORVASTATIN 40 MG TABLET PO SCH (21:00)
[2023-08-04] MEDS: IMIPRAMINE 25 MG TABLET PO SCH (21:03)
[2023-08-05] MEDS: SODIUM CHLORIDE FLUSH 0.9% 10 ML SYRINGE IVP SCH ×3 (01:15→20:23)
[2023-08-05] MEDS: cefTRIAXone 2 GM in SODIUM CHLORIDE 0.9% MINIBAG 100 ML IV SCH (08:28)
[2023-08-05] MEDS: polyethylene glycoL 3350 17 GM PACKET PO SCH (08:28)
[2023-08-05] MEDS: INSULIN LISPRO 300 UNIT/3 ML PEN SUBQ SCH ×4 (08:28→20:24)
[2023-08-05] MEDS: carvediloL 3.125 MG TABLET PO SCH ×2 (08:29→20:22)
[2023-08-05] MEDS: SENNA 8.6 MG TABLET PO SCH (08:29)
[2023-08-05] MEDS: CLOPIDOGREL 75 MG TABLET PO SCH (08:29)
[2023-08-05] MEDS: MULTIVITAMIN TABLET PO SCH (08:29)
[2023-08-05] MEDS: LACTOBACILLUS RHAMNOSUS GG CAPSULE PO SCH (08:29)
[2023-08-05] MEDS: metFORMIN 500 MG TABLET PO SCH ×2 (08:30→16:11)
[2023-08-05] MEDS: LOSARTAN 50 MG TABLET PO SCH (08:30)
[2023-08-05] MEDS: ACETAMINOPHEN 325 MG TABLET PO PRN (16:10)
[2023-08-05] MEDS: ATORVASTATIN 40 MG TABLET PO SCH (20:30)
[2023-08-05] MEDS: IMIPRAMINE 25 MG TABLET PO SCH (20:31)
[2023-08-06] MEDS: SODIUM CHLORIDE FLUSH 0.9% 10 ML SYRINGE IVP SCH ×2 (06:45→08:12)
[2023-08-06] MEDS: CLOPIDOGREL 75 MG TABLET PO SCH (08:11)
[2023-08-06] MEDS: SENNA 8.6 MG TABLET PO SCH (08:11)
[2023-08-06] MEDS: MULTIVITAMIN TABLET PO SCH (08:11)
[2023-08-06] MEDS: LOSARTAN 50 MG TABLET PO SCH (08:11)
[2023-08-06] MEDS: carvediloL 3.125 MG TABLET PO SCH (08:12)
[2023-08-06] MEDS: polyethylene glycoL 3350 17 GM PACKET PO SCH (08:12)
[2023-08-06] MEDS: LACTOBACILLUS RHAMNOSUS GG CAPSULE PO SCH (08:12)
[2023-08-06] MEDS: INSULIN LISPRO 300 UNIT/3 ML PEN SUBQ SCH ×2 (08:13→11:57)
[2023-08-06] MEDS: cefTRIAXone 2 GM in SODIUM CHLORIDE 0.9% MINIBAG 100 ML IV SCH (08:13)
--- NOTE | 2023-08-06 09:25 | Discharge Plan ---
"Discharge Plan for SNF / [facility] - Discharge Plan And Transition Orders Problem Reviewed?: Yes Disposition: 01 Home, Self Care Condition: Stable Allergies and Adverse Reactions: Allergies Allergy/AdvReac Type Severity Reaction Status Date / Time peanut Allergy Severe Respiratory Verified 07/22/23 20:13 Health Concerns: This claudette gentleman has a history of dementia, diabetes, hypertension, coronary artery disease. Due to his dementia he is minimally communicative and lives in an assisted living facility. He presents with sepsis criteria and was found to be bacteremic. His blood cultures grew strep. Echo shows no suspicious vegetations. He is to finish a 2-week course of antibiotics and was transition from acute care status to swing bed status. He was admitted on July 22. Transition to swing bed status on July 27. He has completed 2 weeks of antibiotic therapy today. Plan of Treatment: Patient has completed therapy. He has not returned to his usual domicile. He lives in an assisted living facility. There are no change in his home medications Care Goals: At this time to be kept comfortable, and to avoid further hospitalizations - SNF / [facility] Transition Orders Admit to (Facility): [facility] Under [facility] care of (Name): DAVID Aceves Discharge Diagnosis: 1. Bacteremia due to Streptococcus 2. Type 2 diabetes mellitus, controlled without long-term use of insulin 3. Dementia 4. Coronary artery disease Medicare Certification Statement: Notify PCP of admission and forward orders to primary provider for signature. Other Notification Orders: Call PCP immediately if patient develops dyspnea, chest pain/tightness or edema. Additional Bowel Program Orders: If no BM after 2 days, nurse may give M.O.M. 30ml PO PRN and/or ducolax Supp 1 [place] and/or LILIANE 250mg P.O., and/or senna 1-2 tabs PO. On day 3 nurse may give repeat above order until residents constipation is resolved. Annual Influenza Vaccine (between May 12 and December 09): Yes Medication Orders: PLEASE REFER TO THE DISCHARGE MEDICATION LIST. Insulin Orders?: No - Diet Type: No added sugar Texture: Regular Liquids: Thin May have monthly special meal: Yes - Therapies | Activity Assistance Devices: Wheelchair"
[2023-08-06] MEDS: metFORMIN 500 MG TABLET PO SCH (09:35)
--- NOTE | 2023-08-06 10:34 | DISCHARGE SUMMARY ---
Discharge Summary Admit Date: 07/27/23 Discharge Date: 08/06/23 Discharging Provider: Fifi Aparicio MD Primary Care Provider: DAVID Aceves Code Status: Do Not Attempt Resuscitation Condition at Discharge: Stable Discharge Disposition: 01 Home, Self Care - DIAGNOSES Discharge Diagnoses with Status of Each Condition: 1. Bacteremia due to Streptococcus 2. Type 2 diabetes mellitus, controlled without long-term use of insulin 3. Dementia 4. Coronary artery disease - HPI History of Present Illness: This is an 83-year-old male with a history of dementia, DM, HTN, CAD. He is minimally communicative and lives in a facility. He presented with sepsis and was found to be bacteremic. The blood culture grew Strep. His Echo showed no suspicion for vegetations. A PICC line has been inserted and he needs to finish a total 2-week course of IV antibiotics. He is being admitted to [facility] (Swing bed status) to complete his course of IV antibiotics. His CODE STATUS is DNR/DNI. - Past Medical History Cardiovascular: reports: Hypertension, High cholesterol, Coronary artery disease, [place], Arrhythmia, Other Respiratory: reports: Pneumonia Neuro: reports: Dementia Endocrine/Autoimmune: reports: Type 2 diabetes GI: reports: Chronic constipation, Diverticulitis HEENT: reports: Macular degeneration, Chronic hearing loss Musculoskeletal: reports: Gout, Other Derm: reports: Other MRSA Hx?: No - Past Surgical History General: reports: Cholecystectomy, Bowel surgery, Colonoscopy Cardiovascular: reports: Angioplasty - HOSPITAL COURSE Hospital Course: (1) Bacteremia due to Streptococcus Impression: The patient had a PICC line inserted Before admission. But after the repeat blood cultures came back negative Planned treatment for IV antibiotics was ceftriaxone 2 g IV daily, to complete a 14-day course, this completed 08/06/2023 (2) DM2 (diabetes mellitus, type 2) Conclusion/Plan: Glucose today before discharge was 130, 168, 130. On the morning of discharge he was 116. This was on a low-carb diet, lispro insulin that was sliding scale before meals and metformin 1000 mg p.o. twice daily. The day before discharge she received only 1 unit. On the day of discharge no insulin given. As such she will be discharged on his usual home meds without any change. (3) Dementia Conclusion/Plan: There were no behavioral issues during his stay. No need for restraints or sedatives. (4) CAD (coronary artery disease) Conclusion/Plan: His usual medications for blood pressure, cholesterol and Plavix were resumed during his stay. Those were continued at discharge. On the day of discharge, we have removed his PICC line. Temperature is 36.2. Heart rate 65. Blood pressure 115/77. Respirations 18. 98% on room air. This pleasant demented gentleman does not know where he is, why he is here. But he is not enthusiastic eater. He does follow commands. Lungs are clear. Regular rate and rhythm. Abdomen is soft and nontender. Last bowel movement was Novemb er 25. PICC line is now removed. Pressure held. Extremities are without edema. He is incontinent of urine and uses a brief/pad. He is eating anywhere between 50 to 100% of his food. Greater than 30 minutes was spent coordinating discharge. I am asking his assisted living facility to make sure he follows up with his primary care provider in the next 1 to 2 weeks. No new medicines for home and he will be resumed on his usual home medicines This document was made in part using voice recognition software. While efforts are made to proofread this document, sound alike and grammatical errors may occur. - ALLERGIES Allergies/Adverse Reactions: Allergies Allergy/AdvReac Type Severity Reaction Status Date / Time peanut Allergy Severe Respiratory Verified 07/22/23 20:13 - MEDICATIONS Home Medications: Ambulatory Orders Medication Instructions Recorded Confirmed Imipramine HCl 100 mg PO HS 01/11/13 07/28/23 Metformin HCl 1,000 mg PO BID 01/11/13 07/28/23 Clopidogrel [Plavix] 75 mg PO DAILY 09/06/22 07/28/23 Losartan Potassium 25 mg PO DAILY 09/06/22 07/28/23 Multivitamin 1 each PO DAILY 01/13/23 07/28/23 Acetaminophen [Tylenol] 650 mg PO TID 07/23/23 07/28/23 Atorvastatin Calcium 40 mg PO QPM 07/23/23 07/28/23 Diclofenac Sodium 1% Gel [Voltaren 2 gm TOP BID 07/23/23 07/28/23 Gel] carvediloL [Coreg] 6.25 mg PO BID 07/23/23 07/28/23
[2023-08-06 11:57] VITALS: BP 110/62; O2SAT 100
== END 2023-08-06 13:21 | disposition home or self-care (01) | DRG 872 ==
LOC: MS2 14:53
PROVIDERS: ADMIT Internal Medicine; ATTEND Specialist
DX: R78.81 Bacteremia (principal); B95.5 Unspecified streptococcus as the cause of diseases classified elsewhere; E11.9 Type 2 diabetes mellitus without complications; F03.90 Unspecified dementia, unspecified severity, without behavioral disturbance, psychotic disturbance, mood disturbance, and anxiety; I25.10 Atherosclerotic heart disease of native coronary artery without angina pectoris; I10 Essential (primary) hypertension; R32 Unspecified urinary incontinence; E78.00 Pure hypercholesterolemia, unspecified; I25.2 Old myocardial infarction; Z79.84 Long term (current) use of oral hypoglycemic drugs

== ENCOUNTER 2023-08-06 13:21 | Outpatient (CLI) | payer MEDICARE | END 2023-08-06 13:22 | disposition home or self-care (01) | LOC: EMS 13:21 | PROVIDERS: ATTEND Specialist | DX: R41.0 Disorientation, unspecified (principal); F03.90 Unspecified dementia, unspecified severity, without behavioral disturbance, psychotic disturbance, mood disturbance, and anxiety | CPT/HCPCS: A0425; A0428 ==

== ENCOUNTER 2023-09-02 08:40 | Outpatient (CLI) | payer MEDICARE | END 2023-09-02 08:41 | disposition critical access hospital (66) | LOC: EMS 08:40 | DX: R05.9 Cough, unspecified (principal); R09.89 Other specified symptoms and signs involving the circulatory and respiratory systems; L27.2 Dermatitis due to ingested food; L50.0 Allergic urticaria; R06.2 Wheezing; T78.1XXA Other adverse food reactions, not elsewhere classified, initial encounter | CPT/HCPCS: A0425; A0427 ==

== ENCOUNTER 2023-09-02 08:59 | Emergency (ER) | payer MEDICARE ==
[2023-09-02] MEDS ORDERED: predniSONE 20 MG TABLET PO STA (09:28)
[2023-09-02] MEDS ORDERED: FAMOTIDINE 20 MG/2 ML VIAL IVP STA (09:28)
[2023-09-02] MEDS ORDERED: diphenhydrAMINE 25 MG CAPSULE PO STA (09:30)
--- NOTE | 2023-09-02 09:44 | ED Physician Documentation ---
History of Present Illness - Stated complaint Stated Complaint: ALLERGIC REACTION - Chief complaint Chief Complaint: Allergic Rx - History obtained from History obtained from: Patient - Additonal information Additional information: Patient is an 83-year-old male with a history of dementia presenting for evaluation of an anaphylaxis reaction. Patient has a known history to peanuts. He was getting impatient for breakfast and went into another resident's room and ate 2 bar of stickers. He Started coughing and became flushed. EMS administered 0.3 IM epinephrine around 9:00 this morning. They also administered an albuterol treatment. Patient is confused but pleasant and appears to be at his baseline. He is unsure of why he is here. Review of Systems Unable to obtain: Dementia PD PAST MEDICAL HISTORY - Past Medical History Cardiovascular: Hypertension, High cholesterol, Coronary artery disease, [place], Arrhythmia, Other Respiratory: Pneumonia Neuro: Dementia Endocrine/Autoimmune: Type 2 diabetes GI: Chronic constipation, Diverticulitis HEENT: Macular degeneration, Chronic hearing loss Musculoskeletal: Gout, Other Derm: Other - Past Surgical History Past Surgical History: Yes General: Cholecystectomy, Bowel surgery, Colonoscopy Cardiovascular: Angioplasty - Present Medications Home Medications: Ambulatory Orders Medication Instructions Recorded Confirmed Imipramine HCl 100 mg PO HS 01/11/13 07/28/23 Metformin HCl 1,000 mg PO BID 01/11/13 07/28/23 Clopidogrel [Plavix] 75 mg PO DAILY 09/06/22 07/28/23 Losartan Potassium 25 mg PO DAILY 09/06/22 07/28/23 Multivitamin 1 each PO DAILY 01/13/23 07/28/23 Acetaminophen [Tylenol] 650 mg PO TID 07/23/23 07/28/23 Atorvastatin Calcium 40 mg PO QPM 07/23/23 07/28/23 Diclofenac Sodium 1% Gel [Voltaren 2 gm TOP BID 07/23/23 07/28/23 Gel] carvediloL [Coreg] 6.25 mg PO BID 07/23/23 07/28/23 EPINEPHrine [Epinephrine] 0.3 mg IJ ONCE PRN #2 each 09/02/23 predniSONE [Deltasone] 40 mg PO DAILY 2 Days #4 tablet 09/02/23 - Allergies Allergies/Adverse Reactions: Allergies Allergy/AdvReac Type Severity Reaction Status Date / Time peanut Allergy Severe Respiratory Verified 07/22/23 20:13 - Social History Does the pt smoke?: No Smoking Status: Never smoker Does the pt drink ETOH?: No Does the pt have substance abuse?: No - Immunizations Immunizations are current?: Yes - POLST Patient has POLST: No PD ED PE NORMAL - General General: No acute distress, Well developed/nourished. No: Alert and oriented X 3 (Alert and oriented to person) - HEENT HEENT: Atraumatic, Moist mucous membranes, Pharynx benign (No oral swelling, erythema or exudate) - Neck Neck: Supple, no meningeal sign - Cardiac Cardiac: RRR, Strong equal pulses - Respiratory Respiratory: No respiratory distress, Clear bilaterally - Abdomen Abdomen: Normal bowel sounds, Soft, Non tender, Non distended - Derm Derm: Warm and dry - Extremities Extremities: No calf tenderness / cord - Neuro Neuro: Normal speech Results - Vitals Vitals: Vital Signs - 24 hr 09/02/23 09/02/23 09/02/23 09:08 11:27 12:15 Temperature 36.5 C 36.4 C L Heart Rate 70 73 71 Respiratory 18 20 18 Rate Blood Pressure 145/67 H 131/73 H 141/77 H O2 Saturation 100 99 98 Oxygen O2 Source Room air PD Medical Decision Making - ED course Complexity details: re-evaluated patient, d/w patient, d/w family ED course: Patient is an 83-year-old male presenting for evaluation after anaphylaxis reaction. He has a history of dementia and did not remember that he has an allergy to peanuts and ate a Snickers bar. He was given IM epi prior to arrival. On arrival here he does not have symptoms of ongoing anaphylaxis. He was monitored for several hours without symptoms to suggest rebound.He was also given Benadryl, Prednisone, famotidine. Daughter is with him at the bedside. Counseled regarding treatment plan, importance of staying away from peanuts as well as concerning symptoms to return for. Departure - Departure Disposition: 01 Home, Self Care Clinical Impression: Anaphylactic reaction Condition: Stable Instructions: ED Anaphylaxis General Prescriptions: predniSONE [Deltasone] 40 mg PO DAILY 2 Days #4 tablet EPINEPHrine [Epinephrine] 0.3 mg IJ ONCE PRN #2 each PRN Reason: Allergy Symptoms Comments: You were treated for an anaphylaxis reaction which is a severe allergic reaction. Please speak with staff at home place to try and eliminate exposure to peanuts. He did receive epinephrine from the paramedics. I sent a refill of an EpiPen as well as a 2day script for steroids (next dose 09/03) to [facility] in [place]. If you start have any symptoms such as hives, difficulty breathing or any other concerns please call 911 and you may need staff to administer an another EpiPen. Return to the ER with any worsening symptoms. Forms: PCP List Discharge Date/Time: 09/02/23 12:16
[2023-09-02 12:20] VITALS: BP 141/77; O2SAT 98
== END 2023-09-02 12:16 | disposition home or self-care (01) ==
LOC: EDUNIT# → ED 08:59
DX: T78.01XA Anaphylactic reaction due to peanuts, initial encounter (principal)
CPT/HCPCS: 96374; 99283; 99284; A9270; J7512

== ENCOUNTER 2023-12-02 02:12 | Outpatient (CLI) | payer MEDICARE | END 2023-12-02 23:59 | disposition critical access hospital (66) | LOC: EMS 02:12 | DX: S00.83XA Contusion of other part of head, initial encounter (principal); W07.XXXA Fall from chair, initial encounter; Y92.098 Other place in other non-institutional residence as the place of occurrence of the external cause; F03.90 Unspecified dementia, unspecified severity, without behavioral disturbance, psychotic disturbance, mood disturbance, and anxiety; Z79.02 Long term (current) use of antithrombotics/antiplatelets | CPT/HCPCS: A0425; A0429 ==

== ENCOUNTER 2023-12-02 02:31 | Emergency (ER) | payer MEDICARE ==
--- NOTE | 2023-12-02 02:35 | ED Physician Documentation ---
PD HPI Fall - Stated complaint Stated Complaint: GLF - History obtained from History obtained from: EMS - Additional information Additional information: BIBA. HPI from EMS; patient is unable to provide reliable HPI/ROS due to dementia. The patient is presenting from a local memory care facility. Patient was found in his room on the floor approximately 01:40 this morning with obvious acute swelling and bleeding from left forehead. Patient's medications include Plavix. Per EMS report, staff at the memory care facility indicated that patient is currently at his baseline mental status. Review of Systems Unable to obtain: Dementia PD PAST MEDICAL HISTORY - Past Medical History Cardiovascular: Hypertension, High cholesterol, Coronary artery disease, [place], Arrhythmia, Other Respiratory: Pneumonia Neuro: Dementia Endocrine/Autoimmune: Type 2 diabetes GI: Chronic constipation, Diverticulitis HEENT: Macular degeneration, Chronic hearing loss Musculoskeletal: Gout, Other Derm: Other - Past Surgical History Past Surgical History: Yes General: Cholecystectomy, Bowel surgery, Colonoscopy Cardiovascular: Angioplasty - Present Medications Home Medications: Ambulatory Orders Medication Instructions Recorded Confirmed Imipramine HCl 100 mg PO HS 01/11/13 07/28/23 Metformin HCl 1,000 mg PO BID 01/11/13 07/28/23 Clopidogrel [Plavix] 75 mg PO DAILY 09/06/22 07/28/23 Losartan Potassium 25 mg PO DAILY 09/06/22 07/28/23 Multivitamin 1 each PO DAILY 01/13/23 07/28/23 Acetaminophen [Tylenol] 650 mg PO TID 07/23/23 07/28/23 Atorvastatin Calcium 40 mg PO QPM 07/23/23 07/28/23 Diclofenac Sodium 1% Gel [Voltaren 2 gm TOP BID 07/23/23 07/28/23 Gel] carvediloL [Coreg] 6.25 mg PO BID 07/23/23 07/28/23 EPINEPHrine [Epinephrine] 0.3 mg IJ ONCE PRN #2 each 09/02/23 predniSONE [Deltasone] 40 mg PO DAILY 2 Days #4 tablet 09/02/23 - Allergies Allergies/Adverse Reactions: Allergies Allergy/AdvReac Type Severity Reaction Status Date / Time peanut Allergy Severe Respiratory Verified 12/02/23 02:46 - Social History Does the pt smoke?: No Smoking Status: Never smoker Does the pt drink ETOH?: No Does the pt have substance abuse?: No - Immunizations Immunizations are current?: Yes - POLST Patient has POLST: No PD ED PE NORMAL - Vitals Vital signs reviewed: Yes - General General: Other (awake, alert, oriented to self only. answers to my questions are mostly vague and at times gibberish) - HEENT HEENT: PERRL - Neck Neck: Supple, no meningeal sign, No bony TTP - Neuro Eye Opening: Spontaneous Motor: Obeys Commands Verbal: Confused GCS Score: 14 PD ED PE EXPANDED - HEENT HEENT Visual: 1 - laceration (skin tear but no laceration per se), swelling, tenderness Results - Vitals Vitals: Vital Signs - 24 hr 12/02/23 12/02/23 12/02/23 02:31 04:37 05:50 Temperature 35.9 C L Heart Rate 52 L 52 L 45 L Respiratory 16 16 Rate Blood Pressure 157/65 H 112/40 L O2 Saturation 96 98 97 Oxygen O2 Source Room air - Rads (name of study) CTH Relevant Findings:: Prelim report reviewed, See rad report CT cervical spine Relevant Findings:: Prelim report reviewed, See rad report PD Medical Decision Making - ED course Complexity details: reviewed results, re-evaluated patient, considered differential, d/w patient ED course: No concerning findings on CTH (scalp hematoma noted, which is obvious on exam) nor on CT cervical spine. He is given tdap and then discharged back to memory care at [facility] Departure - Departure Disposition: 01 Home, Self Care Clinical Impression: Head contusion Condition: Good Instructions: ED Head Injury Closed Comments: There were no concerning findings on the CT scans of your head and neck; specifically, no evidence of fracture of vertebra in the neck and no evidence of skull fracture nor bleeding inside of the skull on the CT head. Forms: PCP List Discharge Date/Time: 12/02/23 06:00
[2023-12-02] MEDS ORDERED: TETANUS/DIPHTHERIA/PERTUSSIS 0.5 ML SYRINGE IM ONE (04:03)
[2023-12-02] MEDS: TETANUS/DIPHTHERIA/PERTUSSIS 0.5 ML SYRINGE IM ONE (04:06)
[2023-12-02 06:13] VITALS: BP 112/40; O2SAT 97
--- NOTE | 2023-12-02 07:35 | CT Report ---
PROCEDURE: Head WO INDICATIONS: fall, head injury TECHNIQUE: Noncontrast 4.5 mm thick angled axial sections acquired from the foramen magnum to the vertex. For r adiation dose reduction, the following was used: automated exposure control, adjustment of mA and/or kV according to patient size. COMPARISON: CT head, 07/22/2023. FINDINGS: Image quality: Excellent. CSF spaces: Basal cisterns are patent. No extra-axial fluid collections. Cerebral volume loss and p eriventricular white matter chronic small vessel ischemic changes. Ventricles are normal in size and shape. Brain: No midline shift. No intracranial masses or hemorrhage. Anglin-white matter interface is norm al. Skull and face: Left frontal scalp and small to moderate sized subscapular hematoma. Calvarium and v isualized facial bones are intact, without suspicious lesions. Sinuses: Mucosal thickening in maxillary sinuses bilaterally, right greater than left. Right mastoid is opacified. IMPRESSION: 1. No acute intracranial pathology. 2. Cerebral volume loss and periventricular white matter chronic small vessel ischemic changes. 3. Left frontal scalp contusion and [id number] sized subcutaneous scalp hematoma. 4. Bilateral maxillary sinus disease. 5. Opacification of the right mastoids. Comment clinical question for mastoiditis. No significant discrepancy with the preliminary interpretation. Reviewed by: Natalie Courtney MD on 12/02/2023 7:33 AM PDT Approved by: Natalie Courtney MD on 12/02/2023 7:33 AM PDT Station ID: [id number]
--- NOTE | 2023-12-02 07:38 | CT Report ---
PROCEDURE: Cervical Spine WO INDICATIONS: fall, dementia TECHNIQUE: Noncontrast 3 mm thick sections acquired from the skull base to the T4 level. Sagittal and coronal r eformats were then constructed. For radiation dose reduction, the following was used: automated exp osure control, adjustment of mA and/or kV according to patient size. COMPARISON: None. FINDINGS: Image quality: Excellent. Bones: No fractures or dislocations. Moderate to severe degenerative disc disease facet neuropathy a t C5-6 and C6-C7. Moderate atlantoaxial joint degeneration. Visualized superior ribs are intact. Soft tissues: Prevertebral soft tissues are normal in thickness. No paravertebral hematomas. No ap ical pneumothoraces. IMPRESSION: 1. No acute cervical spine injuries. 2. Degenerative disc and facet disease. Findings are concordant with preliminary interpretation provided by [facility]. Reviewed by: Natalie Courtney MD on 12/02/2023 7:37 AM PDT Approved by: Natalie Courtney MD on 12/02/2023 7:37 AM PDT Station ID: [id number]
== END 2023-12-02 06:00 | disposition home or self-care (01) ==
LOC: EDUNIT# → ED 02:31
DX: S00.03XA Contusion of scalp, initial encounter (principal); W19.XXXA Unspecified fall, initial encounter; Y92.092 Bedroom in other non-institutional residence as the place of occurrence of the external cause; F03.90 Unspecified dementia, unspecified severity, without behavioral disturbance, psychotic disturbance, mood disturbance, and anxiety; I10 Essential (primary) hypertension; E11.9 Type 2 diabetes mellitus without complications; Z79.84 Long term (current) use of oral hypoglycemic drugs; Z23 Encounter for immunization
CPT/HCPCS: 90471; 99283; 99284

== ENCOUNTER 2023-12-02 06:03 | Outpatient (CLI) | payer MEDICARE | END 2023-12-02 23:59 | disposition home or self-care (01) | LOC: EMS 06:03 | PROVIDERS: ATTEND Emergency Medicine | DX: R41.0 Disorientation, unspecified (principal); S00.81XA Abrasion of other part of head, initial encounter; W19.XXXA Unspecified fall, initial encounter; F03.90 Unspecified dementia, unspecified severity, without behavioral disturbance, psychotic disturbance, mood disturbance, and anxiety | CPT/HCPCS: A0425; A0428 ==